=== PATIENT | female | born 1985 | race Two or more races ===

== ENCOUNTER 2024-10-22 14:15 | Inpatient (IN) | payer MEDICAID ==
[~2024-10-22] VITALS: Ht 162.6 cm; Wt 101.7 kg
--- NOTE | 2024-10-22 14:22 | DVHHP2 ---
History of Present Illness Reason for Visit: LEFT FOOT ULCER History of Present Illness Tuyet Hooks is a 39-year-old female with past medical history of hypertension, hyperlipidemia, diabetes type 2, right knee surgery, right foot surgery, left foot partial amputation, and who presents to the hospital with left foot ulcer with podiatry. Per podiatry she will have surgery this Friday. Patient also reports that she had pneumonia since June and was not taking medications for it. Patient states that she is allergic to Dilaudid gets hives and GI symptoms. She also reports that penicillin she has a high tolerance to which is no longer effective. Patient states that she sees a auto polisher, hop picker, and sales department clerk. She denies any chest pain, shortness of breath, fever, chills, lightheadedness, weakness, dizziness, abdominal pain, nausea, vomiting, or diarrhea. Cardiovascular: HTN, hyperipidemia Endocrine: Diabetes Past Surgical History: , Other (Right knee surgery, right foot surgery, and left foot partial amputation) Family History: Cancer, DM, Other (Mom with colon cancer dad with diabetes) Smoke: No ALCOHOL: none Drugs: None Lives: with Family Domestic Violence: Neg Review of Systems Skin: Other (Left foot ulcer) Exam General Appearance: Alert, Oriented X3, Cooperative, No acute distress Respiratory: Normal air movement Cardiovascular: Normal S1, Normal S2 Extremities: Other Neuro: Normal gait, Normal speech, Sensation intact Psych/Mental Status: Mental status NL, Mood NL Assessment/Plan Assessment/Plan Assessment Ulcer of left foot rule out cellulitis Rule out pneumonia Callus of foot History of hypertension History of hyperlipidemia History of diabetes type 2 History of right knee surgery History of right foot surgery History of left partial foot amputation History of C-sections Plan Admit to med surge Antiemetics Pain management IV antibiotics-clindamycin CBC BNP ESR CRP Lactic Blood cultures Chest x-ray ordered Wound culture Diet Hemoglobin A1c ISS and Accu-Cheks Home medications reconciled DVT prophylaxis-SCDs PUD prophylaxis-not indicated history of GERD or GI bleed Podiatry following Plan for surgery on Friday Plan discussed with: Patient My Orders Orders - DESHAWN POOLE ORDER SCHEDULE CLERK Procedure Category Date Status Time Admit ADMIT 10/22/24 Verified 14:21 Allergies JASKARAN 10/22/24 Verified 14:21 Code Status CODE 10/22/24 Verified 14:21 Hydrocodone-Acet PHA 10/22/24 Verified 5/325mg Tab ([place] 14:30 Ondansetron Hcl PHA 10/22/24 Verified (Zofran) 14:30 Complete Blood Count LAB 10/23/24 Verified 04:00 Comprehensive LAB 10/23/24 Verified Metabolic Panel 04:00 Cardiac DIET 10/22/24 Verified Diet-2gna,Lofat,Lochol Dinner Condition: Stable JASKARAN 10/22/24 Verified 14:21 Acetaminophen Tablet PHA 10/22/24 Verified (Tylenol Tablet) 14:30 Morphine Sulfate PHA 10/22/24 Verified Injection 14:30 Sequential JASKARAN 10/22/24 Verified Compression Device Date of Service: October 22, 2024 Billing Provider: DESHAWN POOLE Common Visit Codes: [id number] INP/OBS CARE (HIGH) DESHAWN POOLE October 22, 2024 14:22
[2024-10-22] MEDS ORDERED: DEXTROSE (50%) 50ML SYRG IV PRN (14:30)
[2024-10-22] MEDS ORDERED: ACETAMINOPHEN 325 MG TAB PO PRN (14:30)
[2024-10-22 15:12] LABS: Basophils # (auto) 0 10 ^3/uL (0-0.2); Basophils % (auto) 0.3 % (0.0-2.0); Eosinophils # (auto) 0.2 10 ^3/uL (0-0.8); Eosinophils % (auto) 5.5 % (0.0-7.0); Hematocrit 24.6 % (36.0-46.0); Hemoglobin 8.2 g/dL (12.2-16.2); Lymphocytes # (auto) 1.8 10 ^3/uL (0.4-5.4); Lymphocytes % (auto) 41.9 % (10.0-50.0); Mean Corpuscular Hemoglobin 27.1 pg (28.0-32.0); Mean Corpuscular Hgb Conc. 33.2 g/dL (32.0-36.0); Mean Corpuscular Volume 81.8 fL (80.0-100.0); Monocytes # (auto) 0.4 10 ^3/uL (0-1.3); Monocytes % (auto) 8.5 % (0.0-12.0); Neutrophils # (auto) 1.9 10 ^3/uL (1.6-8.6); Neutrophils % (auto) 43.8 % (37.0-80.0); Nucleated Red Blood Cells % 0.1 %; Platelet Count (auto) 392 10^3/uL (140-450); Red Blood Cells 3.01 10^6/uL (4.0-5.20); Red Cell Distribution Width 14.3 % (11.8-14.3); White Blood Cell 4.3 10^3/uL (4.4-10.8)
[2024-10-22 15:24] LABS: Anion Gap 8 (5-15); Carbon Dioxide 21 mmol/L (20-31); Potassium 4.5 mmol/L (3.5-5.1); Sodium 142 mmol/L (136-145)
[2024-10-22 15:28] LABS: Calcium 8.4 mg/dL (8.7-10.4); Chloride 113 mmol/L (98-107)
[2024-10-22 15:30] LABS: BUN/Creatinine Ratio 8.5 (10.0-20.0); Blood Urea Nitrogen 21 mg/dL (9-23); Glucose 170 mg/dL (74-106)
--- NOTE | 2024-10-22 15:31 | DVH ---
CHEST RADIOGRAPH Indication: r/o pna Technique: Single frontal view of the chest was obtained COMPARISON: None FINDINGS: Lines and Tubes: None Lungs: Mild increased interstitial prominence Pleura: No effusion. No pneumothorax. Cardiomediastinal contours: Unremarkable Bones: Unremarkable IMPRESSION: Possible mild pulmonary vascular congestion or viral pneumonia. No focal airspace consolidation.
[2024-10-22 15:41] LABS: CRP High Sensitivity 2.06 mg/dL (<1.0)
[2024-10-22 15:45] LABS: Erythrocyte Sedimentation Rate 124 mm/hr (0-20)
[2024-10-22] MEDS: ACCU-CHEK COMFORT CURVE STRIP VI SCH (17:00)
[2024-10-22] MEDS: InsuLIN REG 1unit/0.01ml Soln (100units/ml) SC SCH (17:00)
[2024-10-22 17:12] VITALS: BP 137/74; PULSE 75; RESP 18; TEMP 97.4; O2SAT 100
[2024-10-22] MEDS: CLINDAMYCIN 300MG IV 50 ML IV SCH (18:37)
[2024-10-22] MEDS: FUROSEMIDE 20 MG TAB PO SCH (18:46)
[2024-10-22 21:00] VITALS: BP 148/76; PULSE 83; RESP 19; TEMP 97; O2SAT 100
[2024-10-22] MEDS: ATORVASTATIN 20 MG TAB PO SCH (21:11)
[2024-10-22] MEDS: MORPHINE SULFATE INJ 2 MG/ml SYRG IV PRN (21:12)
[2024-10-23] VITALS (7 sets, daily range): BP systolic 118–145; BP diastolic 67–84; PULSE 70–81; RESP 16–19; TEMP 97.1–98.6; O2SAT 98–100
[2024-10-23 07:35] LABS: Anion Gap 10 (5-15); BUN/Creatinine Ratio 8.9 (10.0-20.0); Blood Urea Nitrogen 22 mg/dL (9-23); Calcium 8.8 mg/dL (8.7-10.4); Carbon Dioxide 21 mmol/L (20-31); Potassium 4.3 mmol/L (3.5-5.1); Sodium 143 mmol/L (136-145); Total Protein 6.6 g/dL (5.7-8.2)
[2024-10-23 07:44] LABS: Alanine Aminotransferase < 9 U/L (7-40); Albumin 3.2 g/dL (3.2-4.8); Alkaline Phosphatase 148 U/L (46-116); Aspartate Aminotransferase 10 U/L (13-40); Bilirubin, Total < 0.2 mg/dL (0.2-1.0); Chloride 112 mmol/L (98-107); Glucose 175 mg/dL (74-106)
[2024-10-23 08:11] LABS: Basophils # (auto) 0 10 ^3/uL (0-0.2); Basophils % (auto) 0.2 % (0.0-2.0); Eosinophils # (auto) 0.3 10 ^3/uL (0-0.8); Eosinophils % (auto) 6.3 % (0.0-7.0); Hematocrit 25.3 % (36.0-46.0); Hemoglobin 8.7 g/dL (12.2-16.2); Lymphocytes # (auto) 2.5 10 ^3/uL (0.4-5.4); Lymphocytes % (auto) 46.4 % (10.0-50.0); Mean Corpuscular Hemoglobin 28.1 pg (28.0-32.0); Mean Corpuscular Hgb Conc. 34.4 g/dL (32.0-36.0); Mean Corpuscular Volume 81.7 fL (80.0-100.0); Monocytes # (auto) 0.5 10 ^3/uL (0-1.3); Monocytes % (auto) 10.1 % (0.0-12.0); Nucleated Red Blood Cells % 0.2 %; Platelet Count (auto) 378 10^3/uL (140-450); White Blood Cell 5.3 10^3/uL (4.4-10.8)
[2024-10-23 08:37] LABS: Opiate Scree,Urine Neg (NEGATIVE)
[2024-10-23 08:48] LABS: Amphetamine Screen, Urine Neg (NEGATIVE); Barbiturate Scree,Urine Neg (NEGATIVE); Benzodiazephine Screen, Urine Neg (NEGATIVE); Phencyclidine Screen, Urine Neg (NEGATIVE)
[2024-10-23 08:49] LABS: Cannabinoid Screen, Urine Neg (NEGATIVE); Cocaine Screen, Urine Neg (NEGATIVE)
[2024-10-23] MEDS: amLODIPine BESYLATE 5 MG TAB PO SCH (09:42)
[2024-10-23] MEDS: CHOLECALCIFEROL (VITD3) 1,000UNIT=25mCg TAB PO SCH (09:42)
[2024-10-23] MEDS: LISINOPRIL 20 MG TAB PO SCH (09:43)
--- NOTE | 2024-10-23 10:13 | DVHPN2 ---
Subjective 39-year-old female diabetic with a history of diabetes and hypertension hypercholesterolemia and a wound of her left foot was sent to the hospital by her clinic lead because of nonhealing wound and osteomyelitis that she needs surgery for Changes from previous H/P or p: Changes Skin: Other (Left foot ulcer) Objective Vitals Vital Signs Date Time Temp Pulse Resp B/P (MAP) Pulse Ox O2 Delivery O2 Flow Rate FiO2 10/23/24 09:43 129/68 10/23/24 09:00 98.4 73 16 98 98.4 10/23/24 08:08 Room Air* 0 21 Intake/Output Intake and Output 10/23/24 07:00 Intake Total 800 ml Balance 800 ml Intake Oral 800 ml # Voids 2 General Appearance: Alert, Oriented X3, Cooperative Extremities: No edema Medications Current Medications Medications Dose Ordered Sig/Thaddeus Route Start Time Stop Time Status Last Admin Dose Admin Acetaminophen/ Hydrocodone Bitart 1 tab Q4HP PRN PO 10/22/24 14:30 Ondansetron HCl 4 mg Q4HP PRN IV 10/22/24 14:30 Acetaminophen 650 mg Q6HP PRN PO 10/22/24 14:30 Morphine Sulfate 2 mg Q4HPRN PRN IV 10/22/24 14:30 10/23/24 06:19 2 MG Clindamycin Phosphate 50 ml @ 50 mls/hr Q8HR IV 10/22/24 14:45 10/23/24 05:12 50 MLS/HR Diagnostic Test (Pha) 1 strip ACHS 10/22/24 17:00 10/23/24 06:28 1 STRIP Insulin Human Regular ACHS SC 10/22/24 17:00 10/23/24 06:23 3 UNITS Dextrose 50 ml UD PRN IV 10/22/24 14:30 Furosemide 20 mg BIDD PO 10/22/24 18:00 10/23/24 05:11 20 MG Lisinopril 20 mg DAILY PO 10/23/24 10:00 10/23/24 09:43 20 MG Amlodipine Besylate 10 mg DAILY PO 10/23/24 10:00 10/23/24 09:42 10 MG Atorvastatin Calcium 40 mg HS PO 10/22/24 22:00 10/22/24 21:11 40 MG Hydralazine HCl 50 mg TID PRN PO 10/22/24 14:30 Cholecalciferol 5,000 unit DAILY PO 10/23/24 10:00 10/23/24 09:42 5,000 UNIT Laboratory Results Laboratory Tests 10/23/24 05:23 Chemistry Test 10/22/24 14:45 10/23/24 05:23 Calcium Level 8.4 mg/dL (8.7-10.4) L 8.8 mg/dL (8.7-10.4) Albumin 3.2 g/dL (3.2-4.8) Total Protein 6.6 g/dL (5.7-8.2) LFT Test 10/23/24 05:23 Alanine Aminotransferase (ALT) < 9 U/L (7-40) Alkaline Phosphatase 148 U/L (46-116) H Aspartate Amino Transferase (AST) 10 U/L (13-40) L Total Bilirubin < 0.2 mg/dL (0.2-1.0) L HgA1c, TSH Test 10/22/24 14:57 Hemoglobin A1c 8.1 % A1C (<5.7) H Urinalysis Test 10/23/24 06:30 Urine Color Pending Urine Clarity Pending Urine pH Pending Urine Specific [place] Pending Urine Protein Pending Urine Ketones Pending Urine Blood Pending Urine Nitrite Pending Urine Bilirubin Pending Urine Urobilinogen Pending Urine Leukocyte Esterase Pending Urine RBC Pending Urine Microscopic WBC Pending Urine Squamous Epithelial Cells Pending Urine Bacteria Pending Urine Glucose Pending Assessment/Plan Assessment/Plan Left foot cellulitis and nonhealing wound Hypertension Type 2 diabetes Mixed hyperlipidemia Chronic kidney disease Chronic anemia Plan IV antibiotics with clindamycin Podiatry consult Monitor the blood glucose with a sliding scale regular insulin Resume home medications Monitor closely Full code Wound culture Advance directives discussed for 16 minutes Plan discussed with: Patient, Spouse Date of Service: October 23, 2024 Billing Provider: PATSY DAVIDSON MD Common Visit Codes: [id number] INP/OBS CARE(HIGH) Secondary Visit Codes: [id number] CARE PLAN 30 MINUTES PATSY DAVIDSON MD October 23, 2024 10:13
[2024-10-23 10:14] LABS: Urine Bacteria FEW /hpf (None Seen); Urine Blood 3+ /uL (Negative); Urine Budding Yeast OCCASIONAL /hpf (None Seen); Urine Clarity Turbid (Clear); Urine Color Light-Yellow (Yellow); Urine Hyaline Cast FEW /lpf (0 - 2); Urine Protein, UAD 3+ (Negative); Urine Specific Gravity 1.014 (1.001-1.035); Urine Squamous Epithelial Cell FEW /hpf (<5); Urine Urobilinogen Normal (Negative); Urine WBC 7 /HPF (0-5)
--- NOTE | 2024-10-23 14:16 | MEDREC ---
[facility] Intervention Section I [facility] Intervention: Dose optimization(PK/PD) (PLEASE CONSIDER INCREASING DOSE OF CLINDAMYCIN TO 600 MG IV Q8H FOR CELLULITIS) JOSE E MARTINEZ October 23, 2024 14:16
[2024-10-24] VITALS (7 sets, daily range): BP systolic 135–150; BP diastolic 70–84; PULSE 70–85; RESP 16–18; TEMP 97.4–98.6; O2SAT 95–100
--- NOTE | 2024-10-24 11:16 | DVHPN2 ---
Subjective No new complaints UA shows blood but the patient is on her menstrual period Changes from previous H/P or p: Changes Skin: Other (Left foot ulcer) Objective Vitals Vital Signs Date Time Temp Pulse Resp B/P (MAP) Pulse Ox O2 Delivery O2 Flow Rate FiO2 10/24/24 09:40 148/84 10/24/24 08:00 79 16 100 Room Air* 0 21 10/24/24 05:00 97.6 97.6 Intake/Output Intake and Output 10/24/24 07:00 Intake Total 1085 ml Balance 1085 ml Intake Oral 1085 ml # Voids 2 # Bowel Movements 2 General Appearance: Alert, Oriented X3, Cooperative Extremities: No edema Medications Current Medications Medications Dose Ordered Sig/Thaddeus Route Start Time Stop Time Status Last Admin Dose Admin Acetaminophen/ Hydrocodone Bitart 1 tab Q4HP PRN PO 10/22/24 14:30 Ondansetron HCl 4 mg Q4HP PRN IV 10/22/24 14:30 Acetaminophen 650 mg Q6HP PRN PO 10/22/24 14:30 Morphine Sulfate 2 mg Q4HPRN PRN IV 10/22/24 14:30 10/23/24 20:46 2 MG Diagnostic Test (Pha) 1 strip ACHS 10/22/24 17:00 10/24/24 06:29 1 STRIP Insulin Human Regular ACHS SC 10/22/24 17:00 10/24/24 06:28 2 UNITS Dextrose 50 ml UD PRN IV 10/22/24 14:30 Furosemide 20 mg BIDD PO 10/22/24 18:00 10/24/24 06:18 20 MG Lisinopril 20 mg DAILY PO 10/23/24 10:00 10/24/24 09:39 20 MG Amlodipine Besylate 10 mg DAILY PO 10/23/24 10:00 10/24/24 09:40 10 MG Atorvastatin Calcium 40 mg HS PO 10/22/24 22:00 10/23/24 20:54 40 MG Hydralazine HCl 50 mg TID PRN PO 10/22/24 14:30 Cholecalciferol 5,000 unit DAILY PO 10/23/24 10:00 10/24/24 09:41 5,000 UNIT Clindamycin Phosphate 50 ml @ 50 mls/hr Q8HR IV 10/24/24 14:00 Laboratory Results Laboratory Tests 10/23/24 05:23 Urinalysis Test 10/23/24 06:30 Urine Color Light-yellow (Yellow) Urine Clarity Turbid (Clear) H Urine pH 6.0 (5.0-9.0) Urine Specific [place] 1.014 (1.001-1.035) Urine Protein 3+ (Negative) H Urine Ketones Negative (Negative) Urine Blood 3+ /uL (Negative) H Urine Nitrite Negative (Negative) Urine Bilirubin Negative (Negative) Urine Urobilinogen Normal mg/dL (Negative) Urine Leukocyte Esterase Negative /uL (Negative) Urine RBC 1 /hpf (0 - 4) Urine Microscopic WBC 7 /HPF (0-5) H Urine Squamous Epithelial Cells Few /hpf (<5) Urine Bacteria Few /hpf (None Seen) H Urine Hyaline Casts Few /lpf (0 - 2) Urine Yeast (Budding) Occasional /hpf (None Urine Glucose 4+ mg/dL (Normal) H Microbiology Microbiology Date/Time Source Procedure Growth Status 10/22/24 14:51 Blood Blood Culture - Preliminary NO GROWTH AFTER 24 HOURS OF INCUBATION. Resulted Assessment/Plan Assessment/Plan Left foot cellulitis and nonhealing wound Hypertension Type 2 diabetes Mixed hyperlipidemia Chronic kidney disease Chronic anemia Plan IV antibiotics with clindamycin Podiatry consult Monitor the blood glucose with a sliding scale regular insulin Resume home medications Monitor closely Full code Wound culture Advance directives discussed for 16 minutes 10/24/2024: NPO after midnight for surgery tomorrow Podiatry consult is on Continue IV clindamycin Monitor the patient closely Discussed with the patient and at the bedside Plan discussed with: Patient, Spouse My Orders Orders - PATSY DAVISDON MD Procedure Category Date Status Time Clindamycin 600mg Iv PHA 10/24/24 In Process (Cleocin Iv) 14:00 Date of Service: October 24, 2024 Billing Provider: PATSY DAVIDSON MD Common Visit Codes: [id number] INP/OBS CARE(MOD) PATSY DAVIDSON MD October 24, 2024 11:16
[2024-10-24] MEDS: CLINDAMYCIN 600MG IV 50 ML IV SCH (13:54)
[2024-10-24] MEDS: ONDANSETRON HCL 4 MG/2 ML VIAL IV PRN (23:51)
[2024-10-25] VITALS (9 sets, daily range): BP systolic 120–148; BP diastolic 60–88; PULSE 67–88; RESP 14–18; TEMP 97.7–98.1; O2SAT 93–100
[2024-10-25 00:34] LABS: INR 0.95 (0.9-1.15); Partial Thromboplastin Time 24.4 SEC (24.5-34.5); Prothrombin Time 10.1 sec (9.3-11.8)
[2024-10-25 06:18] LABS: INR 0.95 (0.9-1.15); Partial Thromboplastin Time < 20.0 SEC (24.5-34.5); Prothrombin Time 10.1 sec (9.3-11.8)
--- NOTE | 2024-10-25 10:27 | DVHPN2 ---
Subjective No new complaints Surgery today Changes from previous H/P or p: Changes Skin: Other (Left foot ulcer) Objective Vitals Vital Signs Date Time Temp Pulse Resp B/P (MAP) Pulse Ox O2 Delivery O2 Flow Rate FiO2 10/25/24 09:38 123/69 10/25/24 09:00 97.8 77 17 98 97.8 10/24/24 20:00 Room Air* 0 21 Intake/Output Intake and Output 10/25/24 07:00 Intake Total 1083 ml Balance 1083 ml Intake Oral 983 ml IV Total 100 ml # Voids 6 # Bowel Movements 1 General Appearance: Alert, Oriented X3, Cooperative Extremities: No edema Medications Current Medications Medications Dose Ordered Sig/Thaddeus Route Start Time Stop Time Status Last Admin Dose Admin Acetaminophen/ Hydrocodone Bitart 1 tab Q4HP PRN PO 10/22/24 14:30 Ondansetron HCl 4 mg Q4HP PRN IV 10/22/24 14:30 10/25/24 06:18 4 MG Acetaminophen 650 mg Q6HP PRN PO 10/22/24 14:30 Morphine Sulfate 2 mg Q4HPRN PRN IV 10/22/24 14:30 10/24/24 22:42 2 MG Diagnostic Test (Pha) 1 strip ACHS 10/22/24 17:00 10/25/24 06:12 1 STRIP Insulin Human Regular ACHS SC 10/22/24 17:00 10/24/24 22:52 4 UNITS Dextrose 50 ml UD PRN IV 10/22/24 14:30 Furosemide 20 mg BIDD PO 10/22/24 18:00 10/24/24 17:42 20 MG Lisinopril 20 mg DAILY PO 10/23/24 10:00 10/25/24 09:38 20 MG Amlodipine Besylate 10 mg DAILY PO 10/23/24 10:00 10/25/24 09:38 10 MG Atorvastatin Calcium 40 mg HS PO 10/22/24 22:00 10/24/24 22:22 40 MG Hydralazine HCl 50 mg TID PRN PO 10/22/24 14:30 Cholecalciferol 5,000 unit DAILY PO 10/23/24 10:00 10/25/24 09:38 5,000 UNIT Clindamycin Phosphate 50 ml @ 50 mls/hr Q8HR IV 10/24/24 14:00 10/25/24 06:13 50 MLS/HR Laboratory Results Laboratory Tests 10/23/24 05:23 Coagulation Test 10/24/24 23:53 10/25/24 05:30 Prothrombin Time 10.1 sec (9.3-11.8) 10.1 sec (9.3-11.8) Prothrombin Time INR 0.95 (0.9-1.15) 0.95 (0.9-1.15) Activated Partial Thromboplast Time 24.4 SEC (24.5-34.5) L < 20.0 SEC (24.5-34.5) L Urinalysis Test 10/23/24 06:30 Urine Color Light-yellow (Yellow) Urine Clarity Turbid (Clear) H Urine pH 6.0 (5.0-9.0) Urine Specific [place] 1.014 (1.001-1.035) Urine Protein 3+ (Negative) H Urine Ketones Negative (Negative) Urine Blood 3+ /uL (Negative) H Urine Nitrite Negative (Negative) Urine Bilirubin Negative (Negative) Urine Urobilinogen Normal mg/dL (Negative) Urine Leukocyte Esterase Negative /uL (Negative) Urine RBC 1 /hpf (0 - 4) Urine Microscopic WBC 7 /HPF (0-5) H Urine Squamous Epithelial Cells Few /hpf (<5) Urine Bacteria Few /hpf (None Seen) H Urine Hyaline Casts Few /lpf (0 - 2) Urine Yeast (Budding) Occasional /hpf (None Urine Glucose 4+ mg/dL (Normal) H Microbiology Microbiology Date/Time Source Procedure Growth Status 10/23/24 09:25 Foot Left Gram Stain - Final Resulted 10/23/24 09:25 Foot Left Wound Culture - Preliminary Resulted 10/22/24 14:51 Blood Blood Culture - Preliminary NO GROWTH AFTER 48 HOURS OF INCUBATION. Resulted Assessment/Plan Assessment/Plan Left foot cellulitis and nonhealing wound Hypertension Type 2 diabetes Mixed hyperlipidemia Chronic kidney disease Chronic anemia Plan IV antibiotics with clindamycin Podiatry consult Monitor the blood glucose with a sliding scale regular insulin Resume home medications Monitor closely Full code Wound culture Advance directives discussed for 16 minutes 10/24/2024: NPO after midnight for surgery tomorrow Podiatry consult is on Continue IV clindamycin Monitor the patient closely Discussed with the patient and at the bedside 10/25/2024: Surgery is for today Monitor the patient closely Continue IV clindamycin The rest of the management will depend on the hospital course Plan discussed with: Patient, Spouse My Orders Orders - PATSY DAVIDSON MD Procedure Category Date Status Time Npo (Nothing By DIET 10/25/24 Transmitted Mouth) Diet Breakfast Date of Service: October 25, 2024 Billing Provider: PATSY DAVIDSON MD Common Visit Codes: [id number] INP/OBS CARE(HIGH) PATSY DAVIDSON MD October 25, 2024 10:27
--- NOTE | 2024-10-25 12:39 | DVHINCON2 ---
Date Seen: October 25, 2024 Reason for Consultation Left foot wound History of Present Illness Tuyet Hooks is a 39-year-old female with past medical history of hypertension, hyperlipidemia, diabetes type 2, right knee surgery, right foot surgery, left foot partial amputation, and who presents to the [facility] with left foot ulcer with podiatry. Per podiatry she will have surgery this Friday. Patient also reports that she had pneumonia since June and was not taking medications for it. Patient states that she is allergic to Dilaudid gets hives and GI symptoms. She also reports that penicillin she has a high tolerance to which is no longer effective. Patient states that she sees a pharmacy student, on air director, and space sciences director. She denies any chest pain, shortness of breath, fever, chills, lightheadedness, weakness, dizziness, abdominal pain, nausea, vomiting, or diarrhea. Past Medical History See H&P Past Surgical History See H&P Family History: Patient reports no known family medical history. Allergies: Coded Allergies: Hydromorphone (Verified Allergy, Intermediate, 10/22/24) Penicillins (Verified Allergy, Unknown, 10/22/24) Current Medications Current Medications Medications (Trade) Dose Ordered Sig/Thaddeus Route PRN Reason Start Time Stop Time Status Last Admin Clindamycin Phosphate 50 ml @ 50 mls/hr Q8HR IV 10/24/24 14:00 10/25/24 06:13 Vital Signs Vital Signs Date Time Temp Pulse Resp B/P (MAP) Pulse Ox O2 Delivery O2 Flow Rate FiO2 10/25/24 09:38 123/69 10/25/24 09:00 97.8 77 17 98 97.8 10/25/24 08:00 Room Air* 0 21 Physical Exam Dermatological: Skin is dry with mild erythema and some maceration around the wound site No gross deformities noted Mild non-pitting edema present bilaterally Wound: Location: Left mid foot TMA site Measures: 3 cm in length, 3 cm in width, and on cm in depth. Depth: Full thickness Base: Slough necrosis Drainage: Yes Odor: None Periwound: Yes Vascular: Dorsalis pedis and posterior tibial pulses are 1+ bilaterally Capillary refill is under 2 seconds Skin temperature is warm bilaterally Neurologic: Protective sensation is absent on the plantar forefoot bilaterally Monofilament testing reveals decreased sensation in multiple plantar sites Musculoskeletal: Range of motion at the ankle and MTP joints is within normal limits. Strength is 5/5 in all tested muscle groups. Gait is antalgic due to offloading of the affected limb. Labs/Diagnostic Data Labs Test 10/25/24 11:48 10/25/24 05:30 10/24/24 23:53 10/23/24 06:30 Range/Units POC Glucose 145 H 70-106 mg/dl Prothrombin Time 10.1 9.3-11.8 sec Prothrombin Time INR 0.95 0.9-1.15 Activated Partial Thromboplast Time < 20.0 L 24.5-34.5 SEC Beta HCG, Quantitative 0.9 L 1.5-4.2 mIU/mL Urine Color Light-yellow Yellow Urine Clarity Turbid H Clear Urine pH 6.0 5.0-9.0 Urine Specific [place] 1.014 1.001-1.035 Urine Protein 3+ H Negative Urine Ketones Negative Negative Urine Blood 3+ H Negative /uL Urine Nitrite Negative Negative Urine Bilirubin Negative Negative Urine Urobilinogen Normal Negative mg/dL Urine Leukocyte Esterase Negative Negative /uL Urine RBC 1 0 - 4 /hpf Urine Microscopic WBC 7 H 0-5 /HPF Urine Squamous Epithelial Cells Few <5 /hpf Urine Bacteria Few H None Seen /hpf Urine Hyaline Casts Few 0 - 2 /lpf Urine Yeast (Budding) Occasional None Seen /hpf Urine Glucose 4+ H Normal mg/dL Urine Opiates Screen Neg NEGATIVE Urine Fentanyl Screen Neg NEGATIVE Urine Barbiturates Screen Neg NEGATIVE Urine Phencyclidine Screen Neg NEGATIVE Urine Amphetamines Screen Neg NEGATIVE Urine Benzodiazepines Screen Neg NEGATIVE Urine Cocaine Screen Neg NEGATIVE Urine Cannabinoids Screen Neg NEGATIVE Test 10/23/24 05:23 10/22/24 14:57 10/22/24 14:45 Range/Units White Blood Count 5.3 4.4-10.8 10^3/uL Red Blood Count 3.10 L 4.0-5.20 10^6/uL Hemoglobin 8.7 L 12.2-16.2 g/dL Hematocrit 25.3 L 36.0-46.0 % Mean Corpuscular Volume 81.7 80.0-100.0 fL Mean Corpuscular Hemoglobin 28.1 28.0-32.0 pg Mean Corpuscular Hemoglobin Concent 34.4 32.0-36.0 g/dL Red Cell Distribution Width 14.0 11.8-14.3 % Platelet Count 378 140-450 10^3/uL Mean Platelet Volume 7.4 6.9-10.8 fL Neutrophils (%) (Auto) 37.0 37.0-80.0 % Lymphocytes (%) (Auto) 46.4 10.0-50.0 % Monocytes (%) (Auto) 10.1 0.0-12.0 % Eosinophils (%) (Auto) 6.3 0.0-7.0 % Basophils (%) (Auto) 0.2 0.0-2.0 % Neutrophils # (Auto) 2.0 1.6-8.6 10 ^3/uL Lymphocytes # (Auto) 2.5 0.4-5.4 10 ^3/uL Monocytes # (Auto) 0.5 0-1.3 10 ^3/uL Eosinophils # (Auto) 0.3 0-0.8 10 ^3/uL Basophils # (Auto) 0 0-0.2 10 ^3/uL Nucleated Red Blood Cells 0.2 % Sodium Level 143 136-145 mmol/L Potassium Level 4.3 3.5-5.1 mmol/L Chloride Level 112 H 98-107 mmol/L Carbon Dioxide Level 21 20-31 mmol/L Anion Gap 10 5-15 Blood Urea Nitrogen 22 9-23 mg/dL Creatinine 2.48 H 0.550-1.02 mg/dL Glomerular Filtration Rate Calc 25 >90 mL/min BUN/Creatinine Ratio 8.9 L 10.0-20.0 Serum Glucose 175 H 74-106 mg/dL Calcium Level 8.8 8.7-10.4 mg/dL Total Bilirubin < 0.2 L 0.2-1.0 mg/dL Aspartate Amino Transferase (AST) 10 L 13-40 U/L Alanine Aminotransferase (ALT) < 9 7-40 U/L Alkaline Phosphatase 148 H 46-116 U/L Total Protein 6.6 5.7-8.2 g/dL Albumin 3.2 3.2-4.8 g/dL Hemoglobin A1c 8.1 H <5.7 % A1C Erythrocyte Sedimentation Rate 124 H 0-20 mm/hr Lactic Acid Level 0.4 0.4-2.0 mmol/L C-Reactive Protein High Sensitivity 2.06 H <1.0 mg/dL Microbiology Date/Time Source Procedure Growth Status 5/10/25 09:25 Foot Left Gram Stain - Final Resulted 10/23/24 09:25 Foot Left Wound Culture - Preliminary Resulted 10/22/24 14:51 Blood Blood Culture - Preliminary NO GROWTH AFTER 48 HOURS OF INCUBATION. Resulted Problems(with codes): (1) Osteomyelitis of foot (2) Abscess of foot (3) Cellulitis of foot (4) Diabetic ulcer of foot associated with type 2 diabetes mellitus, with bone involvement without evidence of necrosis Plan/Recommendation ASSESSMENT: Patient is a 39 year old seen on the floor for a worsening ulcer PLAN: - The patients chart was reviewed, clinical findings were discussed with the patient, the etiologies of the conditions were discussed in detail, and a treatment plan was agreed to at this time, with both oral and written instructi ons provided. - reviewed advanced imaging - discussed plan is to perform an incision and drainage - patient NPO since midnight - take her to the OR today - we will get cultures in the OR - can weightbear as tolerated in postoperative shoe All questions were answered and concerns addressed to the patient's satisfaction. The patient was given the phone number to the clinic and was told how to make contact with the clinic should any concerns or questions arise. Patient understands that if any questions or concerns arise prior to the next appointment, we should be contacted immediately. FOLLOW-UP: Continue to follow while inpatient Plan discussed with: Patient Date of Service: October 25, 2024 Billing Provider: HECTOR WRIGHT DPM Common Visit Codes: CONSULT ONLY Consultation Codes: [id number] CONSULT <80MIN HECTOR WRIGHT DPM October 25, 2024 12:39
[2024-10-25] MEDS ORDERED: fentaNYL CITRATE 100 MCG/2 ML VL ONE (12:50)
[2024-10-25] MEDS ORDERED: PROPOFOL 10 MG/ML 20 ML IV ONE (12:51)
[2024-10-25] MEDS ORDERED: LIDOCAINE 2% (LOCAL ANESTH.) PF 5ml SDV ONE (12:51)
[2024-10-25] MEDS: BUPIVACAINE 0.5% MPF INJ 30ML SDV IJ ONE (13:05)
--- NOTE | 2024-10-25 13:19 | DVHOP2 ---
Operative Report - 2 Report Details Date: 10/25/24 Preop Diagnosis: 1. Left foot osteomyelitis 2. Left foot abscess 3. Left foot cellulitis 4. Left foot chronic ulceration Postop Diagnosis: Same as preop Surgeon: Hector Wright MD Anesthesiologist: See anesthesia Anesthesia: Mac Consent: The patient was informed of the risks and benefits of the procedure. These include but are not limited to complications of anesthesia, postoperative infection, incomplete relief of symptoms, recurrence of symptoms, damage to blood vessels, nerves and tendons, deep venous thrombosis, pulmonary embolism and possible need for repeat surgery in the future. Complications: None Estimated Blood Loss: Minimal Fluids: See anesthesia Findings: Consistent with diagnosis Indications for Surgery: Worsening left foot wound Name of Procedure Performed 1. Left foot I&D to bone (53274) 2. Left foot bone biopsy () Procedure Details Procedure Details: PRE-PROCEDURE INFORMATION: In the pre-op holding area, the extremity to be operated on was clearly marked and the patient verified correct laterality of the marking. The patient was transferred to the OR table and placed in a supine position. A timeout was performed in which identification of the correct patient, procedure, location, and materials was done. The left foot and leg were prepped and draped in normal sterile fashion. DESCRIPTION OF PROCEDURE: Attention was directed to the left where area of fluctuance was noted. An incision was made over this area and was deepened through blunt dissection. The incision was deepened to the level of abscess and bone. Care was taken to the dissection to avoid any neurovascular and tendinous structures. The incision was deepened to the bone, and the abscess appeared to be purulent fluid consistent with pus. The cortices of the bone was then removed with rongeur an all necrotic tissue. After the abscess was drained, the area was irrigated with 3 L normal saline using cysto tubing. Deep cultures were then obtained from the wound. The area was then inspected and any areas of tracking, especially along the tendons were also drained. A bone biopsy was then taken of the left 1st metatarsal which was deepened to the muscle belly and tendons. The bone was then sent to pathology to determine the extent of osteomyelitis. The wound was packed with Betadine-soaked gauze and we will need to be closed at a later date. POSTOPERATIVE INFORMATION: The patient tolerated the above noted procedure and anesthesia well and was transferred to the PACU with vital signs stable, and vascular status intact with capillary refill intact to all digits. Patient will return to the floor continue IV antibiotics. Deep cultures were taken. Bone biopsy was taken. Patient will need 6 weeks of IV antibiotics. Patient will return to the OR on Friday for possible closure. Specimen: 1st metatarsal Condition Good Disposition Still a Patient HECTOR WRIGHT DPM October 25, 2024 13:18
[2024-10-26] VITALS (7 sets, daily range): BP systolic 120–151; BP diastolic 57–94; PULSE 77–94; RESP 16–18; TEMP 97.8–98.4; O2SAT 92–99
[2024-10-26 07:45] LABS: Anion Gap 8 (5-15); BUN/Creatinine Ratio 7.8 (10.0-20.0); Blood Urea Nitrogen 19 mg/dL (9-23); Magnesium 1.6 mg/dL (1.6-2.6); Potassium 4.7 mmol/L (3.5-5.1); Sodium 141 mmol/L (136-145)
[2024-10-26 07:46] LABS: Total Protein 5.8 g/dL (5.7-8.2)
[2024-10-26 07:48] LABS: Alanine Aminotransferase < 9 U/L (7-40); Albumin 2.8 g/dL (3.2-4.8); Alkaline Phosphatase 116 U/L (46-116); Aspartate Aminotransferase < 8 U/L (13-40); Bilirubin, Total 0.2 mg/dL (0.2-1.0); Calcium 8.6 mg/dL (8.7-10.4); Carbon Dioxide 20 mmol/L (20-31); Chloride 113 mmol/L (98-107); Glucose 140 mg/dL (74-106)
[2024-10-26 07:55] LABS: Basophils # (auto) 0 10 ^3/uL (0-0.2); Eosinophils # (auto) 0.2 10 ^3/uL (0-0.8); Hematocrit 22.4 % (36.0-46.0); Hemoglobin 7.7 g/dL (12.2-16.2); Nucleated Red Blood Cells % 0.1 %
[2024-10-26 08:00] LABS: Basophils % (auto) 0.1 % (0.0-2.0); Eosinophils % (auto) 3.4 % (0.0-7.0); Lymphocytes # (auto) 2.4 10 ^3/uL (0.4-5.4); Lymphocytes % (auto) 32.8 % (10.0-50.0); Mean Corpuscular Hemoglobin 28.1 pg (28.0-32.0); Mean Corpuscular Hgb Conc. 34.5 g/dL (32.0-36.0); Mean Corpuscular Volume 81.4 fL (80.0-100.0); Monocytes # (auto) 0.7 10 ^3/uL (0-1.3); Monocytes % (auto) 9.6 % (0.0-12.0); Neutrophils # (auto) 3.9 10 ^3/uL (1.6-8.6); Neutrophils % (auto) 54.1 % (37.0-80.0); Platelet Count (auto) 416 10^3/uL (140-450); Red Blood Cells 2.75 10^6/uL (4.0-5.20); Red Cell Distribution Width 13.7 % (11.8-14.3); White Blood Cell 7.3 10^3/uL (4.4-10.8)
--- NOTE | 2024-10-26 10:23 | DVHPN2 ---
Subjective Status post surgery yesterday for left foot osteomyelitis and abscess drainage Changes from previous H/P or p: Changes Skin: Other (Left foot ulcer) Objective Vitals Vital Signs Date Time Temp Pulse Resp B/P (MAP) Pulse Ox O2 Delivery O2 Flow Rate FiO2 10/26/24 09:56 78 17 120/57 10/26/24 09:00 97.8 94 97.8 10/26/24 08:00 Room Air* 0 21 Intake/Output Intake and Output 10/26/24 07:00 Intake Total 800 ml Balance 800 ml Intake Oral 650 ml IV Total 150 ml # Voids 3 General Appearance: Alert, Oriented X3, Cooperative Extremities: No edema Medications Current Medications Medications Dose Ordered Sig/Thaddeus Route Start Time Stop Time Status Last Admin Dose Admin Acetaminophen/ Hydrocodone Bitart 1 tab Q4HP PRN PO 10/22/24 14:30 Ondansetron HCl 4 mg Q4HP PRN IV 10/22/24 14:30 10/26/24 09:59 4 MG Acetaminophen 650 mg Q6HP PRN PO 10/22/24 14:30 Morphine Sulfate 2 mg Q4HPRN PRN IV 10/22/24 14:30 10/26/24 09:56 2 MG Diagnostic Test (Pha) 1 strip ACHS 10/22/24 17:00 10/26/24 06:18 1 STRIP Insulin Human Regular ACHS SC 10/22/24 17:00 10/25/24 22:32 3 UNITS Dextrose 50 ml UD PRN IV 10/22/24 14:30 Furosemide 20 mg BIDD PO 10/22/24 18:00 10/26/24 06:18 20 MG Lisinopril 20 mg DAILY PO 10/23/24 10:00 10/26/24 08:53 20 MG Amlodipine Besylate 10 mg DAILY PO 10/23/24 10:00 10/26/24 08:54 10 MG Atorvastatin Calcium 40 mg HS PO 10/22/24 22:00 10/25/24 21:15 40 MG Hydralazine HCl 50 mg TID PRN PO 10/22/24 14:30 Cholecalciferol 5,000 unit DAILY PO 10/23/24 10:00 10/26/24 08:54 5,000 UNIT Clindamycin Phosphate 50 ml @ 50 mls/hr Q8HR IV 10/24/24 14:00 10/26/24 06:18 50 MLS/HR Laboratory Results Laboratory Tests 10/26/24 06:44 Chemistry Test 10/26/24 06:44 Albumin 2.8 g/dL (3.2-4.8) L Calcium Level 8.6 mg/dL (8.7-10.4) L Magnesium Level 1.6 mg/dL (1.6-2.6) Total Protein 5.8 g/dL (5.7-8.2) LFT Test 10/26/24 06:44 Alanine Aminotransferase (ALT) < 9 U/L (7-40) Alkaline Phosphatase 116 U/L (46-116) Aspartate Amino Transferase (AST) < 8 U/L (13-40) L Total Bilirubin 0.2 mg/dL (0.2-1.0) Urinalysis Test 10/23/24 06:30 Urine Color Light-yellow (Yellow) Urine Clarity Turbid (Clear) H Urine pH 6.0 (5.0-9.0) Urine Specific [place] 1.014 (1.001-1.035) Urine Protein 3+ (Negative) H Urine Ketones Negative (Negative) Urine Blood 3+ /uL (Negative) H Urine Nitrite Negative (Negative) Urine Bilirubin Negative (Negative) Urine Urobilinogen Normal mg/dL (Negative) Urine Leukocyte Esterase Negative /uL (Negative) Urine RBC 1 /hpf (0 - 4) Urine Microscopic WBC 7 /HPF (0-5) H Urine Squamous Epithelial Cells Few /hpf (<5) Urine Bacteria Few /hpf (None Seen) H Urine Hyaline Casts Few /lpf (0 - 2) Urine Yeast (Budding) Occasional /hpf (None Urine Glucose 4+ mg/dL (Normal) H Microbiology Microbiology Date/Time Source Procedure Growth Status 10/25/24 13:15 Foot Left Gram Stain Pending Resulted 10/25/24 13:15 Foot Left Anaerobic Culture Pending Resulted 10/25/24 13:15 Foot Left Aerobic Culture - Preliminary Resulted 10/22/24 14:51 Blood Blood Culture - Preliminary NO GROWTH AFTER 72 HOURS OF INCUBATION. Resulted Assessment/Plan Assessment/Plan Left foot cellulitis and nonhealing wound Hypertension Type 2 diabetes Mixed hyperlipidemia Chronic kidney disease Chronic anemia Plan IV antibiotics with clindamycin Podiatry consult Monitor the blood glucose with a sliding scale regular insulin Resume home medications Monitor closely Full code Wound culture Advance directives discussed for 16 minutes 10/24/2024: NPO after midnight for surgery tomorrow Podiatry consult is on Continue IV clindamycin Monitor the patient closely Discussed with the patient and at the bedside 10/25/2024: Surgery is for today Monitor the patient closely Continue IV clindamycin The rest of the management will depend on the hospital course 10/26/2024: 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: Continue IV clindamycin Chronic kidney disease: Consult Nephrology Anemia: Get iron studies Order a PICC line We will arrange IV antibiotics for 6 weeks once the culture from the surgical specimen is back Monitor closely and the rest of the management will depend on the hospital course Hypomagnesemia: Replace Plan discussed with: Patient, Spouse Date of Service: October 26, 2024 Billing Provider: PATSY DAVIDSON MD Common Visit Codes: [id number] INP/OBS CARE(HIGH) PATSY DAVIDSON MD October 26, 2024 10:23
[2024-10-26 11:15] LABS: % Iron Saturation 14.6 % (15-50)
[2024-10-26] MEDS: MAGNESIUM OXIDE 400 MG TAB PO ONE (11:42)
--- NOTE | 2024-10-26 13:24 | DVHPN2 ---
Tuyet Crews is a 39-year-old female with past medical history of hypertension, hyperlipidemia, diabetes type 2, right knee surgery, right foot surgery, left foot partial amputation, and who presents to the hospital with left foot ulcer with podiatry. Per podiatry she will have surgery this Friday. Patient also reports that she had pneumonia since June and was not taking medications for it. Patient states that she is allergic to Dilaudid gets hives and GI symptoms. She also reports that penicillin she has a high tolerance to which is no longer effective. Patient states that she sees a laborer salvage, data reduction technician, and direct response consultant. She denies any chest pain, shortness of breath, fever, chills, lightheadedness, weakness, dizziness, abdominal pain, nausea, vomiting, or diarrhea. Changes from previous H/P or p: No Changes Skin: Other (Left foot ulcer) Objective Vitals Vital Signs Date Time Temp Pulse Resp B/P (MAP) Pulse Ox O2 Delivery O2 Flow Rate FiO2 10/26/24 09:56 78 17 120/57 10/26/24 09:00 97.8 94 97.8 10/26/24 08:00 Room Air* 0 21 Intake/Output Intake and Output 10/26/24 07:00 Intake Total 800 ml Balance 800 ml Intake Oral 650 ml IV Total 150 ml # Voids 3 Exam Dermatological: Skin is dry with mild erythema and some maceration around the wound site No gross deformities noted Mild non-pitting edema present bilaterally Wound: Location: Left mid foot TMA site Measures: 3 cm in length, 3 cm in width, and on cm in depth. Depth: Full thickness Base: Slough necrosis Drainage: Yes Odor: None Periwound: Yes Vascular: Dorsalis pedis and posterior tibial pulses are 1+ bilaterally Capillary refill is under 2 seconds Skin temperature is warm bilaterally Neurologic: Protective sensation is absent on the plantar forefoot bilaterally Monofilament testing reveals decreased sensation in multiple plantar sites Musculoskeletal: Range of motion at the ankle and MTP joints is within normal limits. Strength is 5/5 in all tested muscle groups. Gait is antalgic due to offloading of the affected limb. General Appearance: Alert, Oriented X3, Cooperative Extremities: No edema Medications Current Medications Medications Dose Ordered Sig/Thaddeus Route Start Time Stop Time Status Last Admin Dose Admin Acetaminophen/ Hydrocodone Bitart 1 tab Q4HP PRN PO 10/22/24 14:30 Ondansetron HCl 4 mg Q4HP PRN IV 10/22/24 14:30 10/26/24 09:59 4 MG Acetaminophen 650 mg Q6HP PRN PO 10/22/24 14:30 Morphine Sulfate 2 mg Q4HPRN PRN IV 10/22/24 14:30 10/26/24 09:56 2 MG Diagnostic Test (Pha) 1 strip ACHS 10/22/24 17:00 10/26/24 11:35 1 STRIP Insulin Human Regular ACHS SC 10/22/24 17:00 10/26/24 11:42 3 UNITS Dextrose 50 ml UD PRN IV 10/22/24 14:30 Furosemide 20 mg BIDD PO 10/22/24 18:00 10/26/24 06:18 20 MG Lisinopril 20 mg DAILY PO 10/23/24 10:00 10/26/24 08:53 20 MG Amlodipine Besylate 10 mg DAILY PO 10/23/24 10:00 10/26/24 08:54 10 MG Atorvastatin Calcium 40 mg HS PO 10/22/24 22:00 10/25/24 21:15 40 MG Hydralazine HCl 50 mg TID PRN PO 10/22/24 14:30 Cholecalciferol 5,000 unit DAILY PO 10/23/24 10:00 10/26/24 08:54 5,000 UNIT Clindamycin Phosphate 50 ml @ 50 mls/hr Q8HR IV 10/24/24 14:00 10/26/24 06:18 50 MLS/HR Magnesium Oxide 400 mg BID PO 10/26/24 22:00 Laboratory Results Laboratory Tests 10/26/24 06:44 Chemistry Test 10/26/24 06:44 Albumin 2.8 g/dL (3.2-4.8) L Calcium Level 8.6 mg/dL (8.7-10.4) L Magnesium Level 1.6 mg/dL (1.6-2.6) Total Protein 5.8 g/dL (5.7-8.2) LFT Test 10/26/24 06:44 Alanine Aminotransferase (ALT) < 9 U/L (7-40) Alkaline Phosphatase 116 U/L (46-116) Aspartate Amino Transferase (AST) < 8 U/L (13-40) L Total Bilirubin 0.2 mg/dL (0.2-1.0) Urinalysis Test 10/23/24 06:30 Urine Color Light-yellow (Yellow) Urine Clarity Turbid (Clear) H Urine pH 6.0 (5.0-9.0) Urine Specific [place] 1.014 (1.001-1.035) Urine Protein 3+ (Negative) H Urine Ketones Negative (Negative) Urine Blood 3+ /uL (Negative) H Urine Nitrite Negative (Negative) Urine Bilirubin Negative (Negative) Urine Urobilinogen Normal mg/dL (Negative) Urine Leukocyte Esterase Negative /uL (Negative) Urine RBC 1 /hpf (0 - 4) Urine Microscopic WBC 7 /HPF (0-5) H Urine Squamous Epithelial Cells Few /hpf (<5) Urine Bacteria Few /hpf (None Seen) H Urine Hyaline Casts Few /lpf (0 - 2) Urine Yeast (Budding) Occasional /hpf (None Urine Glucose 4+ mg/dL (Normal) H Microbiology Microbiology Date/Time Source Procedure Growth Status 10/25/24 13:15 Foot Left Gram Stain Pending Resulted 10/25/24 13:15 Foot Left Anaerobic Culture - Preliminary Resulted 10/25/24 13:15 Foot Left Aerobic Culture - Preliminary Resulted 10/22/24 14:51 Blood Blood Culture - Preliminary NO GROWTH AFTER 72 HOURS OF INCUBATION. Resulted Assessment/Plan Assessment/Plan ASSESSMENT: Patient is a 39-year-old seen on the floor 1 day s/p from a left foot I&D PLAN: - The patients chart was reviewed, clinical findings were discussed with the patient, the etiologies of the conditions were discussed in detail, and a treatment plan was agreed to at this time, with both oral and written instructions provided. - reviewed advanced imaging - discussed plan is to perform an incision and drainage with delayed closure tomorrow - patient will be NPO at midnight - take him to the OR tomorrow - reviewed other foot and recommend that she is close up care to prevent any worsening ulceration - can weightbear as tolerated in postoperative shoe All questions were answered and concerns addressed to the patient's satisfaction. The patient was given the phone number to the clinic and was told how to make contact with the clinic should any concerns or questions arise. Patient understands that if any questions or concerns arise prior to the next appointment, we should be contacted immediately. FOLLOW-UP: Continue to follow while inpatient Plan discussed with: Patient My Orders Orders - HECTOR WRIGHT DPM Procedure Category Date Status Time Cardiac DIET 10/25/24 Transmitted Diet-2gna,Lofat,Lochol Dinner Npo After Midnight JASKARAN 10/26/24 Transmitted 13:23 Npo (Nothing By DIET 10/27/24 Transmitted Mouth) Diet Breakfast Problem List: (1) Cellulitis of foot (2) Abscess of foot (3) Osteomyelitis of foot (4) Diabetic ulcer of foot associated with type 2 diabetes mellitus, with bone involvement without evidence of necrosis Date of Service: October 26, 2024 Billing Provider: HECTOR WRIGHT DPM Common Visit Codes: [id number] INP/OBS CARE(HIGH) HECTOR WRGIHT DPM October 26, 2024 13:24
[2024-10-26] MEDS: HYDROcodone-ACET 5/325MG TAB PO PRN (13:59)
[2024-10-26] MEDS: MAGNESIUM OXIDE 400 MG TAB PO SCH (21:07)
[2024-10-27] VITALS (8 sets, daily range): BP systolic 126–151; BP diastolic 60–85; PULSE 65–100; RESP 13–18; TEMP 97.8–98.6; O2SAT 94–100
[2024-10-27 01:42] LABS: Urine Bacteria FEW /hpf (None Seen); Urine Blood 1+ /uL (Negative); Urine Clarity Clear (Clear); Urine Color Light-Yellow (Yellow); Urine Protein, UAD 3+ (Negative); Urine Specific Gravity 1.011 (1.001-1.035); Urine Squamous Epithelial Cell FEW /hpf (<5); Urine Urobilinogen Normal (Negative); Urine WBC 2 /HPF (0-5); Urine pH 6.5 (5.0-9.0)
[2024-10-27 07:00] LABS: Alkaline Phosphatase 103 U/L (46-116); Anion Gap 7 (5-15); BUN/Creatinine Ratio 7.8 (10.0-20.0); Blood Urea Nitrogen 19 mg/dL (9-23); Carbon Dioxide 22 mmol/L (20-31); Magnesium 1.8 mg/dL (1.6-2.6); Potassium 4.8 mmol/L (3.5-5.1); Sodium 139 mmol/L (136-145)
[2024-10-27 07:01] LABS: Alanine Aminotransferase < 9 U/L (7-40); Albumin 2.7 g/dL (3.2-4.8); Aspartate Aminotransferase < 8 U/L (13-40); Calcium 7.9 mg/dL (8.7-10.4); Chloride 110 mmol/L (98-107); Glucose 113 mg/dL (74-106); Total Protein 5.6 g/dL (5.7-8.2)
[2024-10-27 07:02] LABS: Bilirubin, Total 0.2 mg/dL (0.2-1.0)
[2024-10-27 07:09] LABS: Basophils # (auto) 0 10 ^3/uL (0-0.2); Eosinophils # (auto) 0.2 10 ^3/uL (0-0.8); Hematocrit 21.3 % (36.0-46.0); Lymphocytes # (auto) 2.1 10 ^3/uL (0.4-5.4); Monocytes # (auto) 0.8 10 ^3/uL (0-1.3); Neutrophils # (auto) 2.7 10 ^3/uL (1.6-8.6); White Blood Cell 5.8 10^3/uL (4.4-10.8)
--- NOTE | 2024-10-27 07:10 | DVH ---
EXAM: XR Chest, 1 View CLINICAL INDICATION: preop TECHNIQUE: Frontal view of the chest. COMPARISON: None FINDINGS: LUNGS AND PLEURAL SPACES: Unremarkable. No consolidation. No pneumothorax. HEART: Unremarkable. No cardiomegaly. MEDIASTINUM: Unremarkable. Normal mediastinal contour. BONES/JOINTS: Unremarkable. No acute fracture. OTHER FINDINGS: . IMPRESSION: No acute cardiopulmonary process.
[2024-10-27 07:11] LABS: Basophils % (auto) 0.6 % (0.0-2.0); Eosinophils % (auto) 3.1 % (0.0-7.0); Hemoglobin 7.1 g/dL (12.2-16.2); Lymphocytes % (auto) 35.7 % (10.0-50.0); Mean Corpuscular Hemoglobin 27.4 pg (28.0-32.0); Mean Corpuscular Hgb Conc. 33.3 g/dL (32.0-36.0); Mean Corpuscular Volume 82.3 fL (80.0-100.0); Monocytes % (auto) 14.1 % (0.0-12.0); Neutrophils % (auto) 46.5 % (37.0-80.0); Nucleated Red Blood Cells % 0.3 %; Platelet Count (auto) 377 10^3/uL (140-450); Red Blood Cells 2.59 10^6/uL (4.0-5.20)
[2024-10-27] MEDS: FUROSEMIDE 20 MG TAB PO SCH (10:00)
[2024-10-27 10:41] LABS: Creatinine, Urine 58.35 mg/dL (30.0-125.0)
[2024-10-27 10:43] LABS: Urine Protein/Creatinine Ratio 8.99
[2024-10-27 10:51] LABS: Protein, Urine 524.3 mg/dL (1-14)
[2024-10-27] MEDS: BUPIVACAINE 0.5% MPF INJ 30ML SDV IJ ONE (11:37)
[2024-10-27] MEDS ORDERED: fentaNYL CITRATE 100 MCG/2 ML VL ONE (12:37)
[2024-10-27] MEDS ORDERED: MIDAZOLAM HCL 2MG/2ML 2ml VIAL (1mg/ml) ONE (12:37)
[2024-10-27] MEDS: VANCOMYCIN HCL 1000 MG VL ONE (12:46)
[2024-10-27] MEDS ORDERED: DexAMETHasone SOD PHOS 10MG/1ML VIAL INJ ONE (12:49)
[2024-10-27] MEDS ORDERED: PROPOFOL 10 MG/ML 20 ML IV ONE (12:50)
--- NOTE | 2024-10-27 13:09 | DVHPN2 ---
Tuyet Crews is a 39-year-old female with past medical history of hypertension, hyperlipidemia, diabetes type 2, right knee surgery, right foot surgery, left foot partial amputation, and who presents to the hospital with left foot ulcer with podiatry. Per podiatry she will have surgery this Friday. Patient also reports that she had pneumonia since June and was not taking medications for it. Patient states that she is allergic to Dilaudid gets hives and GI symptoms. She also reports that penicillin she has a high tolerance to which is no longer effective. Patient states that she sees a graphics production specialist, impregnating helper, and safety inspector. She denies any chest pain, shortness of breath, fever, chills, lightheadedness, weakness, dizziness, abdominal pain, nausea, vomiting, or diarrhea. Changes from previous H/P or p: No Changes Skin: Other (Left foot ulcer) Objective Vitals Vital Signs Date Time Temp Pulse Resp B/P (MAP) Pulse Ox O2 Delivery O2 Flow Rate FiO2 10/27/24 09:00 98.1 66 14 139/78 (98) 96 98.1 10/27/24 08:00 Room Air* 0 21 Intake/Output Intake and Output 10/27/24 07:00 Intake Total 1793 ml Balance 1793 ml Intake Oral 1190 ml IV Total 603 ml # Voids 4 Exam Dermatological: Skin is dry with mild erythema and some maceration around the wound site No gross deformities noted Mild non-pitting edema present bilaterally Wound: Location: Left mid foot TMA site Measures: 3 cm in length, 3 cm in width, and on cm in depth. Depth: Full thickness Base: Slough necrosis Drainage: Yes Odor: None Periwound: Yes Vascular: Dorsalis pedis and posterior tibial pulses are 1+ bilaterally Capillary refill is under 2 seconds Skin temperature is warm bilaterally Neurologic: Protective sensation is absent on the plantar forefoot bilaterally Monofilament testing reveals decreased sensation in multiple plantar sites Musculoskeletal: Range of motion at the ankle and MTP joints is within normal limits. Strength is 5/5 in all tested muscle groups. Gait is antalgic due to offloading of the affected limb. General Appearance: Alert, Oriented X3, Cooperative Extremities: No edema Medications Current Medications Medications Dose Ordered Sig/Thaddeus Route Start Time Stop Time Status Last Admin Dose Admin Acetaminophen/ Hydrocodone Bitart 1 tab Q4HP PRN PO 10/22/24 14:30 10/26/24 13:59 1 TAB Ondansetron HCl 4 mg Q4HP PRN IV 10/22/24 14:30 10/27/24 00:35 4 MG Acetaminophen 650 mg Q6HP PRN PO 10/22/24 14:30 Morphine Sulfate 2 mg Q4HPRN PRN IV 10/22/24 14:30 10/26/24 21:15 2 MG Diagnostic Test (Pha) 1 strip ACHS 10/22/24 17:00 10/27/24 11:30 1 STRIP Insulin Human Regular ACHS SC 10/22/24 17:00 10/26/24 21:11 3 UNITS Dextrose 50 ml UD PRN IV 10/22/24 14:30 Lisinopril 20 mg DAILY PO 10/23/24 10:00 10/26/24 08:53 20 MG Amlodipine Besylate 10 mg DAILY PO 10/23/24 10:00 10/26/24 08:54 10 MG Atorvastatin Calcium 40 mg HS PO 10/22/24 22:00 10/26/24 21:07 40 MG Hydralazine HCl 50 mg TID PRN PO 10/22/24 14:30 Cholecalciferol 5,000 unit DAILY PO 10/23/24 10:00 10/26/24 08:54 5,000 UNIT Magnesium Oxide 400 mg BID PO 10/26/24 22:00 10/26/24 21:07 400 MG Furosemide 20 mg DAILY PO 10/27/24 10:00 Ertapenem 1 gm/ Sodium Chloride 50 ml @ 50 mls/hr DAILY IV 10/27/24 10:00 Laboratory Results Laboratory Tests 10/27/24 05:27 Chemistry Test 10/27/24 05:27 Albumin 2.7 g/dL (3.2-4.8) L Calcium Level 7.9 mg/dL (8.7-10.4) L Magnesium Level 1.8 mg/dL (1.6-2.6) Total Protein 5.6 g/dL (5.7-8.2) L LFT Test 10/27/24 05:27 Alanine Aminotransferase (ALT) < 9 U/L (7-40) Alkaline Phosphatase 103 U/L (46-116) Aspartate Amino Transferase (AST) < 8 U/L (13-40) L Total Bilirubin 0.2 mg/dL (0.2-1.0) Urinalysis Test 10/23/24 06:30 10/27/24 00:10 Urine Hyaline Casts Few /lpf (0 - 2) Urine Yeast (Budding) Occasional /hpf (None Urine Color Light-yellow (Yellow) Urine Clarity Clear (Clear) Urine pH 6.5 (5.0-9.0) Urine Specific [place] 1.011 (1.001-1.035) Urine Protein 3+ (Negative) H Urine Ketones Negative (Negative) Urine Blood 1+ /uL (Negative) H Urine Nitrite Negative (Negative) Urine Bilirubin Negative (Negative) Urine Urobilinogen Normal mg/dL (Negative) Urine Leukocyte Esterase Negative /uL (Negative) Urine RBC 1 /hpf (0 - 4) Urine Microscopic WBC 2 /HPF (0-5) Urine Squamous Epithelial Cells Few /hpf (<5) Urine Bacteria Few /hpf (None Seen) H Urine Creatinine 58.35 mg/dL (30.0-125.0) Urine Protein/Creatinine Ratio 8.99 Urine Glucose 4+ mg/dL (Normal) H Urine Total Protein 524.3 mg/dL (1-14) H Urine Test Negative (Negative) Microbiology Microbiology Date/Time Source Procedure Growth Status 10/25/24 13:15 Foot Left Gram Stain - Final Resulted 10/25/24 13:15 Foot Left Anaerobic Culture - Preliminary Resulted 10/25/24 13:15 Foot Left Aerobic Culture - Preliminary Resulted 10/22/24 14:51 Blood Blood Culture - Preliminary NO GROWTH AFTER 72 HOURS OF INCUBATION. Resulted Assessment/Plan Assessment/Plan ASSESSMENT: Patient is a 39-year-old seen on the floor 2 day s/p from a left foot I&D PLAN: - The patients chart was reviewed, clinical findings were discussed with the patient, the etiologies of the conditions were discussed in detail, and a treatment plan was agreed to at this time, with both oral and written instructions provided. - reviewed advanced imaging - discussed plan is to perform an incision and drainage with delayed closure tomorrow - patient will be NPO at midnight - take him to the OR today - reviewed other foot and recommend that she is close up care to prevent any worsening ulceration - can weightbear as tolerated in postoperative shoe All questions were answered and concerns addressed to the patient's satisfaction. The patient was given the phone number to the clinic and was told how to make contact with the clinic should any concerns or questions arise. Patient understands that if any questions or concerns arise prior to the next appointment, we should be contacted immediately. FOLLOW-UP: Continue to follow while inpatient Plan discussed with: Patient My Orders Orders - HECTOR WRIGHT DPM Procedure Category Date Status Time Npo (Nothing By DIET 10/27/24 Transmitted Mouth) Diet Breakfast Obtain Consent For: ORDERS 10/26/24 Transmitted 13:23 Chest Portable XY 10/27/24 Resulted 04:00 Problem List: (1) Cellulitis of foot (2) Abscess of foot (3) Osteomyelitis of foot (4) Diabetic ulcer of foot associated with type 2 diabetes mellitus, with bone involvement without evidence of necrosis Date of Service: October 27, 2024 Billing Provider: HECTOR WRIGHT DPM Common Visit Codes: [id number] INP/OBS CARE(HIGH) HECTOR WRIGHT DPM October 27, 2024 13:09
--- NOTE | 2024-10-27 13:14 | DVHOP2 ---
Operative Report - 2 Report Details Date: 10/27/24 Preop Diagnosis: 1. Left foot osteomyelitis 2. Left foot abscess 3. Left foot cellulitis 4. Left foot chronic ulceration Postop Diagnosis: Same as preop Surgeon: Hector Wrihgt MD Anesthesiologist: See anesthesia Anesthesia: Mac Consent: The patient was informed of the risks and benefits of the procedure. These include but are not limited to complications of anesthesia, postoperative infection, incomplete relief of symptoms, recurrence of symptoms, damage to blood vessels, nerves and tendons, deep venous thrombosis, pulmonary embolism and possible need for repeat surgery in the future. Complications: None Estimated Blood Loss: Minimal Fluids: See anesthesia Findings: Consistent with diagnosis Indications for Surgery: Worsened the left foot wound Name of Procedure Performed 1. Left foot I&D to bone (67589) 2. Left foot delayed closure (59166) 3. Left foot tendon achilles lengthening (56730) Procedure Details Procedure Details: PRE-PROCEDURE INFORMATION: In the pre-op holding area, the extremity to be operated on was clearly marked and the patient verified correct laterality of the marking. The patient was transferred to the OR table and placed in a supine position. A timeout was performed in which identification of the correct patient, procedure, location, and materials was done. The left foot and leg were prepped and draped in normal sterile fashion. DESCRIPTION OF PROCEDURE: Attention was directed to the left where area of fluctuance was noted. An incision was made over this area and was deepened through blunt dissection. The incision was deepened to the level of abscess and bone. Care was taken to the dissection to avoid any neurovascular and tendinous structures. The incision was deepened to the bone, and the abscess appeared to be purulent fluid consistent with pus. The cortices of the bone was then removed with rongeur an all necrotic tissue. After the abscess was drained, the area was irrigated with 3 L normal saline using cysto tubing. Deep cultures were then obtained from the wound. The area was then inspected and any areas of tracking, especially along the tendons were also drained. A bone biopsy was then taken of the left 1st metatarsal which was deepened to the muscle belly and tendons. The bone was then sent to pathology to determine the extent of osteomyelitis. The wound was packed with Betadine-soaked gauze and we will need to be closed at a later date. POSTOPERATIVE INFORMATION: The patient tolerated the above noted procedure and anesthesia well and was transferred to the PACU with vital signs stable, and vascular status intact with capillary refill intact to all digits. Patient will return to the floor continue IV antibiotics. Deep cultures were taken. Bone biopsy was taken. Patient will need 6 weeks of IV antibiotics. Patient will return to the OR on Friday for possible closure. Specimen: 1st metatarsal Condition Good Disposition Still a Patient HECTOR WRIGHT DPM October 27, 2024 13:14
[2024-10-27] MEDS: ERTAPENEM SOD INJ 1 GM in SODIUM CHL 0.9% 50 ML IV SCH (14:22)
--- NOTE | 2024-10-27 16:18 | DVHPN2 ---
Subjective No new complaint Scheduled for surgery today Changes from previous H/P or p: Changes Skin: Other (Left foot ulcer) Objective Vitals Vital Signs Date Time Temp Pulse Resp B/P (MAP) Pulse Ox O2 Delivery O2 Flow Rate FiO2 10/27/24 14:28 72 14 126/74 10/27/24 14:10 94 10/27/24 13:25 Room Air 0 95 10/27/24 13:10 97.4 97.4 Intake/Output Intake and Output 10/27/24 07:00 Intake Total 1793 ml Balance 1793 ml Intake Oral 1190 ml IV Total 603 ml # Voids 4 General Appearance: Alert, Oriented X3, Cooperative Extremities: No edema Medications Current Medications Medications Dose Ordered Sig/Thaddeus Route Start Time Stop Time Status Last Admin Dose Admin Acetaminophen/ Hydrocodone Bitart 1 tab Q4HP PRN PO 10/22/24 14:30 10/26/24 13:59 1 TAB Ondansetron HCl 4 mg Q4HP PRN IV 10/22/24 14:30 10/27/24 00:35 4 MG Acetaminophen 650 mg Q6HP PRN PO 10/22/24 14:30 Morphine Sulfate 2 mg Q4HPRN PRN IV 10/22/24 14:30 10/27/24 13:58 2 MG Diagnostic Test (Pha) 1 strip ACHS 10/22/24 17:00 10/27/24 11:30 1 STRIP Insulin Human Regular ACHS SC 10/22/24 17:00 10/26/24 21:11 3 UNITS Dextrose 50 ml UD PRN IV 10/22/24 14:30 Lisinopril 20 mg DAILY PO 10/23/24 10:00 10/26/24 08:53 20 MG Amlodipine Besylate 10 mg DAILY PO 10/23/24 10:00 10/26/24 08:54 10 MG Atorvastatin Calcium 40 mg HS PO 10/22/24 22:00 10/26/24 21:07 40 MG Hydralazine HCl 50 mg TID PRN PO 10/22/24 14:30 Cholecalciferol 5,000 unit DAILY PO 10/23/24 10:00 10/26/24 08:54 5,000 UNIT Magnesium Oxide 400 mg BID PO 10/26/24 22:00 10/26/24 21:07 400 MG Furosemide 20 mg DAILY PO 10/27/24 10:00 Ertapenem 1 gm/ Sodium Chloride 50 ml @ 50 mls/hr DAILY IV 10/27/24 10:00 10/27/24 14:22 50 MLS/HR Laboratory Results Laboratory Tests 10/27/24 05:27 Chemistry Test 10/27/24 05:27 Albumin 2.7 g/dL (3.2-4.8) L Calcium Level 7.9 mg/dL (8.7-10.4) L Magnesium Level 1.8 mg/dL (1.6-2.6) Total Protein 5.6 g/dL (5.7-8.2) L LFT Test 10/27/24 05:27 Alanine Aminotransferase (ALT) < 9 U/L (7-40) Alkaline Phosphatase 103 U/L (46-116) Aspartate Amino Transferase (AST) < 8 U/L (13-40) L Total Bilirubin 0.2 mg/dL (0.2-1.0) Urinalysis Test 10/23/24 06:30 10/27/24 00:10 Urine Hyaline Casts Few /lpf (0 - 2) Urine Yeast (Budding) Occasional /hpf (None Urine Color Light-yellow (Yellow) Urine Clarity Clear (Clear) Urine pH 6.5 (5.0-9.0) Urine Specific [place] 1.011 (1.001-1.035) Urine Protein 3+ (Negative) H Urine Ketones Negative (Negative) Urine Blood 1+ /uL (Negative) H Urine Nitrite Negative (Negative) Urine Bilirubin Negative (Negative) Urine Urobilinogen Normal mg/dL (Negative) Urine Leukocyte Esterase Negative /uL (Negative) Urine RBC 1 /hpf (0 - 4) Urine Microscopic WBC 2 /HPF (0-5) Urine Squamous Epithelial Cells Few /hpf (<5) Urine Bacteria Few /hpf (None Seen) H Urine Creatinine 58.35 mg/dL (30.0-125.0) Urine Protein/Creatinine Ratio 8.99 Urine Glucose 4+ mg/dL (Normal) H Urine Total Protein 524.3 mg/dL (1-14) H Urine Test Negative (Negative) Microbiology Microbiology Date/Time Source Procedure Growth Status 10/25/24 13:15 Foot Left Gram Stain - Final Resulted 10/25/24 13:15 Foot Left Anaerobic Culture - Preliminary Resulted 10/25/24 13:15 Foot Left Aerobic Culture - Preliminary Resulted 10/22/24 14:51 Blood Blood Culture - Final NO GROWTH AFTER 5 DAYS OF INCUBATION. Complete Assessment/Plan Assessment/Plan Left foot cellulitis and nonhealing wound Hypertension Type 2 diabetes Mixed hyperlipidemia Chronic kidney disease Chronic anemia Plan IV antibiotics with clindamycin Podiatry consult Monitor the blood glucose with a sliding scale regular insulin Resume home medications Monitor closely Full code Wound culture Advance directives discussed for 16 minutes 10/24/2024: NPO after midnight for surgery tomorrow Podiatry consult is on Continue IV clindamycin Monitor the patient closely Discussed with the patient and at the bedside 10/25/2024: Surgery is for today Monitor the patient closely Continue IV clindamycin The rest of the management will depend on the hospital course 10/26/2024: 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: Continue IV clindamycin Chronic kidney disease: Consult Nephrology Anemia: Get iron studies Order a PICC line We will arrange IV antibiotics for 6 weeks once the culture from the surgical specimen is back Monitor closely and the rest of the management will depend on the hospital course Hypomagnesemia: Replace 10/27/2024: Second surgery to be done today G stain from the 1st surgery showed Gram-positive cocci in pairs Chronic anemia of chronic kidney disease Switch the antibiotics to ertapenem IV PICC line for home IV antibiotics Monitor closely Plan discussed with: Patient, Spouse My Orders Orders - PATSY DAVIDSON MD Procedure Category Date Status Time Ertapenem Sod Inj PHA 10/27/24 In Process (Invanz) 10:00 Date of Service: October 27, 2024 Billing Provider: PATSY DAVIDSON MD Common Visit Codes: [id number] INP/OBS CARE(HIGH) PATSY DAVIDSON MD October 27, 2024 16:18
--- NOTE | 2024-10-27 21:03 | DVHINCON2 ---
DATE OF CONSULTATION: 10/27/2024 CONSULTING PHYSICIAN: Dr. Rivers. REASON FOR CONSULTATION: Renal failure. HISTORY OF PRESENT ILLNESS: The patient is a 39-year-old female who is one of our chronic kidney disease patients' in the office. She was admitted to the hospital with a left foot open wound for which she has been seeing the circulating process inspector. He decided to admit her to the hospital to do a wound debridement. Upon arrival, her creatinine was elevated, currently at 2.4, so I am being consulted to evaluate and treat the kidney failure. She states that a few days prior to her hospitalization, she was not feeling well and she had some nausea, vomiting, and may not have been drinking enough fluid. REVIEW OF SYSTEMS: Otherwise unremarkable. PAST MEDICAL HISTORY: Significant for diabetes for over 20 years. She has a history of diabetic nephropathy with chronic kidney disease. We do not know what her baseline creatinine is. She has a history of anemia, hypertension, nonhealing wound ulcers, hyperlipidemia, obesity. FAMILY HISTORY: She has a strong family history of diabetes and chronic kidney disease including dialysis. SOCIAL HISTORY: She denies smoking cigarettes or drinking alcohol. MEDICATIONS: IN HOSPITAL: Medications in the hospital include clindamycin, vitamin D, amlodipine, lisinopril, atorvastatin, furosemide, insulin, hydralazine, acetaminophen, and Zofran. PHYSICAL EXAMINATION: VITAL SIGNS: Blood pressure is ____, heart rate 81, respirations 17, temperature 98.2. GENERAL: This patient is a young female who appears to be chronically ill, pale, in no acute distress. Alert and oriented x3. HEENT: Unremarkable. Oral mucosa is pale and dry. NECK: There is no jugular venous distention. LUNGS: Clear to auscultation bilaterally. CARDIOVASCULAR: Shows regular rate. There is 1/6 systolic murmur. ABDOMEN: Soft, nontender. No organomegaly. No ascites. Bowel sounds are normal in intensity and frequency. EXTREMITIES: Show no clubbing or cyanosis. There is no edema. The distal aspect of the left foot is covered in dressings. LABORATORY FINDINGS: Sodium 139, potassium 4.8, bicarbonate 22, creatinine is 2.4, GFR 25 mL per minute, glucose 115. Hemoglobin is 7.1. Urinalysis showed few red blood cells, 7 white blood cells per high-power field, few bacteria, 3+ proteinuria. ASSESSMENT AND PLAN: * Acute kidney injury superimposed on chronic kidney disease. She probably does have chronic kidney disease at least a stage 3B. * Uncontrolled diabetes. * Severe anemia, out of proportion for her kidney disease, suspect iron-deficiency on top of anemia of chronic kidney disease. * History of hypertension. * Severe proteinuria. Need to check urine protein-creatinine ratio. The plan is to get a renal ultrasound, check a urine protein-creatinine ratio, avoid the use of nephrotoxic medications. She can continue lisinopril for now. As an outpatient, we should start Farxiga or Jardiance. She should continue with outpatient followup every 3 months for management of her chronic kidney disease. Thank you for the consultation. Rei Emery MD EVT/HEM/GOD TID: [id number] RECEIPT: [id number]
[2024-10-28] VITALS (8 sets, daily range): BP systolic 135–160; BP diastolic 68–82; PULSE 72–86; RESP 16–18; TEMP 97.5–98.2; O2SAT 95–99
[2024-10-28 07:15] LABS: Anion Gap 7 (5-15); BUN/Creatinine Ratio 8.9 (10.0-20.0); Blood Urea Nitrogen 22 mg/dL (9-23); Carbon Dioxide 21 mmol/L (20-31); Magnesium 1.9 mg/dL (1.6-2.6); Total Protein 5.9 g/dL (5.7-8.2)
[2024-10-28 07:16] LABS: Alkaline Phosphatase 132 U/L (46-116); Aspartate Aminotransferase < 8 U/L (13-40); Chloride 107 mmol/L (98-107); Glucose 280 mg/dL (74-106); Potassium 5.4 mmol/L (3.5-5.1); Sodium 135 mmol/L (136-145)
[2024-10-28 07:17] LABS: Alanine Aminotransferase < 9 U/L (7-40); Albumin 2.8 g/dL (3.2-4.8); Bilirubin, Total 0.2 mg/dL (0.2-1.0)
[2024-10-28 07:34] LABS: Basophils # (auto) 0 10 ^3/uL (0-0.2); Eosinophils # (auto) 0 10 ^3/uL (0-0.8); Lymphocytes # (auto) 1.2 10 ^3/uL (0.4-5.4); Monocytes # (auto) 0.4 10 ^3/uL (0-1.3); Neutrophils # (auto) 2.6 10 ^3/uL (1.6-8.6); White Blood Cell 4.3 10^3/uL (4.4-10.8)
[2024-10-28 07:37] LABS: Basophils % (auto) 0.3 % (0.0-2.0); Hematocrit 22.2 % (36.0-46.0); Hemoglobin 7.5 g/dL (12.2-16.2); Lymphocytes % (auto) 27.7 % (10.0-50.0); Mean Corpuscular Hemoglobin 27.1 pg (28.0-32.0); Mean Corpuscular Hgb Conc. 33.8 g/dL (32.0-36.0); Mean Corpuscular Volume 80.1 fL (80.0-100.0); Monocytes % (auto) 10.3 % (0.0-12.0); Neutrophils % (auto) 61.7 % (37.0-80.0); Platelet Count (auto) 427 10^3/uL (140-450); Red Blood Cells 2.78 10^6/uL (4.0-5.20); Red Cell Distribution Width 13.7 % (11.8-14.3)
[2024-10-28] MEDS ORDERED: DAPTOmycin 300 MG in SODIUM CHL 0.9% 50 ML IV SCH (11:00)
[2024-10-28] MEDS: DOCUSATE SOD 100 MG CAP PO ONE (12:23)
[2024-10-28] MEDS: POLYETHYLENE GLYCOL 17 GM PWDR PO ONE (12:24)
--- NOTE | 2024-10-28 13:07 | DVHINCON2 ---
Date of service: October 28, [address] Huff Reason for Consultation Left foot necrotizing infection History of Present Illness Patient is a 39-year-old female presents to the hospital with left foot ulcer for which she has been seeing the profile mill operator tape control. He decided to admit her to the hospital to do a wound debridement. S/P surgery on 10/25 for left foot osteomyelitis and abscess drainage. since then she had debridement twice. OR notes says she was debrided till bone hence concerning for osteomyelitis She states that a few days prior to her hospitalization, she was not feeling well and she had some nausea, vomiting, and may not have been drinking enough fl uid. Upon arrival, her creatinine was elevated, currently at 2.47. Patient states that she is allergic to Dilaudid gets hives and GI symptoms. She also reports that penicillin UA showed blood but the patient was on her menstrual period. Wound culture showed MRSA staph aureus that is why ID consulted requesting for IV antibiotics for discharge Past Medical History Patient's Past Medical History is significant for Hypertension, hyperlipidemia and Diabetes mellitus Past Surgical History Past Surgical History: , Other (Right knee surgery, right foot surgery, and left foot partial amputation) Family History: Patient reports no known family medical history. Social History Smoke: No ALCOHOL: none Drugs: None Lives: with Family Domestic Violence: Neg Allergies: Coded Allergies: Hydromorphone (Verified Allergy, Intermediate, 10/22/24) Penicillins (Verified Allergy, Unknown, 10/22/24) Current Medications Current Medications Medications (Trade) Dose Ordered Sig/Thaddeus Route PRN Reason Start Time Stop Time Status Last Admin Docusate Sodium (Colace Capsule) 100 mg BID PO 10/28/24 22:00 Polyethylene Glycol (Miralax 17GM Powder) 17 gm DAILY PO 10/29/24 10:00 Daptomycin 300 mg/ Sodium Chloride 50 ml @ 100 mls/hr DAILY IV 10/28/24 11:00 10/28/24 12:24 DC Daptomycin / Sodium Chloride 50 ml @ 100 mls/hr Q48H IV 10/28/24 12:30 UNV Review of Systems General: No Fever, chills, night sweats or weight loss HEENT: No Sinus pain, headache, vision changes or sore throat Respiratory: No Cough, dyspnea, sputum production Cardiovascular: No Chest pain, palpitations or leg edema Gastrointestinal: No Nausea, vomiting, diarrhea, abdominal pain Genitourinary: No Dysuria, urinary frequency, hematuria, pelvic pain Skin: Positive for left foot ulcer Musculoskeletal: No Joint pain, muscle pain or swelling Neurologic: No Altered mental status, headaches or focal neurological deficits Psychiatric: No Anxiety, depression or confusion Vital Signs Vital Signs Date Time Temp Pulse Resp B/P (MAP) Pulse Ox O2 Delivery O2 Flow Rate FiO2 10/28/24 08:52 97.8 86 16 160/68 (98) 98 97.8 10/28/24 08:00 Room Air* 0 21 Physical Exam General Appearance: Alert, Oriented X3, Cooperative, No acute distress Respiratory: Normal air movement Cardiovascular: Normal S1, Normal S2 abdomen: soft and non tender. normal bowel sounds Extremities:left foot ulcer : dressing Neuro: Normal gait, Normal speech, Sensation intact Psych/Mental Status: Mental status NL, Mood NL Labs/Diagnostic Data Labs Test 10/28/24 11:10 10/28/24 05:33 10/27/24 00:10 10/26/24 06:44 Range/Units POC Glucose 162 H 70-106 mg/dl White Blood Count 4.3 #L 4.4-10.8 10^3/uL Red Blood Count 2.78 L 4.0-5.20 10^6/uL Hemoglobin 7.5 L 12.2-16.2 g/dL Hematocrit 22.2 L 36.0-46.0 % Mean Corpuscular Volume 80.1 80.0-100.0 fL Mean Corpuscular Hemoglobin 27.1 L 28.0-32.0 pg Mean Corpuscular Hemoglobin Concent 33.8 32.0-36.0 g/dL Red Cell Distribution Width 13.7 11.8-14.3 % Platelet Count 427 140-450 10^3/uL Mean Platelet Volume 7.2 6.9-10.8 fL Neutrophils (%) (Auto) 61.7 37.0-80.0 % Lymphocytes (%) (Auto) 27.7 10.0-50.0 % Monocytes (%) (Auto) 10.3 0.0-12.0 % Eosinophils (%) (Auto) 0.0 0.0-7.0 % Basophils (%) (Auto) 0.3 0.0-2.0 % Neutrophils # (Auto) 2.6 1.6-8.6 10 ^3/uL Lymphocytes # (Auto) 1.2 0.4-5.4 10 ^3/uL Monocytes # (Auto) 0.4 0-1.3 10 ^3/uL Eosinophils # (Auto) 0 0-0.8 10 ^3/uL Basophils # (Auto) 0 0-0.2 10 ^3/uL Nucleated Red Blood Cells 0.0 % Sodium Level 135 L 136-145 mmol/L Potassium Level 5.4 H 3.5-5.1 mmol/L Chloride Level 107 98-107 mmol/L Carbon Dioxide Level 21 20-31 mmol/L Anion Gap 7 5-15 Blood Urea Nitrogen 22 9-23 mg/dL Creatinine 2.47 H 0.550-1.02 mg/dL Glomerular Filtration Rate Calc 25 >90 mL/min BUN/Creatinine Ratio 8.9 L 10.0-20.0 Serum Glucose 280 H 74-106 mg/dL Calcium Level 8.0 L 8.7-10.4 mg/dL Magnesium Level 1.9 1.6-2.6 mg/dL Total Bilirubin 0.2 0.2-1.0 mg/dL Aspartate Amino Transferase (AST) < 8 L 13-40 U/L Alanine Aminotransferase (ALT) < 9 7-40 U/L Alkaline Phosphatase 132 H 46-116 U/L Total Protein 5.9 5.7-8.2 g/dL Albumin 2.8 L 3.2-4.8 g/dL Urine Color Light-yellow Yellow Urine Clarity Clear Clear Urine pH 6.5 5.0-9.0 Urine Specific [place] 1.011 1.001-1.035 Urine Protein 3+ H Negative Urine Ketones Negative Negative Urine Blood 1+ H Negative /uL Urine Nitrite Negative Negative Urine Bilirubin Negative Negative Urine Urobilinogen Normal Negative mg/dL Urine Leukocyte Esterase Negative Negative /uL Urine RBC 1 0 - 4 /hpf Urine Microscopic WBC 2 0-5 /HPF Urine Squamous Epithelial Cells Few <5 /hpf Urine Bacteria Few H None Seen /hpf Urine Creatinine 58.35 30.0-125.0 mg/dL Urine Protein/Creatinine Ratio 8.99 Urine Glucose 4+ H Normal mg/dL Urine Total Protein 524.3 H 1-14 mg/dL Urine Test Negative Negative Iron Level 31 L 50-170 ug/dL Total Iron Binding Capacity 212 L 250-425 ug/dL Percent Iron Saturation 14.6 L 15-50 % Test 10/25/24 05:30 10/24/24 23:53 10/23/24 06:30 10/22/24 14:57 Range/Units Prothrombin Time 10.1 9.3-11.8 sec Prothrombin Time INR 0.95 0.9-1.15 Activated Partial Thromboplast Time < 20.0 L 24.5-34.5 SEC Beta HCG, Quantitative 0.9 L 1.5-4.2 mIU/mL Urine Hyaline Casts Few 0 - 2 /lpf Urine Yeast (Budding) Occasional None Seen /hpf Urine Opiates Screen Neg NEGATIVE Urine Fentanyl Screen Neg NEGATIVE Urine Barbiturates Screen Neg NEGATIVE Urine Phencyclidine Screen Neg NEGATIVE Urine Amphetamines Screen Neg NEGATIVE Urine Benzodiazepines Screen Neg NEGATIVE Urine Cocaine Screen Neg NEGATIVE Urine Cannabinoids Screen Neg NEGATIVE Hemoglobin A1c 8.1 H <5.7 % A1C Test 10/22/24 14:45 Range/Units Erythrocyte Sedimentation Rate 124 H 0-20 mm/hr Lactic Acid Level 0.4 0.4-2.0 mmol/L C-Reactive Protein High Sensitivity 2.06 H <1.0 mg/dL Microbiology Date/Time Source Procedure Growth Status 10/25/24 13:15 Foot Left Gram Stain - Final Resulted 10/25/24 13:15 Foot Left Anaerobic Culture - Preliminary Resulted 10/25/24 13:15 Aerobic Culture - Final Methicillin Resistant S.aureus Streptococcus Group B Resulted 10/22/24 14:51 Blood Blood Culture - Final NO GROWTH AFTER 5 DAYS OF INCUBATION. Complete Assessment Patient is a 39-year-old Female presents to the hospital with: Left foot necrotizing infection Left foot osteomyelitis Left foot abscess MRSA infection Group B streptococcus infection NEHA on CKD DM Recommendations On IV Daptomycin reviewed OP notes reviewed labs/ cultures patient already has had two surgeries, s/p I and D and debridement. OR cx grew MRSA/ group B strep due to CKD, Dr Tate prefers if no Picc line if possible to preserve her veins. There is emerging data of Dalbavacin use for MRSA infection. hence will order sw consult for Dalbavancin 750mg first dose followed by 350mg in 1 week. ( It is long acting approx equivalent to 6 weeks IV ) follow up with podiatry as oupt HH continue wound care follow up with PCP in 2 weeks and get CBC/ cmp plan discussed with Dr Huff/ case management prognosis of foot guarded thank you for consult Plan discussed with: MAREK Fisher MD October 28, 2024 13:07
--- NOTE | 2024-10-28 13:11 | DVHPN2 ---
Tuyet Crews is a 39-year-old female with past medical history of hypertension, hyperlipidemia, diabetes type 2, right knee surgery, right foot surgery, left foot partial amputation, and who presents to the hospital with left foot ulcer with podiatry. Per podiatry she will have surgery this Friday. Patient also reports that she had pneumonia since June and was not taking medications for it. Patient states that she is allergic to Dilaudid gets hives and GI symptoms. She also reports that penicillin she has a high tolerance to which is no longer effective. Patient states that she sees a christmas tree contractor, railroad operating engineer, and health safety engineer. She denies any chest pain, shortness of breath, fever, chills, lightheadedness, weakness, dizziness, abdominal pain, nausea, vomiting, or diarrhea. Changes from previous H/P or p: No Changes Skin: Other (Left foot ulcer) Objective Vitals Vital Signs Date Time Temp Pulse Resp B/P (MAP) Pulse Ox O2 Delivery O2 Flow Rate FiO2 10/28/24 08:52 97.8 86 16 160/68 (98) 98 97.8 10/28/24 08:00 Room Air* 0 21 Intake/Output Intake and Output 10/28/24 07:00 Intake Total 1990 ml Balance 1990 ml Intake Oral 1790 ml IV Total 200 ml # Voids 3 Exam Dermatological: Skin is dry with mild erythema and some maceration around the wound site No gross deformities noted Mild non-pitting edema present bilaterally Wound: Location: Left mid foot TMA site Measures: 3 cm in length, 3 cm in width, and on cm in depth. Depth: Full thickness Base: Slough necrosis Drainage: Yes Odor: None Periwound: Yes Vascular: Dorsalis pedis and posterior tibial pulses are 1+ bilaterally Capillary refill is under 2 seconds Skin temperature is warm bilaterally Neurologic: Protective sensation is absent on the plantar forefoot bilaterally Monofilament testing reveals decreased sensation in multiple plantar sites Musculoskeletal: Range of motion at the ankle and MTP joints is within normal limits. Strength is 5/5 in all tested muscle groups. Gait is antalgic due to offloading of the affected limb. General Appearance: Alert, Oriented X3, Cooperative Extremities: No edema Medications Current Medications Medications Dose Ordered Sig/Thaddeus Route Start Time Stop Time Status Last Admin Dose Admin Acetaminophen/ Hydrocodone Bitart 1 tab Q4HP PRN PO 5/9/25 14:30 10/27/24 19:46 1 TAB Ondansetron HCl 4 mg Q4HP PRN IV 10/22/24 14:30 10/28/24 12:24 4 MG Acetaminophen 650 mg Q6HP PRN PO 10/22/24 14:30 Morphine Sulfate 2 mg Q4HPRN PRN IV 10/22/24 14:30 10/28/24 08:04 2 MG Diagnostic Test (Pha) 1 strip ACHS 10/22/24 17:00 10/28/24 11:32 1 STRIP Insulin Human Regular ACHS SC 10/22/24 17:00 10/28/24 12:31 3 UNITS Dextrose 50 ml UD PRN IV 10/22/24 14:30 Lisinopril 20 mg DAILY PO 10/23/24 10:00 10/28/24 08:06 20 MG Amlodipine Besylate 10 mg DAILY PO 10/23/24 10:00 10/28/24 08:08 10 MG Atorvastatin Calcium 40 mg HS PO 10/22/24 22:00 10/27/24 21:58 40 MG Hydralazine HCl 50 mg TID PRN PO 10/22/24 14:30 Cholecalciferol 5,000 unit DAILY PO 10/23/24 10:00 10/28/24 08:07 5,000 UNIT Magnesium Oxide 400 mg BID PO 10/26/24 22:00 10/28/24 08:06 400 MG Furosemide 20 mg DAILY PO 10/27/24 10:00 10/28/24 08:08 20 MG Docusate Sodium 100 mg BID PO 10/28/24 22:00 Polyethylene Glycol 17 gm DAILY PO 10/29/24 10:00 Daptomycin / Sodium Chloride 50 ml @ 100 mls/hr Q48H IV 10/28/24 12:30 UNV Laboratory Results Laboratory Tests 10/28/24 05:33 Chemistry Test 10/28/24 05:33 Albumin 2.8 g/dL (3.2-4.8) L Calcium Level 8.0 mg/dL (8.7-10.4) L Magnesium Level 1.9 mg/dL (1.6-2.6) Total Protein 5.9 g/dL (5.7-8.2) LFT Test 10/28/24 05:33 Alanine Aminotransferase (ALT) < 9 U/L (7-40) Alkaline Phosphatase 132 U/L (46-116) H Aspartate Amino Transferase (AST) < 8 U/L (13-40) L Total Bilirubin 0.2 mg/dL (0.2-1.0) Urinalysis Test 10/23/24 06:30 10/27/24 00:10 Urine Hyaline Casts Few /lpf (0 - 2) Urine Yeast (Budding) Occasional /hpf (None Urine Color Light-yellow (Yellow) Urine Clarity Clear (Clear) Urine pH 6.5 (5.0-9.0) Urine Specific [place] 1.011 (1.001-1.035) Urine Protein 3+ (Negative) H Urine Ketones Negative (Negative) Urine Blood 1+ /uL (Negative) H Urine Nitrite Negative (Negative) Urine Bilirubin Negative (Negative) Urine Urobilinogen Normal mg/dL (Negative) Urine Leukocyte Esterase Negative /uL (Negative) Urine RBC 1 /hpf (0 - 4) Urine Microscopic WBC 2 /HPF (0-5) Urine Squamous Epithelial Cells Few /hpf (<5) Urine Bacteria Few /hpf (None Seen) H Urine Creatinine 58.35 mg/dL (30.0-125.0) Urine Protein/Creatinine Ratio 8.99 Urine Glucose 4+ mg/dL (Normal) H Urine Total Protein 524.3 mg/dL (1-14) H Urine Test Negative (Negative) Microbiology Microbiology Date/Time Source Procedure Growth Status 10/25/24 13:15 Foot Left Gram Stain - Final Resulted 10/25/24 13:15 Foot Left Anaerobic Culture - Preliminary Resulted 10/25/24 13:15 Aerobic Culture - Final Methicillin Resistant S.aureus Streptococcus Group B Resulted 10/22/24 14:51 Blood Blood Culture - Final NO GROWTH AFTER 5 DAYS OF INCUBATION. Complete Assessment/Plan Assessment/Plan ASSESSMENT: Patient is a 39-year-old seen on the floor 1 day s/p from a left foot I&D and delayed closure PLAN: - The patients chart was reviewed, clinical findings were discussed with the patient, the etiologies of the conditions were discussed in detail, and a treatment plan was agreed to at this time, with both oral and written instructions provided. - reviewed advanced imaging - discussed with the patient that surgery went well - patient should be nonweightbearing to left lower extremity - patient will need a PICC line for 6 weeks IV antibiotics - patient will need care to change the dressing every other day when she gets home with Betadine-soaked gauze Kerlix Brody - patient should follow up with me on Friday after discharge All questions were answered and concerns addressed to the patient's satisfaction. The patient was given the phone number to the clinic and was told how to make contact with the clinic should any concerns or questions arise. Patient understands that if any questions or concerns arise prior to the next appointment, we should be contacted immediately. FOLLOW-UP: Continue to follow while inpatient Plan discussed with: Patient My Orders Orders - HECTOR WRIGHT DPM Procedure Category Date Status Time Cardiac DIET 10/27/24 Transmitted Diet-2gna,Lofat,Lochol Dinner Weight-Bearing JASKARAN 10/27/24 In Process Restrictions 14:59 Problem List: (1) Cellulitis of foot (2) Abscess of foot (3) Osteomyelitis of foot (4) Diabetic ulcer of foot associated with type 2 diabetes mellitus, with bone involvement without evidence of necrosis Date of Service: October 28, 2024 Billing Provider: HECTOR WRIGHT DPM Common Visit Codes: [id number] INP/OBS CARE(HIGH) HECTOR WRIGHT DPM October 28, 2024 13:11
--- NOTE | 2024-10-28 13:58 | DVHPN2 ---
Progress Note - Dictate Date Seen: October 28, 2024 Has the PT tested + for MRSA If YES, has PT been informed?: No Medical Necessity Reason Pt with a Central, PICC or Fol: No Subjective No new complaints vital signs Vital Sign Date Time Temp Pulse Resp B/P (MAP) Pulse Ox O2 Delivery O2 Flow Rate FiO2 10/28/24 13:00 97.5 77 16 155/79 (104) 96 97.5 10/28/24 08:00 Room Air* 0 21 Total Intake and Output 10/27/24 10/27/24 10/28/24 15:00 23:00 07:00 Intake Total 150 ml 990 ml 850 ml Balance 150 ml 990 ml 850 ml medications Current Medications Medications Dose Ordered Sig/Thaddeus Route Start Time Stop Time Status Last Admin Dose Admin Acetaminophen/ Hydrocodone Bitart 1 tab Q4HP PRN PO 10/22/24 14:30 10/27/24 19:46 1 TAB Ondansetron HCl 4 mg Q4HP PRN IV 10/22/24 14:30 10/28/24 12:24 4 MG Acetaminophen 650 mg Q6HP PRN PO 10/22/24 14:30 Morphine Sulfate 2 mg Q4HPRN PRN IV 10/22/24 14:30 10/28/24 08:04 2 MG Diagnostic Test (Pha) 1 strip ACHS 10/22/24 17:00 10/28/24 11:32 1 STRIP Insulin Human Regular ACHS SC 10/22/24 17:00 10/28/24 12:31 3 UNITS Dextrose 50 ml UD PRN IV 10/22/24 14:30 Lisinopril 20 mg DAILY PO 10/23/24 10:00 10/28/24 08:06 20 MG Amlodipine Besylate 10 mg DAILY PO 10/23/24 10:00 10/28/24 08:08 10 MG Atorvastatin Calcium 40 mg HS PO 10/22/24 22:00 10/27/24 21:58 40 MG Hydralazine HCl 50 mg TID PRN PO 10/22/24 14:30 Cholecalciferol 5,000 unit DAILY PO 10/23/24 10:00 10/28/24 08:07 5,000 UNIT Magnesium Oxide 400 mg BID PO 10/26/24 22:00 10/28/24 08:06 400 MG Furosemide 20 mg DAILY PO 10/27/24 10:00 10/28/24 08:08 20 MG Docusate Sodium 100 mg BID PO 10/28/24 22:00 Polyethylene Glycol 17 gm DAILY PO 10/29/24 10:00 Daptomycin 450 mg/ Sodium Chloride 50 ml @ 100 mls/hr Q48H IV 10/28/24 14:00 objective Alert and oriented x 3 NAD Lungs CTA CV: RR, no pericardial rub Abdomen: soft, NT Left foot cellulitis laboratory and microbiology Laboratory Tests 10/28/24 05:33 Test 10/28/24 05:33 Range/Units Serum Glucose 280 H 74-106 mg/dL Problem List 1. CKD4 2. NEHA 3. Diabetic nephropathy 4. Proteinuria 5. Diabetic foot infection OK to place PICC line for outpatient antibiotics Will start SGLT2i and follow as outpatient Dietary Evaluation Review Comments: CCHO-45 diet, consider Maged supplementation for wounds if GFR improves Expected Outcomes/Goals: controlled DM and healed wounds. Plan discussed with: Patient POOL TOBAR MD October 28, 2024 13:58
--- NOTE | 2024-10-28 14:15 | DVHPN2 ---
Subjective Wound culture showed MRSA staph aureus Patient will need IV antibiotics Changes from previous H/P or p: Changes Skin: Other (Left foot ulcer) Objective Vitals Vital Signs Date Time Temp Pulse Resp B/P (MAP) Pulse Ox O2 Delivery O2 Flow Rate FiO2 10/28/24 13:00 97.5 77 16 155/79 (104) 96 97.5 10/28/24 08:00 Room Air* 0 21 Intake/Output Intake and Output 10/28/24 07:00 Intake Total 1990 ml Balance 1990 ml Intake Oral 1790 ml IV Total 200 ml # Voids 3 General Appearance: Alert, Oriented X3, Cooperative Extremities: No edema Medications Current Medications Medications Dose Ordered Sig/Thaddeus Route Start Time Stop Time Status Last Admin Dose Admin Acetaminophen/ Hydrocodone Bitart 1 tab Q4HP PRN PO 10/22/24 14:30 10/27/24 19:46 1 TAB Ondansetron HCl 4 mg Q4HP PRN IV 10/22/24 14:30 10/28/24 12:24 4 MG Acetaminophen 650 mg Q6HP PRN PO 10/22/24 14:30 Morphine Sulfate 2 mg Q4HPRN PRN IV 10/22/24 14:30 10/28/24 08:04 2 MG Diagnostic Test (Pha) 1 strip ACHS 10/22/24 17:00 10/28/24 11:32 1 STRIP Insulin Human Regular ACHS SC 10/22/24 17:00 10/28/24 12:31 3 UNITS Dextrose 50 ml UD PRN IV 10/22/24 14:30 Lisinopril 20 mg DAILY PO 10/23/24 10:00 10/28/24 08:06 20 MG Amlodipine Besylate 10 mg DAILY PO 10/23/24 10:00 10/28/24 08:08 10 MG Atorvastatin Calcium 40 mg HS PO 10/22/24 22:00 10/27/24 21:58 40 MG Hydralazine HCl 50 mg TID PRN PO 10/22/24 14:30 Cholecalciferol 5,000 unit DAILY PO 10/23/24 10:00 10/28/24 08:07 5,000 UNIT Magnesium Oxide 400 mg BID PO 10/26/24 22:00 10/28/24 08:06 400 MG Furosemide 20 mg DAILY PO 10/27/24 10:00 10/28/24 08:08 20 MG Docusate Sodium 100 mg BID PO 10/28/24 22:00 Polyethylene Glycol 17 gm DAILY PO 10/29/24 10:00 Daptomycin 450 mg/ Sodium Chloride 50 ml @ 100 mls/hr Q48H IV 10/28/24 14:00 Laboratory Results Laboratory Tests 10/28/24 05:33 Chemistry Test 10/28/24 05:33 Albumin 2.8 g/dL (3.2-4.8) L Calcium Level 8.0 mg/dL (8.7-10.4) L Magnesium Level 1.9 mg/dL (1.6-2.6) Total Protein 5.9 g/dL (5.7-8.2) LFT Test 10/28/24 05:33 Alanine Aminotransferase (ALT) < 9 U/L (7-40) Alkaline Phosphatase 132 U/L (46-116) H Aspartate Amino Transferase (AST) < 8 U/L (13-40) L Total Bilirubin 0.2 mg/dL (0.2-1.0) Urinalysis Test 10/23/24 06:30 10/27/24 00:10 Urine Hyaline Casts Few /lpf (0 - 2) Urine Yeast (Budding) Occasional /hpf (None Urine Color Light-yellow (Yellow) Urine Clarity Clear (Clear) Urine pH 6.5 (5.0-9.0) Urine Specific [place] 1.011 (1.001-1.035) Urine Protein 3+ (Negative) H Urine Ketones Negative (Negative) Urine Blood 1+ /uL (Negative) H Urine Nitrite Negative (Negative) Urine Bilirubin Negative (Negative) Urine Urobilinogen Normal mg/dL (Negative) Urine Leukocyte Esterase Negative /uL (Negative) Urine RBC 1 /hpf (0 - 4) Urine Microscopic WBC 2 /HPF (0-5) Urine Squamous Epithelial Cells Few /hpf (<5) Urine Bacteria Few /hpf (None Seen) H Urine Creatinine 58.35 mg/dL (30.0-125.0) Urine Protein/Creatinine Ratio 8.99 Urine Glucose 4+ mg/dL (Normal) H Urine Total Protein 524.3 mg/dL (1-14) H Urine Test Negative (Negative) Microbiology Microbiology Date/Time Source Procedure Growth Status 10/25/24 13:15 Foot Left Gram Stain - Final Resulted 10/25/24 13:15 Foot Left Anaerobic Culture - Preliminary Resulted 10/25/24 13:15 Aerobic Culture - Final Methicillin Resistant S.aureus Streptococcus Group B Resulted 10/22/24 14:51 Blood Blood Culture - Final NO GROWTH AFTER 5 DAYS OF INCUBATION. Complete Assessment/Plan Assessment/Plan Left foot cellulitis and nonhealing wound Hypertension Type 2 diabetes Mixed hyperlipidemia Chronic kidney disease Chronic anemia Plan IV antibiotics with clindamycin Podiatry consult Monitor the blood glucose with a sliding scale regular insulin Resume home medications Monitor closely Full code Wound culture Advance directives discussed for 16 minutes 10/24/2024: NPO after midnight for surgery tomorrow Podiatry consult is on Continue IV clindamycin Monitor the patient closely Discussed with the patient and at the bedside 10/25/2024: Surgery is for today Monitor the patient closely Continue IV clindamycin The rest of the management will depend on the hospital course 10/26/2024: 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: Continue IV clindamycin Chronic kidney disease: Consult Nephrology Anemia: Get iron studies Order a PICC line We will arrange IV antibiotics for 6 weeks once the culture from the surgical specimen is back Monitor closely and the rest of the management will depend on the hospital course Hypomagnesemia: Replace 10/27/2024: Second surgery to be done today G stain from the 1st surgery showed Gram-positive cocci in pairs Chronic anemia of chronic kidney disease Switch the antibiotics to ertapenem IV PICC line for home IV antibiotics Monitor closely 10/28/2024: IV daptomycin while in the hospital Consult infectious disease Dr. Parkinson recommended for the patient to get outpatient dalbavancin which is given in 2 doses IV by home health with out a PICC line Anemia: Hemoglobin stable at 7.5 Chronic kidney disease: Stable with a creatinine of 2.4, potassium 5.4, GFR of 25 Plan discussed with: Patient, Spouse My Orders Orders - PATSY DAVIDSON MD Procedure Category Date Status Time Communication Order ORDERS 10/27/24 Transmitted 17:35 Docusate Sodium PHA 10/28/24 In Process Capsule (Colace 22:00 Polyethylene Glycol PHA 10/29/24 In Process 17g Powder (Miralax 10:00 * Dietary Consult CONS 10/28/24 Transmitted 10:44 * Infectious [place]- CONS 10/28/24 Transmitted Iggy 10:46 Daptomycin (Cubicin) PHA 10/28/24 In Process 14:00 Date of Service: October 28, 2024 Billing Provider: PATSY DAVIDSON MD Common Visit Codes: [id number] INP/OBS CARE(HIGH) PATSY DAVIDSON MD October 28, 2024 14:15
[2024-10-28] MEDS: SODIUM CHL 0.9% IV SCH (14:55)
[2024-10-28] MEDS: DAPTOMYCIN IV SCH (14:55)
[2024-10-28] MEDS: DOCUSATE SOD 100 MG CAP PO SCH (21:23)
[2024-10-29] VITALS (7 sets, daily range): BP systolic 111–160; BP diastolic 56–86; PULSE 73–90; RESP 18; TEMP 97.6–98.1; O2SAT 95–100
[2024-10-29] MEDS: POLYETHYLENE GLYCOL 17 GM PWDR PO SCH (09:02)
--- NOTE | 2024-10-29 10:22 | DVHPN2 ---
Progress Note - Dictate Date Seen: October 29, 2024 Has the PT tested + for MRSA If YES, has PT been informed?: No Medical Necessity Reason Pt with a Central, PICC or Fol: No Subjective No new complaints vital signs Vital Sign Date Time Temp Pulse Resp B/P (MAP) Pulse Ox O2 Delivery O2 Flow Rate FiO2 10/29/24 09:07 82 18 160/78 10/29/24 08:00 97.8 95 97.8 10/28/24 20:00 Room Air* 0 21 Total Intake and Output 10/28/24 10/28/24 10/29/24 15:00 23:00 07:00 Intake Total 50 ml 1050 ml 400 ml Balance 50 ml 1050 ml 400 ml medications Current Medications Medications Dose Ordered Sig/Thaddeus Route Start Time Stop Time Status Last Admin Dose Admin Acetaminophen/ Hydrocodone Bitart 1 tab Q4HP PRN PO 10/22/24 14:30 10/27/24 19:46 1 TAB Ondansetron HCl 4 mg Q4HP PRN IV 10/22/24 14:30 10/28/24 12:24 4 MG Acetaminophen 650 mg Q6HP PRN PO 10/22/24 14:30 Morphine Sulfate 2 mg Q4HPRN PRN IV 10/22/24 14:30 10/29/24 09:07 2 MG Diagnostic Test (Pha) 1 strip ACHS 10/22/24 17:00 10/29/24 06:08 1 STRIP Insulin Human Regular ACHS SC 10/22/24 17:00 10/29/24 06:08 4 UNITS Dextrose 50 ml UD PRN IV 10/22/24 14:30 Lisinopril 20 mg DAILY PO 10/23/24 10:00 10/29/24 09:01 20 MG Amlodipine Besylate 10 mg DAILY PO 10/23/24 10:00 10/29/24 09:01 10 MG Atorvastatin Calcium 40 mg HS PO 10/22/24 22:00 10/28/24 21:23 40 MG Hydralazine HCl 50 mg TID PRN PO 10/22/24 14:30 Cholecalciferol 5,000 unit DAILY PO 10/23/24 10:00 10/29/24 08:52 5,000 UNIT Magnesium Oxide 400 mg BID PO 10/26/24 22:00 10/29/24 08:52 400 MG Furosemide 20 mg DAILY PO 10/27/24 10:00 10/29/24 09:01 20 MG Docusate Sodium 100 mg BID PO 10/28/24 22:00 10/29/24 08:52 100 MG Polyethylene Glycol 17 gm DAILY PO 10/29/24 10:00 10/29/24 09:02 17 GM Daptomycin 450 mg/ Sodium Chloride 50 ml @ 100 mls/hr Q48H IV 10/28/24 14:00 10/28/24 14:55 100 MLS/HR objective Alert and oriented x 3 NAD Lungs CTA CV: RR, no pericardial rub Abdomen: soft, NT Left foot cellulitis laboratory and microbiology Laboratory Tests 10/28/24 05:33 Test 10/28/24 05:33 Range/Units Serum Glucose 280 H 74-106 mg/dL Problem List 1. CKD4, GFR is stable, acceptable urine output 2. NEHA resolved 3. Diabetic nephropathy 4. Proteinuria 5. Diabetic foot infection OK to place PICC line for outpatient antibiotics Will start SGLT2i and follow as outpatient Dietary Evaluation Review Comments: CCHO-45 diet, consider Maged supplementation for wounds if GFR improves Expected Outcomes/Goals: controlled DM and healed wounds. Plan discussed with: Patient POOL TOBAR MD October 29, 2024 10:22
--- NOTE | 2024-10-29 11:52 | DVHPN2 ---
Progress Note - Dictate Date Seen: October 29, 2024 Has the PT tested + for MRSA If YES, has PT been informed?: No Medical Necessity Reason Pt with a Central, PICC or Fol: No Subjective No new acute complaints noted. vital signs Vital Sign Date Time Temp Pulse Resp B/P (MAP) Pulse Ox O2 Delivery O2 Flow Rate FiO2 10/29/24 09:07 82 18 160/78 10/29/24 08:00 97.8 95 97.8 10/28/24 20:00 Room Air* 0 21 Total Intake and Output 10/28/24 10/28/24 10/29/24 15:00 23:00 07:00 Intake Total 50 ml 1050 ml 400 ml Balance 50 ml 1050 ml 400 ml medications Current Medications Medications Dose Ordered Sig/Thaddeus Route Start Time Stop Time Status Last Admin Dose Admin Acetaminophen/ Hydrocodone Bitart 1 tab Q4HP PRN PO 10/22/24 14:30 10/27/24 19:46 1 TAB Ondansetron HCl 4 mg Q4HP PRN IV 10/22/24 14:30 10/28/24 12:24 4 MG Acetaminophen 650 mg Q6HP PRN PO 10/22/24 14:30 Morphine Sulfate 2 mg Q4HPRN PRN IV 10/22/24 14:30 10/29/24 09:07 2 MG Diagnostic Test (Pha) 1 strip ACHS 10/22/24 17:00 10/29/24 06:08 1 STRIP Insulin Human Regular ACHS SC 10/22/24 17:00 10/29/24 06:08 4 UNITS Dextrose 50 ml UD PRN IV 10/22/24 14:30 Lisinopril 20 mg DAILY PO 10/23/24 10:00 10/29/24 09:01 20 MG Amlodipine Besylate 10 mg DAILY PO 10/23/24 10:00 10/29/24 09:01 10 MG Atorvastatin Calcium 40 mg HS PO 10/22/24 22:00 10/28/24 21:23 40 MG Hydralazine HCl 50 mg TID PRN PO 10/22/24 14:30 Cholecalciferol 5,000 unit DAILY PO 10/23/24 10:00 10/29/24 08:52 5,000 UNIT Magnesium Oxide 400 mg BID PO 10/26/24 22:00 10/29/24 08:52 400 MG Furosemide 20 mg DAILY PO 10/27/24 10:00 10/29/24 09:01 20 MG Docusate Sodium 100 mg BID PO 10/28/24 22:00 10/29/24 08:52 100 MG Polyethylene Glycol 17 gm DAILY PO 10/29/24 10:00 10/29/24 09:02 17 GM Daptomycin 450 mg/ Sodium Chloride 50 ml @ 100 mls/hr Q48H IV 10/28/24 14:00 10/28/24 14:55 100 MLS/HR objective Wound on left mid foot. Skin is dry with mild erythema and some maceration around the wound site No gross deformities noted Mild non-pitting edema present bilaterally laboratory and microbiology Laboratory Tests 10/28/24 05:33 Test 10/28/24 05:33 Range/Units Serum Glucose 280 H 74-106 mg/dL Assessment/Plan Patient is a 39-year-old Female presents to the hospital with: Left foot necrotizing infection Left foot osteomyelitis Left foot abscess MRSA infection Group B streptococcus infection CKD DM Recommendations On IV Daptomycin patient already has had two surgeries, s/p I and D and debridement. OR cx grew MRSA/ group B strep There is emerging data of Dalbavacin use for MRSA infection. hence will order consult for Dalbavancin 750mg first dose followed by 350mg in 1 week. ( It is long acting approx equivalent to 6 weeks IV ) It is being arranged via [facility]. According to CM notes, patient will be here till Friday and Friday, she will get infusion at infusion center arrange for wound care Antibiotic Status: Daptomycin IV [Started on 10/28 - Ongoing] follow up with podiatry as oupt continue wound care follow up with PCP in 2 weeks and get CBC/ cmp plan discussed with Dr Huff/ case management Prognosis of foot guarded Thank you for consult Dietary Evaluation Review Comments: CCHO-45 diet, consider Maged supplementation for wounds if GFR improves Expected Outcomes/Goals: controlled DM and healed wounds. Plan discussed with: Patient MAREK MCCLELLAN MD October 29, 2024 11:52
--- NOTE | 2024-10-29 16:23 | DVHPN2 ---
Subjective No new complaints Changes from previous H/P or p: Changes Skin: Other (Left foot ulcer) Objective Vitals Vital Signs Date Time Temp Pulse Resp B/P (MAP) Pulse Ox O2 Delivery O2 Flow Rate FiO2 10/29/24 11:34 79 18 152/86 10/29/24 08:00 Room Air* 0 21 10/29/24 08:00 97.8 95 97.8 Intake/Output Intake and Output 10/29/24 07:00 Intake Total 1500 ml Balance 1500 ml Intake Oral 1400 ml IV Total 100 ml # Voids 4 General Appearance: Alert, Oriented X3, Cooperative Extremities: No edema Medications Current Medications Medications Dose Ordered Sig/Thaddeus Route Start Time Stop Time Status Last Admin Dose Admin Acetaminophen/ Hydrocodone Bitart 1 tab Q4HP PRN PO 10/22/24 14:30 10/27/24 19:46 1 TAB Ondansetron HCl 4 mg Q4HP PRN IV 10/22/24 14:30 10/28/24 12:24 4 MG Acetaminophen 650 mg Q6HP PRN PO 10/22/24 14:30 Morphine Sulfate 2 mg Q4HPRN PRN IV 10/22/24 14:30 10/29/24 09:07 2 MG Diagnostic Test (Pha) 1 strip ACHS 10/22/24 17:00 10/29/24 13:41 1 STRIP Insulin Human Regular ACHS SC 10/22/24 17:00 10/29/24 13:42 2 UNITS Dextrose 50 ml UD PRN IV 10/22/24 14:30 Lisinopril 20 mg DAILY PO 10/23/24 10:00 10/29/24 09:01 20 MG Amlodipine Besylate 10 mg DAILY PO 10/23/24 10:00 10/29/24 09:01 10 MG Atorvastatin Calcium 40 mg HS PO 10/22/24 22:00 10/28/24 21:23 40 MG Hydralazine HCl 50 mg TID PRN PO 10/22/24 14:30 Cholecalciferol 5,000 unit DAILY PO 10/23/24 10:00 10/29/24 08:52 5,000 UNIT Magnesium Oxide 400 mg BID PO 10/26/24 22:00 10/29/24 08:52 400 MG Furosemide 20 mg DAILY PO 10/27/24 10:00 10/29/24 09:01 20 MG Docusate Sodium 100 mg BID PO 10/28/24 22:00 10/29/24 08:52 100 MG Polyethylene Glycol 17 gm DAILY PO 10/29/24 10:00 10/29/24 09:02 17 GM Daptomycin 450 mg/ Sodium Chloride 50 ml @ 100 mls/hr Q48H IV 10/28/24 14:00 10/28/24 14:55 100 MLS/HR Laboratory Results Laboratory Tests 10/28/24 05:33 Urinalysis Test 10/23/24 06:30 10/27/24 00:10 Urine Hyaline Casts Few /lpf (0 - 2) Urine Yeast (Budding) Occasional /hpf (None Urine Color Light-yellow (Yellow) Urine Clarity Clear (Clear) Urine pH 6.5 (5.0-9.0) Urine Specific [place] 1.011 (1.001-1.035) Urine Protein 3+ (Negative) H Urine Ketones Negative (Negative) Urine Blood 1+ /uL (Negative) H Urine Nitrite Negative (Negative) Urine Bilirubin Negative (Negative) Urine Urobilinogen Normal mg/dL (Negative) Urine Leukocyte Esterase Negative /uL (Negative) Urine RBC 1 /hpf (0 - 4) Urine Microscopic WBC 2 /HPF (0-5) Urine Squamous Epithelial Cells Few /hpf (<5) Urine Bacteria Few /hpf (None Seen) H Urine Creatinine 58.35 mg/dL (30.0-125.0) Urine Protein/Creatinine Ratio 8.99 Urine Glucose 4+ mg/dL (Normal) H Urine Total Protein 524.3 mg/dL (1-14) H Urine Test Negative (Negative) Microbiology Microbiology Date/Time Source Procedure Growth Status 10/25/24 13:15 Foot Left Gram Stain - Final Resulted 10/25/24 13:15 Foot Left Anaerobic Culture - Preliminary Resulted 10/25/24 13:15 Aerobic Culture - Final Methicillin Resistant S.aureus Streptococcus Group B Resulted 10/22/24 14:51 Blood Blood Culture - Final NO GROWTH AFTER 5 DAYS OF INCUBATION. Complete Assessment/Plan Assessment/Plan Left foot cellulitis and nonhealing wound Hypertension Type 2 diabetes Mixed hyperlipidemia Chronic kidney disease Chronic anemia Plan IV antibiotics with clindamycin Podiatry consult Monitor the blood glucose with a sliding scale regular insulin Resume home medications Monitor closely Full code Wound culture Advance directives discussed for 16 minutes 10/24/2024: NPO after midnight for surgery tomorrow Podiatry consult is on Continue IV clindamycin Monitor the patient closely Discussed with the patient and at the bedside 10/25/2024: Surgery is for today Monitor the patient closely Continue IV clindamycin The rest of the management will depend on the hospital course 10/26/2024: 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: Continue IV clindamycin Chronic kidney disease: Consult Nephrology Anemia: Get iron studies Order a PICC line We will arrange IV antibiotics for 6 weeks once the culture from the surgical specimen is back Monitor closely and the rest of the management will depend on the hospital course Hypomagnesemia: Replace 10/27/2024: Second surgery to be done today G stain from the 1st surgery showed Gram-positive cocci in pairs Chronic anemia of chronic kidney disease Switch the antibiotics to ertapenem IV PICC line for home IV antibiotics Monitor closely 10/28/2024: IV daptomycin while in the hospital Consult infectious disease Dr. Parkinson recommended for the patient to get outpatient dalbavancin which is given in 2 doses IV by home health with out a PICC line Anemia: Hemoglobin stable at 7.5 Chronic kidney disease: Stable with a creatinine of 2.4, potassium 5.4, GFR of 25 10/29/24: Continue daptomycin in the hospital Dalbavancin as outpatient starting Friday Wound care Discharge planning for Friday Plan discussed with: Patient, Spouse Date of Service: October 29, 2024 Billing Provider: PATSY DAVIDSON MD Common Visit Codes: [id number] INP/OBS CARE(MOD) PATSY DAVIDSON MD October 29, 2024 16:23
[2024-10-30] VITALS (7 sets, daily range): BP systolic 124–172; BP diastolic 64–76; PULSE 77–93; RESP 15–20; TEMP 97.9–98.3; O2SAT 94–99
--- NOTE | 2024-10-30 09:27 | DVHPN2 ---
Progress Note - Dictate Date Seen: October 30, 2024 Has the PT tested + for MRSA If YES, has PT been informed?: No Medical Necessity Reason Pt with a Central, PICC or Fol: No Subjective No new complaints vital signs Vital Sign Date Time Temp Pulse Resp B/P (MAP) Pulse Ox O2 Delivery O2 Flow Rate FiO2 10/30/24 08:39 98.3 82 15 146/68 (94) 95 98.3 10/29/24 20:00 Room Air* 0 21 Total Intake and Output 10/29/24 10/29/24 10/30/24 15:00 23:00 07:00 Intake Total 1000 ml 350 ml Balance 1000 ml 350 ml medications Current Medications Medications Dose Ordered Sig/Thaddeus Route Start Time Stop Time Status Last Admin Dose Admin Acetaminophen/ Hydrocodone Bitart 1 tab Q4HP PRN PO 10/22/24 14:30 10/27/24 19:46 1 TAB Ondansetron HCl 4 mg Q4HP PRN IV 10/22/24 14:30 10/28/24 12:24 4 MG Acetaminophen 650 mg Q6HP PRN PO 10/22/24 14:30 Morphine Sulfate 2 mg Q4HPRN PRN IV 10/22/24 14:30 10/29/24 22:45 2 MG Diagnostic Test (Pha) 1 strip ACHS 10/22/24 17:00 10/30/24 06:01 1 STRIP Insulin Human Regular ACHS SC 10/22/24 17:00 10/29/24 22:46 3 UNITS Dextrose 50 ml UD PRN IV 10/22/24 14:30 Lisinopril 20 mg DAILY PO 10/23/24 10:00 10/29/24 09:01 20 MG Amlodipine Besylate 10 mg DAILY PO 10/23/24 10:00 10/29/24 09:01 10 MG Atorvastatin Calcium 40 mg HS PO 10/22/24 22:00 10/29/24 22:40 40 MG Hydralazine HCl 50 mg TID PRN PO 10/22/24 14:30 Cholecalciferol 5,000 unit DAILY PO 10/23/24 10:00 10/29/24 08:52 5,000 UNIT Magnesium Oxide 400 mg BID PO 10/26/24 22:00 10/29/24 22:40 400 MG Furosemide 20 mg DAILY PO 10/27/24 10:00 10/29/24 09:01 20 MG Docusate Sodium 100 mg BID PO 10/28/24 22:00 10/29/24 22:40 100 MG Polyethylene Glycol 17 gm DAILY PO 10/29/24 10:00 10/29/24 09:02 17 GM Daptomycin 450 mg/ Sodium Chloride 50 ml @ 100 mls/hr Q48H IV 10/28/24 14:00 10/28/24 14:55 100 MLS/HR objective Alert and oriented x 3 NAD Lungs CTA CV: RR, no pericardial rub Abdomen: soft, NT Left foot cellulitis laboratory and microbiology Laboratory Tests 10/28/24 05:33 Test 10/28/24 05:33 Range/Units Serum Glucose 280 H 74-106 mg/dL Problem List 1. CKD4, GFR is stable, acceptable urine output 2. NEHA resolved 3. Diabetic nephropathy 4. Proteinuria 5. Diabetic foot infection OK to place PICC line for outpatient antibiotics Will start SGLT2i and follow as outpatient Dietary Evaluation Review Comments: CCHO-45 diet, consider Maged supplementation for wounds if GFR improves Expected Outcomes/Goals: controlled DM and healed wounds. Plan discussed with: Patient POOL TOBAR MD October 30, 2024 09:27
--- NOTE | 2024-10-30 17:26 | DVHPN2 ---
Subjective I had a lengthy discussion with the patient and her at the bedside regarding her IV antibiotics that she will receive as an outpatient They said that they do not have a car and therefore do not have a way to go from home to come to the infusion clinic to get the antibiotics on Friday They are requesting to talk to the social work administrator again because transportation we will need to be arranged through her insurance to come for the infusion Changes from previous H/P or p: Changes Skin: Other (Left foot ulcer) Objective Vitals Vital Signs Date Time Temp Pulse Resp B/P (MAP) Pulse Ox O2 Delivery O2 Flow Rate FiO2 10/30/24 16:19 97.9 93 17 172/76 (108) 98 97.9 10/30/24 08:00 Room Air* 0 21 Intake/Output Intake and Output 10/30/24 06:59 Intake Total 1350 ml Balance 1350 ml Intake Oral 1350 ml # Voids 3 # Bowel Movements 1 General Appearance: Alert, Oriented X3, Cooperative Extremities: No edema Medications Current Medications Medications Dose Ordered Sig/Thaddeus Route Start Time Stop Time Status Last Admin Dose Admin Acetaminophen/ Hydrocodone Bitart 1 tab Q4HP PRN PO 10/22/24 14:30 10/27/24 19:46 1 TAB Ondansetron HCl 4 mg Q4HP PRN IV 10/22/24 14:30 10/28/24 12:24 4 MG Acetaminophen 650 mg Q6HP PRN PO 10/22/24 14:30 Morphine Sulfate 2 mg Q4HPRN PRN IV 10/22/24 14:30 10/30/24 16:06 2 MG Diagnostic Test (Pha) 1 strip ACHS 10/22/24 17:00 10/30/24 11:28 1 STRIP Insulin Human Regular ACHS SC 10/22/24 17:00 10/30/24 11:35 3 UNITS Dextrose 50 ml UD PRN IV 10/22/24 14:30 Lisinopril 20 mg DAILY PO 10/23/24 10:00 10/30/24 09:23 20 MG Amlodipine Besylate 10 mg DAILY PO 10/23/24 10:00 10/30/24 09:22 10 MG Atorvastatin Calcium 40 mg HS PO 10/22/24 22:00 10/29/24 22:40 40 MG Hydralazine HCl 50 mg TID PRN PO 10/22/24 14:30 Cholecalciferol 5,000 unit DAILY PO 10/23/24 10:00 10/30/24 09:23 5,000 UNIT Magnesium Oxide 400 mg BID PO 10/26/24 22:00 10/30/24 09:22 400 MG Furosemide 20 mg DAILY PO 10/27/24 10:00 10/30/24 09:21 20 MG Docusate Sodium 100 mg BID PO 10/28/24 22:00 10/30/24 09:22 100 MG Polyethylene Glycol 17 gm DAILY PO 10/29/24 10:00 10/29/24 09:02 17 GM Daptomycin 450 mg/ Sodium Chloride 50 ml @ 100 mls/hr Q48H IV 10/28/24 14:00 10/30/24 15:22 100 MLS/HR Laboratory Results Laboratory Tests 10/28/24 05:33 Urinalysis Test 10/23/24 06:30 10/27/24 00:10 Urine Hyaline Casts Few /lpf (0 - 2) Urine Yeast (Budding) Occasional /hpf (None Urine Color Light-yellow (Yellow) Urine Clarity Clear (Clear) Urine pH 6.5 (5.0-9.0) Urine Specific [place] 1.011 (1.001-1.035) Urine Protein 3+ (Negative) H Urine Ketones Negative (Negative) Urine Blood 1+ /uL (Negative) H Urine Nitrite Negative (Negative) Urine Bilirubin Negative (Negative) Urine Urobilinogen Normal mg/dL (Negative) Urine Leukocyte Esterase Negative /uL (Negative) Urine RBC 1 /hpf (0 - 4) Urine Microscopic WBC 2 /HPF (0-5) Urine Squamous Epithelial Cells Few /hpf (<5) Urine Bacteria Few /hpf (None Seen) H Urine Creatinine 58.35 mg/dL (30.0-125.0) Urine Protein/Creatinine Ratio 8.99 Urine Glucose 4+ mg/dL (Normal) H Urine Total Protein 524.3 mg/dL (1-14) H Urine Test Negative (Negative) Microbiology Microbiology Date/Time Source Procedure Growth Status 10/25/24 13:15 Foot Left Gram Stain - Final Complete 10/25/24 13:15 Foot Left Anaerobic Culture - Final Complete 10/25/24 13:15 Aerobic Culture - Final Methicillin Resistant S.aureus Streptococcus Group B Complete 10/22/24 14:51 Blood Blood Culture - Final NO GROWTH AFTER 5 DAYS OF INCUBATION. Complete Assessment/Plan Assessment/Plan Left foot cellulitis and nonhealing wound Hypertension Type 2 diabetes Mixed hyperlipidemia Chronic kidney disease Chronic anemia Plan IV antibiotics with clindamycin Podiatry consult Monitor the blood glucose with a sliding scale regular insulin Resume home medications Monitor closely Full code Wound culture Advance directives discussed for 16 minutes 10/24/2024: NPO after midnight for surgery tomorrow Podiatry consult is on Continue IV clindamycin Monitor the patient closely Discussed with the patient and at the bedside 10/25/2024: Surgery is for today Monitor the patient closely Continue IV clindamycin The rest of the management will depend on the hospital course 10/26/2024: 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: Continue IV clindamycin Chronic kidney disease: Consult Nephrology Anemia: Get iron studies Order a PICC line We will arrange IV antibiotics for 6 weeks once the culture from the surgical specimen is back Monitor closely and the rest of the management will depend on the hospital course Hypomagnesemia: Replace 10/27/2024: Second surgery to be done today G stain from the 1st surgery showed Gram-positive cocci in pairs Chronic anemia of chronic kidney disease Switch the antibiotics to ertapenem IV PICC line for home IV antibiotics Monitor closely 10/28/2024: IV daptomycin while in the hospital Consult infectious disease Dr. Parkinson recommended for the patient to get outpatient dalbavancin which is given in 2 doses IV by home health with out a PICC line Anemia: Hemoglobin stable at 7.5 Chronic kidney disease: Stable with a creatinine of 2.4, potassium 5.4, GFR of 25 10/29/24: Continue daptomycin in the hospital Dalbavancin as outpatient starting Friday Wound care Discharge planning for Friday10/30/2024: Consult the social work administrator to arrange transportation from the patient's home to the infusion clinic so she can have her IV antibiotic as an outpatient since the patient does not have transportation and does not have a car to bring her to the clinic Continue daptomycin IV as soon as the patient is here Discharge planning Plan discussed with: Patient My Orders Orders - PATSY DAVIDSON MD Procedure Category Date Status Time Creatinine LAB 10/31/24 Verified 05:00 Date of Service: October 30, 2024 Billing Provider: PATSY DAVIDSON MD Common Visit Codes: [id number] INP/OBS CARE(MOD) PATSY DAVIDSON MD October 30, 2024 17:26
[2024-10-31] VITALS (7 sets, daily range): BP systolic 148–178; BP diastolic 67–91; PULSE 82–95; RESP 18–20; TEMP 97.6–98.6; O2SAT 96–100
[2024-10-31] MEDS: hydrALAZINE HCL 25 MG TAB PO PRN (00:20)
--- NOTE | 2024-10-31 12:49 | DVHPN2 ---
Subjective Awaiting the social work lecturer consult to figure out the antibiotics that she needs Changes from previous H/P or p: No Changes Skin: Other (Left foot ulcer) Objective Vitals Vital Signs Date Time Temp Pulse Resp B/P (MAP) Pulse Ox O2 Delivery O2 Flow Rate FiO2 10/31/24 12:09 173/83 10/31/24 12:09 85 20 10/31/24 08:15 Room Air* 0 21 10/31/24 08:00 98.0 100 98.0 Intake/Output Intake and Output 10/31/24 07:00 Intake Total 1250 ml Output Total 400 ml Balance 850 ml Intake Oral 1200 ml IV Total 50 ml Output Urine Total 400 ml # Voids 2 General Appearance: Alert, Oriented X3, Cooperative Extremities: No edema Medications Current Medications Medications Dose Ordered Sig/Thaddeus Route Start Time Stop Time Status Last Admin Dose Admin Acetaminophen/ Hydrocodone Bitart 1 tab Q4HP PRN PO 10/22/24 14:30 10/27/24 19:46 1 TAB Ondansetron HCl 4 mg Q4HP PRN IV 10/22/24 14:30 10/28/24 12:24 4 MG Acetaminophen 650 mg Q6HP PRN PO 10/22/24 14:30 Morphine Sulfate 2 mg Q4HPRN PRN IV 10/22/24 14:30 10/31/24 12:09 2 MG Diagnostic Test (Pha) 1 strip ACHS 10/22/24 17:00 10/31/24 11:30 1 STRIP Insulin Human Regular ACHS SC 10/22/24 17:00 10/31/24 12:31 3 UNITS Dextrose 50 ml UD PRN IV 10/22/24 14:30 Lisinopril 20 mg DAILY PO 10/23/24 10:00 10/31/24 12:08 20 MG Amlodipine Besylate 10 mg DAILY PO 10/23/24 10:00 10/31/24 12:08 10 MG Atorvastatin Calcium 40 mg HS PO 10/22/24 22:00 10/30/24 22:00 40 MG Hydralazine HCl 50 mg TID PRN PO 10/22/24 14:30 10/31/24 00:20 50 MG Cholecalciferol 5,000 unit DAILY PO 10/23/24 10:00 10/31/24 12:07 5,000 UNIT Magnesium Oxide 400 mg BID PO 10/26/24 22:00 10/31/24 12:08 400 MG Furosemide 20 mg DAILY PO 10/27/24 10:00 10/31/24 12:09 20 MG Docusate Sodium 100 mg BID PO 10/28/24 22:00 10/31/24 12:07 100 MG Polyethylene Glycol 17 gm DAILY PO 10/29/24 10:00 10/31/24 12:09 17 GM Daptomycin 450 mg/ Sodium Chloride 50 ml @ 100 mls/hr Q48H IV 10/28/24 14:00 10/30/24 15:22 100 MLS/HR Laboratory Results Laboratory Tests 10/28/24 05:33 10/31/24 05:33 Urinalysis Test 10/23/24 06:30 10/27/24 00:10 Urine Hyaline Casts Few /lpf (0 - 2) Urine Yeast (Budding) Occasional /hpf (None Urine Color Light-yellow (Yellow) Urine Clarity Clear (Clear) Urine pH 6.5 (5.0-9.0) Urine Specific [place] 1.011 (1.001-1.035) Urine Protein 3+ (Negative) H Urine Ketones Negative (Negative) Urine Blood 1+ /uL (Negative) H Urine Nitrite Negative (Negative) Urine Bilirubin Negative (Negative) Urine Urobilinogen Normal mg/dL (Negative) Urine Leukocyte Esterase Negative /uL (Negative) Urine RBC 1 /hpf (0 - 4) Urine Microscopic WBC 2 /HPF (0-5) Urine Squamous Epithelial Cells Few /hpf (<5) Urine Bacteria Few /hpf (None Seen) H Urine Creatinine 58.35 mg/dL (30.0-125.0) Urine Protein/Creatinine Ratio 8.99 Urine Glucose 4+ mg/dL (Normal) H Urine Total Protein 524.3 mg/dL (1-14) H Urine Test Negative (Negative) Microbiology Microbiology Date/Time Source Procedure Growth Status 10/25/24 13:15 Foot Left Gram Stain - Final Complete 10/25/24 13:15 Foot Left Anaerobic Culture - Final Complete 10/25/24 13:15 Aerobic Culture - Final Methicillin Resistant S.aureus Streptococcus Group B Complete 10/22/24 14:51 Blood Blood Culture - Final NO GROWTH AFTER 5 DAYS OF INCUBATION. Complete Assessment/Plan Assessment/Plan Left foot cellulitis and nonhealing wound Hypertension Type 2 diabetes Mixed hyperlipidemia Chronic kidney disease Chronic anemia Plan IV antibiotics with clindamycin Podiatry consult Monitor the blood glucose with a sliding scale regular insulin Resume home medications Monitor closely Full code Wound culture Advance directives discussed for 16 minutes 10/24/2024: NPO after midnight for surgery tomorrow Podiatry consult is on Continue IV clindamycin Monitor the patient closely Discussed with the patient and at the bedside 10/25/2024: Surgery is for today Monitor the patient closely Continue IV clindamycin The rest of the management will depend on the hospital course 10/26/2024: 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: Continue IV clindamycin Chronic kidney disease: Consult Nephrology Anemia: Get iron studies Order a PICC line We will arrange IV antibiotics for 6 weeks once the culture from the surgical specimen is back Monitor closely and the rest of the management will depend on the hospital course Hypomagnesemia: Replace 10/27/2024: Second surgery to be done today G stain from the 1st surgery showed Gram-positive cocci in pairs Chronic anemia of chronic kidney disease Switch the antibiotics to ertapenem IV PICC line for home IV antibiotics Monitor closely 10/28/2024: IV daptomycin while in the hospital Consult infectious disease Dr. Parkinson recommended for the patient to get outpatient dalbavancin which is given in 2 doses IV by home health with out a PICC line Anemia: Hemoglobin stable at 7.5 Chronic kidney disease: Stable with a creatinine of 2.4, potassium 5.4, GFR of 25 10/29/24: Continue daptomycin in the hospital Dalbavancin as outpatient starting Friday Wound care Discharge planning for Friday10/30/2024: Consult the manager social to arrange transportation from the patient's home to the infusion clinic so she can have her IV antibiotic as an outpatient since the patient does not have transportation and does not have a car to bring her to the clinic Continue daptomycin IV as soon as the patient is here Discharge planning 10/31/2024: Continue current management pending arrangements for the IV antibiotics Plan discussed with: Patient My Orders Orders - PATSY DAVIDSON MD Procedure Category Date Status Time * Vault Attendant CONS 10/30/24 Transmitted Consult Date of Service: October 31, 2024 Billing Provider: PATSY DAVIDSON MD Common Visit Codes: [id number] INP/OBS CARE(MOD) PATSY DAVIDSON MD October 31, 2024 12:49
--- NOTE | 2024-10-31 13:00 | DVHPN2 ---
Progress Note - Dictate Date Seen: October 31, 2024 Has the PT tested + for MRSA If YES, has PT been informed?: No Medical Necessity Reason Pt with a Central, PICC or Fol: No Subjective no new symptoms vital signs Vital Sign Date Time Temp Pulse Resp B/P (MAP) Pulse Ox O2 Delivery O2 Flow Rate FiO2 10/31/24 12:09 173/83 10/31/24 12:09 85 20 10/31/24 08:15 Room Air* 0 21 10/31/24 08:00 98.0 100 98.0 Total Intake and Output 10/30/24 10/30/24 10/31/24 15:00 23:00 07:00 Intake Total 850 ml 400 ml Output Total 400 ml Balance 450 ml 400 ml medications Current Medications Medications Dose Ordered Sig/Thaddeus Route Start Time Stop Time Status Last Admin Dose Admin Acetaminophen/ Hydrocodone Bitart 1 tab Q4HP PRN PO 10/22/24 14:30 10/27/24 19:46 1 TAB Ondansetron HCl 4 mg Q4HP PRN IV 10/22/24 14:30 10/28/24 12:24 4 MG Acetaminophen 650 mg Q6HP PRN PO 10/22/24 14:30 Morphine Sulfate 2 mg Q4HPRN PRN IV 10/22/24 14:30 10/31/24 12:09 2 MG Diagnostic Test (Pha) 1 strip ACHS 10/22/24 17:00 10/31/24 11:30 1 STRIP Insulin Human Regular ACHS SC 10/22/24 17:00 10/31/24 12:31 3 UNITS Dextrose 50 ml UD PRN IV 10/22/24 14:30 Lisinopril 20 mg DAILY PO 10/23/24 10:00 10/31/24 12:08 20 MG Amlodipine Besylate 10 mg DAILY PO 10/23/24 10:00 10/31/24 12:08 10 MG Atorvastatin Calcium 40 mg HS PO 10/22/24 22:00 10/30/24 22:00 40 MG Hydralazine HCl 50 mg TID PRN PO 10/22/24 14:30 10/31/24 00:20 50 MG Cholecalciferol 5,000 unit DAILY PO 10/23/24 10:00 10/31/24 12:07 5,000 UNIT Magnesium Oxide 400 mg BID PO 10/26/24 22:00 10/31/24 12:08 400 MG Furosemide 20 mg DAILY PO 10/27/24 10:00 10/31/24 12:09 20 MG Docusate Sodium 100 mg BID PO 10/28/24 22:00 10/31/24 12:07 100 MG Polyethylene Glycol 17 gm DAILY PO 10/29/24 10:00 10/31/24 12:09 17 GM Daptomycin 450 mg/ Sodium Chloride 50 ml @ 100 mls/hr Q48H IV 10/28/24 14:00 10/30/24 15:22 100 MLS/HR objective Alert and oriented x 3 HEENT: NC,AT NAD Lungs CTA CV: RR, no pericardial rub Abdomen: soft, NT Neuro: AAOx3 laboratory and microbiology Laboratory Tests 10/31/24 05:33 10/28/24 05:33 Test 10/28/24 05:33 Range/Units Serum Glucose 280 H 74-106 mg/dL Assessment/Plan Assessment: 1. CKD4, GFR is stable, acceptable urine output 2. NEHA resolved 3. Diabetic nephropathy 4. Proteinuria 5. Diabetic foot infection Plan: OK to place PICC line for outpatient antibiotics. currently on Daptomycin continue Lasix 20 mg PO daily Will start SGLT2i and follow as outpatient strict I&OS will need close outpatient follow up Dietary Evaluation Review Comments: CCHO-45 diet, consider Maged supplementation for wounds if GFR improves Expected Outcomes/Goals: controlled DM and healed wounds. Plan discussed with: Patient GARY MCKINNON MD October 31, 2024 13:00
[2024-10-31] MEDS: HYDROcodone-ACET 5/325MG TAB PO PRN (23:00)
[2024-11-01] VITALS (7 sets, daily range): BP systolic 118–160; BP diastolic 59–77; PULSE 80–95; RESP 16–19; TEMP 97.4–98.2; O2SAT 94–99
[2024-11-01] MEDS: MORPHINE SULFATE INJ 2 MG/ml SYRG IV ONE (00:06)
[2024-11-01] MEDS: HYDROcodone-ACET 5/325MG TAB PO ONE (05:03)
--- NOTE | 2024-11-01 10:13 | DVHPN2 ---
Subjective No new complaints Changes from previous H/P or p: Changes Skin: Other (Left foot ulcer) Objective Vitals Vital Signs Date Time Temp Pulse Resp B/P (MAP) Pulse Ox O2 Delivery O2 Flow Rate FiO2 11/01/24 08:32 98.1 80 18 141/73 (95) 97 98.1 11/01/24 07:49 Room Air* 0 21 Intake/Output Intake and Output 11/01/24 06:59 Intake Total 1730 ml Balance 1730 ml Intake Oral 1730 ml # Voids 8 # Bowel Movements 2 General Appearance: Alert, Oriented X3, Cooperative Extremities: No edema Medications Current Medications Medications Dose Ordered Sig/Thaddeus Route Start Time Stop Time Status Last Admin Dose Admin Ondansetron HCl 4 mg Q4HP PRN IV 10/22/24 14:30 10/28/24 12:24 4 MG Acetaminophen 650 mg Q6HP PRN PO 10/22/24 14:30 Diagnostic Test (Pha) 1 strip ACHS 10/22/24 17:00 11/01/24 06:26 1 STRIP Insulin Human Regular ACHS SC 10/22/24 17:00 11/01/24 06:32 4 UNITS Dextrose 50 ml UD PRN IV 10/22/24 14:30 Lisinopril 20 mg DAILY PO 10/23/24 10:00 11/01/24 08:20 20 MG Amlodipine Besylate 10 mg DAILY PO 10/23/24 10:00 11/01/24 08:19 10 MG Atorvastatin Calcium 40 mg HS PO 10/22/24 22:00 10/31/24 22:59 40 MG Hydralazine HCl 50 mg TID PRN PO 10/22/24 14:30 10/31/24 00:20 50 MG Cholecalciferol 5,000 unit DAILY PO 10/23/24 10:00 11/01/24 08:19 5,000 UNIT Magnesium Oxide 400 mg BID PO 10/26/24 22:00 11/01/24 08:18 400 MG Furosemide 20 mg DAILY PO 10/27/24 10:00 11/01/24 08:18 20 MG Docusate Sodium 100 mg BID PO 10/28/24 22:00 11/01/24 08:18 100 MG Polyethylene Glycol 17 gm DAILY PO 10/29/24 10:00 11/01/24 08:18 17 GM Daptomycin 450 mg/ Sodium Chloride 50 ml @ 100 mls/hr Q48H IV 10/28/24 14:00 10/30/24 15:22 100 MLS/HR Acetaminophen/ Hydrocodone Bitart 1 tab Q8HPRN PRN PO 10/31/24 22:30 10/31/24 23:00 1 TAB Laboratory Results Laboratory Tests 10/28/24 05:33 10/31/24 05:33 Urinalysis Test 10/23/24 06:30 10/27/24 00:10 Urine Hyaline Casts Few /lpf (0 - 2) Urine Yeast (Budding) Occasional /hpf (None Urine Color Light-yellow (Yellow) Urine Clarity Clear (Clear) Urine pH 6.5 (5.0-9.0) Urine Specific [place] 1.011 (1.001-1.035) Urine Protein 3+ (Negative) H Urine Ketones Negative (Negative) Urine Blood 1+ /uL (Negative) H Urine Nitrite Negative (Negative) Urine Bilirubin Negative (Negative) Urine Urobilinogen Normal mg/dL (Negative) Urine Leukocyte Esterase Negative /uL (Negative) Urine RBC 1 /hpf (0 - 4) Urine Microscopic WBC 2 /HPF (0-5) Urine Squamous Epithelial Cells Few /hpf (<5) Urine Bacteria Few /hpf (None Seen) H Urine Creatinine 58.35 mg/dL (30.0-125.0) Urine Protein/Creatinine Ratio 8.99 Urine Glucose 4+ mg/dL (Normal) H Urine Total Protein 524.3 mg/dL (1-14) H Urine Test Negative (Negative) Microbiology Microbiology Date/Time Source Procedure Growth Status 10/25/24 13:15 Foot Left Gram Stain - Final Complete 10/25/24 13:15 Foot Left Anaerobic Culture - Final Complete 10/25/24 13:15 Aerobic Culture - Final Methicillin Resistant S.aureus Streptococcus Group B Complete 10/22/24 14:51 Blood Blood Culture - Final NO GROWTH AFTER 5 DAYS OF INCUBATION. Complete Assessment/Plan Assessment/Plan Left foot cellulitis and nonhealing wound Hypertension Type 2 diabetes Mixed hyperlipidemia Chronic kidney disease Chronic anemia Plan IV antibiotics with clindamycin Podiatry consult Monitor the blood glucose with a sliding scale regular insulin Resume home medications Monitor closely Full code Wound culture Advance directives discussed for 16 minutes 10/24/2024: NPO after midnight for surgery tomorrow Podiatry consult is on Continue IV clindamycin Monitor the patient closely Discussed with the patient and at the bedside 10/25/2024: Surgery is for today Monitor the patient closely Continue IV clindamycin The rest of the management will depend on the hospital course 10/26/2024: 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: Continue IV clindamycin Chronic kidney disease: Consult Nephrology Anemia: Get iron studies Order a PICC line We will arrange IV antibiotics for 6 weeks once the culture from the surgical specimen is back Monitor closely and the rest of the management will depend on the hospital course Hypomagnesemia: Replace 10/27/2024: Second surgery to be done today G stain from the 1st surgery showed Gram-positive cocci in pairs Chronic anemia of chronic kidney disease Switch the antibiotics to ertapenem IV PICC line for home IV antibiotics Monitor closely 10/28/2024: IV daptomycin while in the hospital Consult infectious disease Dr. Parkinson recommended for the patient to get outpatient dalbavancin which is given in 2 doses IV by home health with out a PICC line Anemia: Hemoglobin stable at 7.5 Chronic kidney disease: Stable with a creatinine of 2.4, potassium 5.4, GFR of 25 10/29/24: Continue daptomycin in the hospital Dalbavancin as outpatient starting Friday Wound care Discharge planning for Friday10/30/2024: Consult the social director to arrange transportation from the patient's home to the infusion clinic so she can have her IV antibiotic as an outpatient since the patient does not have transportation and does not have a car to bring her to the clinic Continue daptomycin IV as soon as the patient is here Discharge planning 10/31/2024: Continue current management pending arrangements for the IV antibiotics 11/01/2024: Continue daptomycin IV for now The patient wants to discuss her options with the social workers regarding her IV antibiotics whether she wants to do IV daptomycin at home with home health for 6 weeks versus dalbavancin x2 doses without a PICC line but with the option she would need transportation arranged to go to the infusion clinic Plan discussed with: Patient, Spouse Date of Service: November 01, 2024 Billing Provider: PATSY DAVIDSON MD Common Visit Codes: [id number] INP/OBS CARE(HIGH) PATSY DAVIDSON MD November 01, 2024 10:13
--- NOTE | 2024-11-01 14:47 | DVHPN2 ---
Progress Note - Dictate Date Seen: November 01, 2024 Has the PT tested + for MRSA If YES, has PT been informed?: No Medical Necessity Reason Pt with a Central, PICC or Fol: No Subjective no new symptoms vital signs Vital Sign Date Time Temp Pulse Resp B/P (MAP) Pulse Ox O2 Delivery O2 Flow Rate FiO2 11/01/24 13:00 97.7 94 17 160/69 (99) 95 97.7 11/01/24 07:49 Room Air* 0 21 Total Intake and Output 10/31/24 10/31/24 11/01/24 15:00 23:00 07:00 Intake Total 1180 ml 550 ml Balance 1180 ml 550 ml medications Current Medications Medications Dose Ordered Sig/Thaddeus Route Start Time Stop Time Status Last Admin Dose Admin Ondansetron HCl 4 mg Q4HP PRN IV 10/22/24 14:30 10/28/24 12:24 4 MG Acetaminophen 650 mg Q6HP PRN PO 10/22/24 14:30 Diagnostic Test (Pha) 1 strip ACHS 10/22/24 17:00 11/01/24 11:30 1 STRIP Insulin Human Regular ACHS SC 10/22/24 17:00 11/01/24 12:16 4 UNITS Dextrose 50 ml UD PRN IV 10/22/24 14:30 Lisinopril 20 mg DAILY PO 10/23/24 10:00 11/01/24 08:20 20 MG Amlodipine Besylate 10 mg DAILY PO 10/23/24 10:00 11/01/24 08:19 10 MG Atorvastatin Calcium 40 mg HS PO 10/22/24 22:00 10/31/24 22:59 40 MG Hydralazine HCl 50 mg TID PRN PO 10/22/24 14:30 11/01/24 12:25 50 MG Cholecalciferol 5,000 unit DAILY PO 10/23/24 10:00 11/01/24 08:19 5,000 UNIT Magnesium Oxide 400 mg BID PO 10/26/24 22:00 11/01/24 08:18 400 MG Furosemide 20 mg DAILY PO 10/27/24 10:00 11/01/24 08:18 20 MG Docusate Sodium 100 mg BID PO 10/28/24 22:00 11/01/24 08:18 100 MG Polyethylene Glycol 17 gm DAILY PO 10/29/24 10:00 11/01/24 08:18 17 GM Daptomycin 450 mg/ Sodium Chloride 50 ml @ 100 mls/hr Q48H IV 10/28/24 14:00 10/30/24 15:22 100 MLS/HR Acetaminophen/ Hydrocodone Bitart 1 tab Q6HPRN PRN PO 11/01/24 14:45 UNV objective Alert and oriented x 3 HEENT: NC,AT NAD Lungs CTA CV: RR, no pericardial rub Abdomen: soft, NT Neuro: AAOx3 laboratory and microbiology Laboratory Tests 10/31/24 05:33 10/28/24 05:33 Test 10/28/24 05:33 Range/Units Serum Glucose 280 H 74-106 mg/dL Assessment/Plan Assessment: 1. CKD4, GFR is stable, acceptable urine output 2. NEHA resolved 3. Diabetic nephropathy 4. Proteinuria 5. Diabetic foot infection Plan: OK to place PICC line for outpatient antibiotics. currently on Daptomycin. but will likely be changed to Dalbavancin (2 doses) to avoid PICC line placement continue Lasix 20 mg PO daily Will start SGLT2i and follow as outpatient strict I&OS will need close outpatient follow up Dietary Evaluation Review Comments[facility], consider Maged supplementation for wounds if GFR improves Expected Outcomes/Goals: controlled DM and healed wounds. Plan discussed with: Patient GARY MCKINNON MD November 01, 2024 14:47
[2024-11-01] MEDS: HYDROcodone-ACET 5/325MG TAB PO PRN (21:33)
[2024-11-02] VITALS (7 sets, daily range): BP systolic 111–166; BP diastolic 54–89; PULSE 88–99; RESP 16–20; TEMP 97.6–98.2; O2SAT 93–97
[2024-11-02 05:34] LABS: Basophils # (auto) 0 10 ^3/uL (0-0.2); Eosinophils # (auto) 0.2 10 ^3/uL (0-0.8); Hemoglobin 7.5 g/dL (12.2-16.2); Lymphocytes # (auto) 3.1 10 ^3/uL (0.4-5.4); Mean Corpuscular Volume 81.8 fL (80.0-100.0); Monocytes # (auto) 0.6 10 ^3/uL (0-1.3); Monocytes % (auto) 8.2 % (0.0-12.0); Nucleated Red Blood Cells % 0.1 %
[2024-11-02 05:39] LABS: Basophils % (auto) 0.5 % (0.0-2.0); Eosinophils % (auto) 3.4 % (0.0-7.0); Lymphocytes % (auto) 42.7 % (10.0-50.0); Mean Corpuscular Hemoglobin 27.9 pg (28.0-32.0); Mean Corpuscular Hgb Conc. 34.2 g/dL (32.0-36.0); Neutrophils # (auto) 3.2 10 ^3/uL (1.6-8.6); Neutrophils % (auto) 45.2 % (37.0-80.0); Platelet Count (auto) 411 10^3/uL (140-450); Red Blood Cells 2.69 10^6/uL (4.0-5.20); Red Cell Distribution Width 14.2 % (11.8-14.3); White Blood Cell 7.2 10^3/uL (4.4-10.8)
[2024-11-02 05:56] LABS: Alkaline Phosphatase 110 U/L (46-116); Anion Gap 7 (5-15); BUN/Creatinine Ratio 13.8 (10.0-20.0); Carbon Dioxide 21 mmol/L (20-31); Magnesium 2.2 mg/dL (1.6-2.6); Sodium 137 mmol/L (136-145); Total Protein 5.7 g/dL (5.7-8.2)
[2024-11-02 06:00] LABS: Alanine Aminotransferase < 9 U/L (7-40); Albumin 2.9 g/dL (3.2-4.8); Aspartate Aminotransferase < 8 U/L (13-40); Bilirubin, Total < 0.2 mg/dL (0.2-1.0); Blood Urea Nitrogen 36 mg/dL (9-23); Calcium 8.1 mg/dL (8.7-10.4); Chloride 109 mmol/L (98-107); Glucose 243 mg/dL (74-106)
[2024-11-02] MEDS: INSULIN LANTUS (GLARGINE) 1 /0.01ml (100units/ml) SC ONE (10:12)
[2024-11-02] MEDS: SODIUM ZIRCONIUM CYCL 10 GM PAK PO ONE (10:21)
--- NOTE | 2024-11-02 11:36 | DVHPN2 ---
Subjective No new complaints Her potassium is 6.0 Social workers are still working on arrangements for her to get IV antibiotics as outpatient Changes from previous H/P or p: Changes Skin: Other (Left foot ulcer) Objective Vitals Vital Signs Date Time Temp Pulse Resp B/P (MAP) Pulse Ox O2 Delivery O2 Flow Rate FiO2 11/02/24 09:13 97.9 88 19 135/69 (91) 93 97.9 11/02/24 08:00 Room Air* 0 21 Intake/Output Intake and Output 11/02/24 07:00 Intake Total 850 ml Output Total 0 ml Balance 850 ml Intake Oral 800 ml IV Total 50 ml Output Urine Total 0 ml # Voids 6 General Appearance: Alert, Oriented X3, Cooperative Extremities: No edema Medications Current Medications Medications Dose Ordered Sig/Thaddeus Route Start Time Stop Time Status Last Admin Dose Admin Ondansetron HCl 4 mg Q4HP PRN IV 10/22/24 14:30 10/28/24 12:24 4 MG Acetaminophen 650 mg Q6HP PRN PO 10/22/24 14:30 Diagnostic Test (Pha) 1 strip ACHS 10/22/24 17:00 11/02/24 06:06 1 STRIP Insulin Human Regular ACHS SC 10/22/24 17:00 11/02/24 06:09 4 UNITS Dextrose 50 ml UD PRN IV 10/22/24 14:30 Amlodipine Besylate 10 mg DAILY PO 10/23/24 10:00 11/02/24 09:11 10 MG Atorvastatin Calcium 40 mg HS PO 10/22/24 22:00 11/01/24 21:32 40 MG Hydralazine HCl 50 mg TID PRN PO 10/22/24 14:30 11/01/24 12:25 50 MG Cholecalciferol 5,000 unit DAILY PO 10/23/24 10:00 11/02/24 09:11 5,000 UNIT Magnesium Oxide 400 mg BID PO 10/26/24 22:00 11/02/24 09:09 400 MG Furosemide 20 mg DAILY PO 10/27/24 10:00 11/02/24 09:10 20 MG Docusate Sodium 100 mg BID PO 10/28/24 22:00 11/02/24 09:09 100 MG Polyethylene Glycol 17 gm DAILY PO 10/29/24 10:00 11/02/24 09:11 17 GM Daptomycin 450 mg/ Sodium Chloride 50 ml @ 100 mls/hr Q48H IV 10/28/24 14:00 11/01/24 15:16 100 MLS/HR Acetaminophen/ Hydrocodone Bitart 1 tab Q6HPRN PRN PO 11/01/24 14:45 11/01/24 21:33 1 TAB Insulin Glargine 10 units BID@0700,2200 SC 11/02/24 22:00 Laboratory Results Laboratory Tests 11/02/24 04:53 Chemistry Test 11/02/24 04:53 Albumin 2.9 g/dL (3.2-4.8) L Calcium Level 8.1 mg/dL (8.7-10.4) L Magnesium Level 2.2 mg/dL (1.6-2.6) Total Protein 5.7 g/dL (5.7-8.2) LFT Test 11/02/24 04:53 Alanine Aminotransferase (ALT) < 9 U/L (7-40) Alkaline Phosphatase 110 U/L (46-116) Aspartate Amino Transferase (AST) < 8 U/L (13-40) L Total Bilirubin < 0.2 mg/dL (0.2-1.0) L Urinalysis Test 10/23/24 06:30 10/27/24 00:10 Urine Hyaline Casts Few /lpf (0 - 2) Urine Yeast (Budding) Occasional /hpf (None Urine Color Light-yellow (Yellow) Urine Clarity Clear (Clear) Urine pH 6.5 (5.0-9.0) Urine Specific [place] 1.011 (1.001-1.035) Urine Protein 3+ (Negative) H Urine Ketones Negative (Negative) Urine Blood 1+ /uL (Negative) H Urine Nitrite Negative (Negative) Urine Bilirubin Negative (Negative) Urine Urobilinogen Normal mg/dL (Negative) Urine Leukocyte Esterase Negative /uL (Negative) Urine RBC 1 /hpf (0 - 4) Urine Microscopic WBC 2 /HPF (0-5) Urine Squamous Epithelial Cells Few /hpf (<5) Urine Bacteria Few /hpf (None Seen) H Urine Creatinine 58.35 mg/dL (30.0-125.0) Urine Protein/Creatinine Ratio 8.99 Urine Glucose 4+ mg/dL (Normal) H Urine Total Protein 524.3 mg/dL (1-14) H Urine Test Negative (Negative) Microbiology Microbiology Date/Time Source Procedure Growth Status 10/25/24 13:15 Foot Left Gram Stain - Final Complete 10/25/24 13:15 Foot Left Anaerobic Culture - Final Complete 10/25/24 13:15 Aerobic Culture - Final Methicillin Resistant S.aureus Streptococcus Group B Complete 10/22/24 14:51 Blood Blood Culture - Final NO GROWTH AFTER 5 DAYS OF INCUBATION. Complete Assessment/Plan Assessment/Plan Left foot cellulitis and nonhealing wound Hypertension Type 2 diabetes Mixed hyperlipidemia Chronic kidney disease Chronic anemia Plan IV antibiotics with clindamycin Podiatry consult Monitor the blood glucose with a sliding scale regular insulin Resume home medications Monitor closely Full code Wound culture Advance directives discussed for 16 minutes 10/24/2024: NPO after midnight for surgery tomorrow Podiatry consult is on Continue IV clindamycin Monitor the patient closely Discussed with the patient and at the bedside 10/25/2024: Surgery is for today Monitor the patient closely Continue IV clindamycin The rest of the management will depend on the hospital course 10/26/2024: 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: Continue IV clindamycin Chronic kidney disease: Consult Nephrology Anemia: Get iron studies Order a PICC line We will arrange IV antibiotics for 6 weeks once the culture from the surgical specimen is back Monitor closely and the rest of the management will depend on the hospital course Hypomagnesemia: Replace 10/27/2024: Second surgery to be done today G stain from the 1st surgery showed Gram-positive cocci in pairs Chronic anemia of chronic kidney disease Switch the antibiotics to ertapenem IV PICC line for home IV antibiotics Monitor closely 10/28/2024: IV daptomycin while in the hospital Consult infectious disease Dr. Parkinson recommended for the patient to get outpatient dalbavancin which is given in 2 doses IV by home health with out a PICC line Anemia: Hemoglobin stable at 7.5 Chronic kidney disease: Stable with a creatinine of 2.4, potassium 5.4, GFR of 25 10/29/24: Continue daptomycin in the hospital Dalbavancin as outpatient starting Friday Wound care Discharge planning for Friday10/30/2024: Consult the manager social responsibility to arrange transportation from the patient's home to the infusion clinic so she can have her IV antibiotic as an outpatient since the patient does not have transportation and does not have a car to bring her to the clinic Continue daptomycin IV as soon as the patient is here Discharge planning 10/31/2024: Continue current management pending arrangements for the IV antibiotics 11/01/2024: Continue daptomycin IV for now The patient wants to discuss her options with the social workers regarding her IV antibiotics whether she wants to do IV daptomycin at home with home health for 6 weeks versus dalbavancin x2 doses without a PICC line but with the option she would need transportation arranged to go to the infusion clinic 11/02/2024: Hyperkalemia: She was given [facility] Nephrology is following Change her diet to a more restricted potassium diet adz worker is still working on arrangements for her to get dalbavancin IV as outpatient since she can not get home health due to her geographic area residents there is no home health there She needs transportation to go to the infusion clinic which the case management is working on Plan discussed with: Patient My Orders Orders - PATSY DAVIDSON MD Procedure Category Date Status Time Hydrocodone-Acet PHA 11/01/24 In Process 5/325mg Tab ([place] 14:45 Insulin Lantus PHA 11/02/24 In Process (Glargine) (Lantus) 22:00 Date of Service: November 02, 2024 Billing Provider: PATSY DAVIDSON MD Common Visit Codes: [id number] INP/OBS CARE(MOD) PATSY DAVIDSON MD November 02, 2024 11:36
--- NOTE | 2024-11-02 12:00 | DVHPN2 ---
Progress Note - Dictate Date Seen: November 02, 2024 Has the PT tested + for MRSA If YES, has PT been informed?: No Medical Necessity Reason Pt with a Central, PICC or Fol: No Subjective no new symptoms vital signs Vital Sign Date Time Temp Pulse Resp B/P (MAP) Pulse Ox O2 Delivery O2 Flow Rate FiO2 11/02/24 09:13 97.9 88 19 135/69 (91) 93 97.9 11/02/24 08:00 Room Air* 0 21 Total Intake and Output 11/01/24 11/01/24 11/02/24 15:00 23:00 07:00 Intake Total 650 ml 200 ml Output Total 0 ml Balance 650 ml 200 ml medications Current Medications Medications Dose Ordered Sig/Thaddeus Route Start Time Stop Time Status Last Admin Dose Admin Ondansetron HCl 4 mg Q4HP PRN IV 10/22/24 14:30 10/28/24 12:24 4 MG Acetaminophen 650 mg Q6HP PRN PO 10/22/24 14:30 Diagnostic Test (Pha) 1 strip ACHS 10/22/24 17:00 11/02/24 06:06 1 STRIP Insulin Human Regular ACHS SC 10/22/24 17:00 11/02/24 06:09 4 UNITS Dextrose 50 ml UD PRN IV 10/22/24 14:30 Amlodipine Besylate 10 mg DAILY PO 10/23/24 10:00 11/02/24 09:11 10 MG Atorvastatin Calcium 40 mg HS PO 10/22/24 22:00 11/01/24 21:32 40 MG Hydralazine HCl 50 mg TID PRN PO 10/22/24 14:30 11/01/24 12:25 50 MG Cholecalciferol 5,000 unit DAILY PO 10/23/24 10:00 11/02/24 09:11 5,000 UNIT Magnesium Oxide 400 mg BID PO 10/26/24 22:00 11/02/24 09:09 400 MG Furosemide 20 mg DAILY PO 10/27/24 10:00 11/02/24 09:10 20 MG Docusate Sodium 100 mg BID PO 10/28/24 22:00 11/02/24 09:09 100 MG Polyethylene Glycol 17 gm DAILY PO 10/29/24 10:00 11/02/24 09:11 17 GM Daptomycin 450 mg/ Sodium Chloride 50 ml @ 100 mls/hr Q48H IV 10/28/24 14:00 11/01/24 15:16 100 MLS/HR Acetaminophen/ Hydrocodone Bitart 1 tab Q6HPRN PRN PO 11/01/24 14:45 11/01/24 21:33 1 TAB Insulin Glargine 10 units BID@0700,2200 SC 11/02/24 22:00 Sodium Bicarbonate 650 mg BID PO 11/02/24 22:00 UNV objective Alert and oriented x 3 HEENT: NC,AT NAD Lungs CTA CV: RR, no pericardial rub Abdomen: soft, NT Neuro: AAOx3 laboratory and microbiology Laboratory Tests 11/02/24 04:53 Test 11/02/24 04:53 Range/Units Serum Glucose 243 H 74-106 mg/dL Assessment/Plan Assessment: 1. NEHA 2. CKD stage IV 3. Diabetic nephropathy 4. Proteinuria 5. Diabetic foot infection/left foot osteomyelitis 6. Metabolic acidosis 7. Hyperkalemia Plan: Dalbavancin recommended by ID to avoid PICC line and 6 weeks of antibiotics (will get a total of 2 doses, one week apart) changed diet to renal diet (2 g K). low K diet reviewed with patient continue Lasix 20 mg PO daily start sodium bicarb 650 mg PO BID . this will improve hyperkalemia as well Will start SGLT2i and follow as outpatient strict I&OS will need close outpatient follow up Dietary Evaluation Review Comments: CCHO-45 diet, consider Maged supplementation for wounds if GFR improves Expected Outcomes/Goals: controlled DM and healed wounds. Plan discussed with: Patient, Other GARY MCKINNON MD November 02, 2024 12:00
--- NOTE | 2024-11-02 13:42 | DVHPN2 ---
Tuyet Crews is a 39-year-old female with past medical history of hypertension, hyperlipidemia, diabetes type 2, right knee surgery, right foot surgery, left foot partial amputation, and who presents to the hospital with left foot ulcer with podiatry. Per podiatry she will have surgery this Friday. Patient also reports that she had pneumonia since June and was not taking medications for it. Patient states that she is allergic to Dilaudid gets hives and GI symptoms. She also reports that penicillin she has a high tolerance to which is no longer effective. Patient states that she sees a business relations manager, hrbp, and threat monitoring analyst. She denies any chest pain, shortness of breath, fever, chills, lightheadedness, weakness, dizziness, abdominal pain, nausea, vomiting, or diarrhea. Changes from previous H/P or p: No Changes Skin: Other (Left foot ulcer) Objective Vitals Vital Signs Date Time Temp Pulse Resp B/P (MAP) Pulse Ox O2 Delivery O2 Flow Rate FiO2 11/02/24 12:47 97.7 96 20 152/71 (98) 95 97.7 11/02/24 08:00 Room Air* 0 21 Intake/Output Intake and Output 11/02/24 06:59 Intake Total 850 ml Output Total 0 ml Balance 850 ml Intake Oral 800 ml IV Total 50 ml Output Urine Total 0 ml # Voids 6 Exam Dermatological: Skin is dry with mild erythema and some maceration around the wound site No gross deformities noted Mild non-pitting edema present bilaterally Sutures intact Vascular: Dorsalis pedis and posterior tibial pulses are 1+ bilaterally Capillary refill is under 2 seconds Skin temperature is warm bilaterally Neurologic: Protective sensation is absent on the plantar forefoot bilaterally Monofilament testing reveals decreased sensation in multiple plantar sites Musculoskeletal: Range of motion at the ankle and MTP joints is within normal limits. Strength is 5/5 in all tested muscle groups. Gait is antalgic due to offloading of the affected limb. General Appearance: Alert, Oriented X3, Cooperative Extremities: No edema Medications Current Medications Medications Dose Ordered Sig/Thaddeus Route Start Time Stop Time Status Last Admin Dose Admin Ondansetron HCl 4 mg Q4HP PRN IV 10/22/24 14:30 10/28/24 12:24 4 MG Acetaminophen 650 mg Q6HP PRN PO 10/22/24 14:30 Diagnostic Test (Pha) 1 strip ACHS 10/22/24 17:00 11/02/24 11:30 1 STRIP Insulin Human Regular ACHS SC 10/22/24 17:00 11/02/24 12:29 6 UNITS Dextrose 50 ml UD PRN IV 10/22/24 14:30 Amlodipine Besylate 10 mg DAILY PO 10/23/24 10:00 11/02/24 09:11 10 MG Atorvastatin Calcium 40 mg HS PO 10/22/24 22:00 11/01/24 21:32 40 MG Hydralazine HCl 50 mg TID PRN PO 10/22/24 14:30 11/01/24 12:25 50 MG Cholecalciferol 5,000 unit DAILY PO 10/23/24 10:00 11/02/24 09:11 5,000 UNIT Magnesium Oxide 400 mg BID PO 10/26/24 22:00 11/02/24 09:09 400 MG Furosemide 20 mg DAILY PO 10/27/24 10:00 11/02/24 09:10 20 MG Docusate Sodium 100 mg BID PO 10/28/24 22:00 11/02/24 09:09 100 MG Polyethylene Glycol 17 gm DAILY PO 10/29/24 10:00 11/02/24 09:11 17 GM Daptomycin 450 mg/ Sodium Chloride 50 ml @ 100 mls/hr Q48H IV 10/28/24 14:00 11/01/24 15:16 100 MLS/HR Acetaminophen/ Hydrocodone Bitart 1 tab Q6HPRN PRN PO 11/01/24 14:45 11/01/24 21:33 1 TAB Insulin Glargine 10 units BID@0700,2200 SC 11/02/24 22:00 Sodium Bicarbonate 650 mg BID PO 11/02/24 22:00 Laboratory Results Laboratory Tests 11/02/24 04:53 Chemistry Test 11/02/24 04:53 Albumin 2.9 g/dL (3.2-4.8) L Calcium Level 8.1 mg/dL (8.7-10.4) L Magnesium Level 2.2 mg/dL (1.6-2.6) Total Protein 5.7 g/dL (5.7-8.2) LFT Test 11/02/24 04:53 Alanine Aminotransferase (ALT) < 9 U/L (7-40) Alkaline Phosphatase 110 U/L (46-116) Aspartate Amino Transferase (AST) < 8 U/L (13-40) L Total Bilirubin < 0.2 mg/dL (0.2-1.0) L Urinalysis Test 10/23/24 06:30 10/27/24 00:10 Urine Hyaline Casts Few /lpf (0 - 2) Urine Yeast (Budding) Occasional /hpf (None Urine Color Light-yellow (Yellow) Urine Clarity Clear (Clear) Urine pH 6.5 (5.0-9.0) Urine Specific [place] 1.011 (1.001-1.035) Urine Protein 3+ (Negative) H Urine Ketones Negative (Negative) Urine Blood 1+ /uL (Negative) H Urine Nitrite Negative (Negative) Urine Bilirubin Negative (Negative) Urine Urobilinogen Normal mg/dL (Negative) Urine Leukocyte Esterase Negative /uL (Negative) Urine RBC 1 /hpf (0 - 4) Urine Microscopic WBC 2 /HPF (0-5) Urine Squamous Epithelial Cells Few /hpf (<5) Urine Bacteria Few /hpf (None Seen) H Urine Creatinine 58.35 mg/dL (30.0-125.0) Urine Protein/Creatinine Ratio 8.99 Urine Glucose 4+ mg/dL (Normal) H Urine Total Protein 524.3 mg/dL (1-14) H Urine Test Negative (Negative) Microbiology Microbiology Date/Time Source Procedure Growth Status 10/25/24 13:15 Foot Left Gram Stain - Final Complete 10/25/24 13:15 Foot Left Anaerobic Culture - Final Complete 10/25/24 13:15 Aerobic Culture - Final Methicillin Resistant S.aureus Streptococcus Group B Complete 10/22/24 14:51 Blood Blood Culture - Final NO GROWTH AFTER 5 DAYS OF INCUBATION. Complete Assessment/Plan Assessment/Plan ASSESSMENT: Patient is a 39-year-old seen on the floor 6 day s/p from a left foot I&D and delayed closure PLAN: - The patients chart was reviewed, clinical findings were discussed with the patient, the etiologies of the conditions were discussed in detail, and a treatment plan was agreed to at this time, with both oral and written instructions provided. - reviewed advanced imaging - discussed with the patient that surgery went well - patient should be nonweightbearing to left lower extremity - patient will need a PICC line for 6 weeks IV antibiotics - Leave dressings in place until she sees me on Friday - we will schedule an outpatient appointment for Friday All questions were answered and concerns addressed to the patient's satisfaction. The patient was given the phone number to the clinic and was told how to make contact with the clinic should any concerns or questions arise. Patient understands that if any questions or concerns arise prior to the next appointment, we should be contacted immediately. FOLLOW-UP: Continue to follow while inpatient Plan discussed with: Patient Problem List: (1) Cellulitis of foot (2) Abscess of foot (3) Osteomyelitis of foot (4) Diabetic ulcer of foot associated with type 2 diabetes mellitus, with bone involvement without evidence of necrosis Date of Service: November 02, 2024 Billing Provider: HECTOR WRIGHT DPM Common Visit Codes: [id number] INP/OBS CARE(HIGH) HECTOR WRIGHT DPM November 02, 2024 13:42
[2024-11-02] MEDS: SODIUM BICARBONATE 650 MG TAB PO SCH (21:38)
[2024-11-02] MEDS: INSULIN LANTUS (GLARGINE) 1 /0.01ml (100units/ml) SC SCH (21:45)
[2024-11-03 01:00] VITALS: BP 161/81; PULSE 94; RESP 16; TEMP 98; O2SAT 99
[2024-11-03 05:00] VITALS: BP 133/61; PULSE 85; RESP 16; TEMP 98.3; O2SAT 93
[2024-11-03 06:28] LABS: Anion Gap 7 (5-15); Carbon Dioxide 22 mmol/L (20-31); Sodium 138 mmol/L (136-145)
[2024-11-03 06:34] LABS: BUN/Creatinine Ratio 11.9 (10.0-20.0)
[2024-11-03 06:44] LABS: Chloride 109 mmol/L (98-107)
[2024-11-03 06:45] LABS: Blood Urea Nitrogen 37 mg/dL (9-23); Calcium 8.1 mg/dL (8.7-10.4); Glucose 252 mg/dL (74-106)
[2024-11-03 06:47] LABS: Potassium 5.7 mmol/L (3.5-5.1)
[2024-11-03 08:00] VITALS: PULSE 94; RESP 18; O2SAT 92
[2024-11-03 08:34] VITALS: BP 125/53; PULSE 94; RESP 18; TEMP 98.2; O2SAT 92
[2024-11-03] MEDS: SODIUM ZIRCONIUM CYCL 10 GM PAK PO ONE (09:27)
[2024-11-03 09:49] VITALS: BP 125/53; PULSE 94; RESP 18; TEMP 98.2; O2SAT 92
--- NOTE | 2024-11-03 22:23 | DVHDS2 ---
Discharge Summary Date of Admission October 22, 2024 at 14:28 Date of Discharge: November 03, 2024 Labs/Diagnostic Data: Laboratory Results Test 11/03/24 05:30 11/03/24 05:21 11/02/24 04:53 10/27/24 00:10 POC Glucose 261 mg/dl (70-106) Sodium Level 138 mmol/L (136-145) Potassium Level 5.7 mmol/L (3.5-5.1) Chloride Level 109 mmol/L (98-107) Carbon Dioxide Level 22 mmol/L (20-31) Anion Gap 7 (5-15) Blood Urea Nitrogen 37 mg/dL (9-23) Creatinine 3.12 mg/dL (0.550-1.02) Glomerular Filtration Rate Calc 19 mL/min (>90) BUN/Creatinine Ratio 11.9 (10.0-20.0) Serum Glucose 252 mg/dL (74-106) Calcium Level 8.1 mg/dL (8.7-10.4) White Blood Count 7.2 10^3/uL (4.4-10.8) Red Blood Count 2.69 10^6/uL (4.0-5.20) Hemoglobin 7.5 g/dL (12.2-16.2) Hematocrit 22.0 % (36.0-46.0) Mean Corpuscular Volume 81.8 fL (80.0-100.0) Mean Corpuscular Hemoglobin 27.9 pg (28.0-32.0) Mean Corpuscular Hemoglobin Concent 34.2 g/dL (32.0-36.0) Red Cell Distribution Width 14.2 % (11.8-14.3) Platelet Count 411 10^3/uL (140-450) Mean Platelet Volume 7.4 fL (6.9-10.8) Neutrophils (%) (Auto) 45.2 % (37.0-80.0) Lymphocytes (%) (Auto) 42.7 % (10.0-50.0) Monocytes (%) (Auto) 8.2 % (0.0-12.0) Eosinophils (%) (Auto) 3.4 % (0.0-7.0) Basophils (%) (Auto) 0.5 % (0.0-2.0) Neutrophils # (Auto) 3.2 10 ^3/uL (1.6-8.6) Lymphocytes # (Auto) 3.1 10 ^3/uL (0.4-5.4) Monocytes # (Auto) 0.6 10 ^3/uL (0-1.3) Eosinophils # (Auto) 0.2 10 ^3/uL (0-0.8) Basophils # (Auto) 0 10 ^3/uL (0-0.2) Nucleated Red Blood Cells 0.1 % Magnesium Level 2.2 mg/dL (1.6-2.6) Total Bilirubin < 0.2 mg/dL (0.2-1.0) Aspartate Amino Transferase (AST) < 8 U/L (13-40) Alanine Aminotransferase (ALT) < 9 U/L (7-40) Alkaline Phosphatase 110 U/L (46-116) Total Protein 5.7 g/dL (5.7-8.2) Albumin 2.9 g/dL (3.2-4.8) Urine Color Light-yellow (Yellow) Urine Clarity Clear (Clear) Urine pH 6.5 (5.0-9.0) Urine Specific [place] 1.011 (1.001-1.035) Urine Protein 3+ (Negative) Urine Ketones Negative (Negative) Urine Blood 1+ /uL (Negative) Urine Nitrite Negative (Negative) Urine Bilirubin Negative (Negative) Urine Urobilinogen Normal mg/dL (Negative) Urine Leukocyte Esterase Negative /uL (Negative) Urine RBC 1 /hpf (0 - 4) Urine Microscopic WBC 2 /HPF (0-5) Urine Squamous Epithelial Cells Few /hpf (<5) Urine Bacteria Few /hpf (None Seen) Urine Creatinine 58.35 mg/dL (30.0-125.0) Urine Protein/Creatinine Ratio 8.99 Urine Glucose 4+ mg/dL (Normal) Urine Total Protein 524.3 mg/dL (1-14) Urine Test Negative (Negative) Test 10/26/24 06:44 10/25/24 05:30 10/24/24 23:53 10/23/24 06:30 Iron Level 31 ug/dL (50-170) Total Iron Binding Capacity 212 ug/dL (250-425) Percent Iron Saturation 14.6 % (15-50) Prothrombin Time 10.1 sec (9.3-11.8) Prothrombin Time INR 0.95 (0.9-1.15) Activated Partial Thromboplast Time < 20.0 SEC (24.5-34.5) Beta HCG, Quantitative 0.9 mIU/mL (1.5-4.2) Urine Hyaline Casts Few /lpf (0 - 2) Urine Yeast (Budding) Occasional /hpf (None Urine Opiates Screen Neg (NEGATIVE) Urine Fentanyl Screen Neg (NEGATIVE) Urine Barbiturates Screen Neg (NEGATIVE) Urine Phencyclidine Screen Neg (NEGATIVE) Urine Amphetamines Screen Neg (NEGATIVE) Urine Benzodiazepines Screen Neg (NEGATIVE) Urine Cocaine Screen Neg (NEGATIVE) Urine Cannabinoids Screen Neg (NEGATIVE) Test 10/22/24 14:57 10/22/24 14:45 Hemoglobin A1c 8.1 % A1C (<5.7) Erythrocyte Sedimentation Rate 124 mm/hr (0-20) Lactic Acid Level 0.4 mmol/L (0.4-2.0) C-Reactive Protein High Sensitivity 2.06 mg/dL (<1.0) Other Laboratory Tests 11/03/24 05:21 11/02/24 04:53 Brief Hx & Hospital Course: Final diagnoses: Left foot cellulitis and nonhealing wound Left foot osteomyelitis status post incision and drainage Left foot abscess status post incision and drainage Hypertension Type 2 diabetes Mixed hyperlipidemia Chronic kidney disease Chronic anemia 39-year-old female with a history of chronic kidney disease, diabetes, hypertension came with a nonhealing wound of her left foot after she was seen by hotel maintenance technician and was sent to the hospital for admission she was admitted on IV antibiotics She had surgery I and D and debridement and the culture came back MRSA Needed IV antibiotics at home for 6 weeks and therefore we investigated the possibility of home health and a PICC line to go home with the fact that she lives in an area that is not service with home health possible and therefore we consulted Infectious Disease recommended to start the patient on dalbavancin which can be given as an it was ordered and her approved it and therefore the plan was for her to be with no PICC line and have it at antibiotic done Because she needs transportation to go and have the antibiotic done, she needed social service to arrange that for her which was eventually done discharge today to the infusion clinic to have the 1st dose and then she will come next week again to have the 2nd dose. Regarding her chronic kidney disease, she had episodes of hyperkalemia which was treated with [facility] nephrology follow up with the patient, her kidney function is stable and she will follow as an outpatient Condition at Discharge: Stable Final Diagnosis/Problems List Left foot cellulitis and nonhealing wound s/p Sx Left foot osteomyelitis Hypertension Type 2 diabetes Mixed hyperlipidemia Chronic kidney disease Chronic anemia Discharge Disposition: Home SNF Discharge Will this Physician continue t: No Discharge Instruct/Medications Diet: Consistent carbohydrate, Cardiac 2g Na,low cholest, Renal Activity: No Restrictions, As Tolerated Activity comment: NON weight bearing on left foot. Follow Up/Referral: Jerry today at [facility] for first dose of dalbavancin Jerry 11/10 at [facility] for second dose of dalbavancin F/U Dr. Rosales as scheduled Medications: Same home meds Discharge Statement: "Patient was advised to return to the ER or call 911 if any headaches, dizziness, shortness of breath, chest pain, abdominal pain, bleeding, fevers, or worsening of medical condition. Patient was counseled about treatment plan, medications, possible side effects, patientverbalized understanding. All questions were answered to the best of my ability. This discharge took greater then 30 minutes in planning, reviewing documentation, counseling the patient, and discussing with other team members." ASSESSMENT ASSESSMENT Assessment Left foot cellulitis and nonhealing wound s/p Sx Left foot osteomyelitis Hypertension Type 2 diabetes Mixed hyperlipidemia Chronic kidney disease Chronic anemia Date of Service: November 03, 2024 Billing Provider: PATSY DAVIDSON MD Common Visit Codes: [id number] DISCH DAY >30min PATSY DAVIDSON MD November 03, 2024 22:23
== END 2024-11-03 11:45 | disposition home or self-care (01) | DRG 380 ==
LOC: CENTRAL 14:28
PROVIDERS: ADMIT Internal Medicine Geriatric Medicine; ATTEND Internal Medicine Geriatric Medicine
PROC: 0QBP0ZX Excision of Left Metatarsal, Open Approach, Diagnostic (ICD-10-PCS; 2024-10-25)
PROC: 0Y9N0ZZ Drainage of Left Foot, Open Approach (ICD-10-PCS; principal; 2024-10-25 12:54)
PROC: 0Y9N0ZZ Drainage of Left Foot, Open Approach (ICD-10-PCS; 2024-10-27)
PROC: 0QBP0ZX Excision of Left Metatarsal, Open Approach, Diagnostic (ICD-10-PCS; 2024-10-27)
DX: E11.69 Type 2 diabetes mellitus with other specified complication (principal); L97.529 Non-pressure chronic ulcer of other part of left foot with unspecified severity; N17.9 Acute kidney failure, unspecified; E87.20 Acidosis, unspecified; E11.22 Type 2 diabetes mellitus with diabetic chronic kidney disease; E44.1 Mild protein-calorie malnutrition; L03.116 Cellulitis of left lower limb; E11.621 Type 2 diabetes mellitus with foot ulcer; B95.1 Streptococcus, group B, as the cause of diseases classified elsewhere; B95.62 Methicillin resistant Staphylococcus aureus infection as the cause of diseases classified elsewhere; N18.4 Chronic kidney disease, stage 4 (severe); Z68.33 Body mass index [BMI] 33.0-33.9, adult; D64.9 Anemia, unspecified; L02.612 Cutaneous abscess of left foot; E11.628 Type 2 diabetes mellitus with other skin complications; E87.5 Hyperkalemia; I12.9 Hypertensive chronic kidney disease with stage 1 through stage 4 chronic kidney disease, or unspecified chronic kidney disease; E66.9 Obesity, unspecified; E78.2 Mixed hyperlipidemia; L84 Corns and callosities; Z98.891 History of uterine scar from previous surgery; Z83.3 Family history of diabetes mellitus; Z80.0 Family history of malignant neoplasm of digestive organs; Z88.5 Allergy status to narcotic agent
CPT/HCPCS: 36415; 71045; 80048; 80053; 80307; 81001; 81025; 82565; 82570; 82962; 83036; 83540; 83550; 83605; 83735; 84156; 84702; 85025; 85610; 85652; 85730; 86141; 86850; 86900; 86901; 87040; 87070; 87075; 87077; 87186; 87205; G0378; J1100; J1335; J1815; J2003; J2250; J2405; J2704; J3490

== ENCOUNTER 2025-05-26 13:10 | Inpatient (IN) | payer MEDICAID ==
[~2025-05-26] VITALS: Ht 162.6 cm; Wt 114.0 kg
--- NOTE | 2025-05-26 13:39 | ED.PDOC ---
History of Present Illness HPI Comments 40 y/o F, with PMHx of CKF presents to the ED for CC of abnormal labs. Patient states, she was sent by her Urologist for initiation of dialysis d/t elevated potassium and creatinine levels. At this time patient reports, generalized body pain. No other symptoms or modifying factors are reported. 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 CLERK Hx Family History Family History: Unknown Social History Smoker: Non-Smoker Alcohol: Denies ETOH Use Drugs: Denies Drug Use Lives In: Home Constitutional: denies: chills, diaphoresis, fatigue, fever, malaise, sweats, weakness, others EENTM: denies: blurred vision, double vision, ear bleeding, ear discharge, ear drainage, ear pain, ear ringing, eye pain, eye redness, hearing loss, mouth pain, mouth swelling, nasal discharge, nose bleeding, nose congestion, nose pain, photophobia, tearing, throat pain, throat swelling, voice changes, others Respiratory: denies: cough, hemoptysis, orthopnea, SOB at rest, shortness of breath, SOB with excertion, stridor, wheezing, others Cardiovascular: denies: chest pain, dizzy spells, diaphoresis, Dyspnea on exertion, edema, irregular heart beat, left arm pain, lightheadedness, palpitations, PND, syncope, others Gastrointestinal: denies: abdomen distended, abdominal pain, blood streaked bowels, constipated, diarrhea, dysphagia, difficulty swallowing, hematemesis, melena, nausea, poor appetite, poor fluid intake, rectal bleeding, rectal pain, vomiting, others Genitourinary: denies: abnormal vagina bleeding, burning, dyspareunia, dysuria, flank pain, frequency, hematuria, incontinence, pain, , vagina discharge, urgency, others Neurological: denies: dizziness, fainting, headache, left sided numbness, left sided weakness, numbness, paresthesia, pre-existing deficit, right sided numbness, right sided weakness, seizure, speech problems, tingling, tremors, weakness, others Musculoskeletal: reports: others (body-aches); denies: back pain, gout, joint pain, joint swelling, muscle pain, muscle stiffness, neck pain Integumetry: denies: bruises, change in color, change in hair/nails, dryness, laceration, lesions, lumps, rash, wounds, others Allergic/Immunocompromised: denies: Difficulty Healing, Frequent Infections, Hives, Itching, others Hematologic/Lymphatic: denies: anemia, blood clots, easy bleeding, easy bruising, swollen glands, others Endocrine: denies: excessive hunger, excessive sweating, excessive thirst, excessive urination, flushing, intolerance to cold, intolerance to heat, unexplained weight gain, unexplained weight loss, others Psychiatric: denies: anxiety, bipolar disorder, depression, hopeless, panic disorder, schizophrenia, sleepless, suicidal, others Physical Exam General Appearance: No Apparent Distress, Obese HEENT: Normal ENT Inspection, Pharynx Normal Neck: Full Range of Motion, Non-Tender, Normal, Normal Inspection Respiratory: Chest Non-Tender, Lungs Clear, No Accessory Muscle Use, No Respiratory Distress, Normal Breath Sounds Cardiovascular: No Edema, No Murmur, No Gallop, Normal Peripheral Pulses, Regular Rate/Rhythm Breast Exam: Deferred Gastrointestinal: No Organomegaly, Non Tender, No Pulsatile Mass, Normal Bowel Sounds, Soft Genitalia: Deferred Pelvic: Deferred Rectal: Deferred Extremities: No calf tenderness, Normal capillary refill, Normal inspection, Normal range of motion, Non-tender, No pedal edema Musculoskeletal : Apperance: Normal 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 Was a procedure done?: No Differential Dx Considerations may include: kidney disease/renal failure X-Ray, Labs, Meds, VS Vital Signs Date Time Temp Pulse Resp B/P (MAP) Pulse Ox O2 Delivery O2 Flow Rate FiO2 05/26/25 13:42 94 24 96 Room Air* 0 21 05/26/25 13:42 94 24 189/92 (124) 96 05/26/25 13:33 96 05/26/25 13:14 98.1 89 18 194/110 98 98.1 Lab Test 05/26/25 13:44 05/26/25 13:43 Range/Units Urine Color Light-yellow Yellow Urine Clarity Clear Clear Urine pH 6.5 5.0-9.0 Urine Specific [place] 1.014 1.001-1.035 Urine Protein 3+ H Negative Urine Ketones Negative Negative Urine Blood 1+ H Negative /uL Urine Nitrite Negative Negative Urine Bilirubin Negative Negative Urine Urobilinogen Normal Negative mg/dL Urine Leukocyte Esterase Negative Negative /uL Urine RBC 2 0 - 4 /hpf Urine Microscopic WBC 3 0-5 /HPF Urine Squamous Epithelial Cells Few <5 /hpf Urine Bacteria Few H None Seen /hpf Urine Glucose 4+ H Normal mg/dL White Blood Count 7.4 4.4-10.8 10^3/uL Red Blood Count 3.34 L 4.0-5.20 10^6/uL Hemoglobin 8.5 L 12.2-16.2 g/dL Hematocrit 27.5 L 36.0-46.0 % Mean Corpuscular Volume 82.4 80.0-100.0 fL Mean Corpuscular Hemoglobin 25.4 L 28.0-32.0 pg Mean Corpuscular Hemoglobin Concent 30.8 L 32.0-36.0 g/dL Red Cell Distribution Width 16.6 H 11.8-14.3 % Platelet Count 313 140-450 10^3/uL Mean Platelet Volume 7.7 6.9-10.8 fL Neutrophils (%) (Auto) 74.0 37.0-80.0 % Lymphocytes (%) (Auto) 16.8 10.0-50.0 % Monocytes (%) (Auto) 6.5 0.0-12.0 % Eosinophils (%) (Auto) 2.1 0.0-7.0 % Basophils (%) (Auto) 0.6 0.0-2.0 % Neutrophils # (Auto) 5.5 1.6-8.6 10 ^3/uL Lymphocytes # (Auto) 1.2 0.4-5.4 10 ^3/uL Monocytes # (Auto) 0.5 0-1.3 10 ^3/uL Eosinophils # (Auto) 0.2 0-0.8 10 ^3/uL Basophils # (Auto) 0 0-0.2 10 ^3/uL Nucleated Red Blood Cells 0.1 % Prothrombin Time 10.8 9.3-11.8 sec Prothrombin Time INR 1.02 0.9-1.15 Activated Partial Thromboplast Time 24.5 24.5-34.5 SEC Sodium Level 139 136-145 mmol/L Potassium Level 5.9 *H 3.5-5.1 mmol/L Chloride Level 115 H 98-107 mmol/L Carbon Dioxide Level 15 L 20-31 mmol/L Anion Gap 9 5-15 Blood Urea Nitrogen 44 H 9-23 mg/dL Creatinine 6.14 H 0.550-1.02 mg/dL Glomerular Filtration Rate Calc 8 >90 mL/min BUN/Creatinine Ratio 7.2 L 10.0-20.0 Serum Glucose 185 H 74-106 mg/dL Calcium Level 7.7 L 8.7-10.4 mg/dL Phosphorus Level 6.6 H 2.4-5.1 mg/dL Magnesium Level 1.5 L 1.6-2.6 mg/dL Hepatitis B Surface Antigen Pending Hepatitis B Surface Antibody Pending Hepatitis C Antibody Pending Current Medications Medications (Trade) Dose Ordered Sig/Thaddeus Route Start Time Stop Time Status Last Admin Insulin Human Regular (InsuLIN R) 10 units ONCE ONCE IV 05/26/25 15:00 05/26/25 15:04 DC 05/26/25 15:50 Dextrose 50 ml ONCE ONCE IV 05/26/25 15:00 05/26/25 15:03 DC 05/26/25 15:49 Albuterol (Ventolin Medneb) 20 mg ONCE ONCE NEB 05/26/25 15:00 05/26/25 15:03 DC 05/26/25 15:11 Zirconium Oxide (Lokelma) 10 gm ONCE ONCE PO 05/26/25 15:00 05/26/25 15:03 DC 05/26/25 15:51 Magnesium Sulfate/ Dextrose 100 ml @ 100 mls/hr Q1H IV 05/26/25 15:00 05/26/25 16:59 DC 05/26/25 16:[address] [address] Ph: [phone] DIAGNOSTIC IMAGING Diagnostic Imaging Report : [id number] Signed with Addenda PATIENT: FLAVIO ESPINAL ACCT: [id number] UNIT: [id number] : 1985 LOC: ER ROOM / BED: / AGE / SEX: 40 / F ADM STATUS: REG ER SERVICE 1333 ORDERING PHYSICIAN: JENNIFER HERNANDEZ MD PROCEDURE(s): CXRP - CHEST PORTABLE REASON: sob ORDER NUMBER(s): [id number], ACCESSION NUMBER(s): [id number] ADDENDUM ADDENDUM # 1 hs:y ORIGINAL REPORT CHEST RADIOGRAPH INDICATION: sob TECHNIQUE: Single frontal view of the chest was obtained COMPARISON: CT CHEST WITHOUT on DOS: 02/17/25, XR CHEST 1 VIEW on DOS: 02/17/25, XR CHEST 2 VIEWS on DOS: 11/17/24, XY CHEST PORTABLE on DOS: 10/27/24, XY CHEST XRAY 1 VIEW on DOS: 10/22/24 FINDINGS: Lines and Tubes: None Lungs: Mild diffuse increased prominence of the pulmonary vasculature. No evidence of focal consolidation. Pleura: No effusion. No pneumothorax. Cardiomediastinal contours: Unremarkable Bones: Unremarkable IMPRESSION: 1. Mild diffuse increased prominence of the pulmonary vasculature. ATED BY: PITO RUSS MD DICTATED DATE/TIME: 05/26/251500 SIGNED BY: PITO RUSS MD SIGNED DATE/TIME: 05/26/25 150 CC: CHEST RADIOGRAPH INDICATION: sob TECHNIQUE: Single frontal view of the chest was obtained COMPARISON: CT CHEST WITHOUT on DOS: 02/17/25, XR CHEST 1 VIEW on DOS: 02/17/25, XR CHEST 2 VIEWS on DOS: 11/17/24, XY CHEST PORTABLE on DOS: 10/27/24, XY CHEST XRAY 1 VIEW on DOS: 10/22/24 FINDINGS: Lines and Tubes: None Lungs: Mild diffuse increased prominence of the pulmonary vasculature. No evidence of focal consolidation. Pleura: No effusion. No pneumothorax. Cardiomediastinal contours: Unremarkable Bones: Unremarkable IMPRESSION: 1. Mild diffuse increased prominence of the pulmonary vasculature. ATED BY: PITO RUSS MD DICTATED DATE/TIME: 05/26/251433 SIGNED BY: PITO RUSS MD SIGNED DATE/TIME: 05/26/251433 CC: Time of 1ST Reevaluation: 14:00 Reevaluation 1ST: Unchanged Patient Education/Counseling: Diagnosis, Treatment Family Education/Counseling: Diagnosis, Treatment SEPSIS Sepsis Screen Date sepsis recognized/suspect: May 26, 2025 Time Sepsis recognized/suspect: 1316 Recent Procedure: No On Antibiotic Therapy: No Respiratory Rate >20: No Heart Rate >90: No Temp<36 C (96.8 F) or >38.3 C: No SBP <90 or MAP <65 mmHG: No New Acute Mental Status Change: No Is the patient on CPAP, BIPAP,: No Physician Orders Chest Portable (05/26/25 13:33) Insert Midline (05/26/25 14:15) *Dr. Norton [facility] (05/26/25 15:07) * Radiologist Consult (05/26/25 15:08) Vital Signs Date Time Temp Pulse Resp B/P (MAP) Pulse Ox O2 Delivery O2 Flow Rate FiO2 05/26/25 13:42 94 24 96 Room Air* 0 21 05/26/25 13:42 94 24 189/92 (124) 96 05/26/25 13:33 96 05/26/25 13:14 98.1 89 18 194/110 98 98.1 Laboratory Tests Test 05/26/25 13:43 White Blood Count 7.4 10^3/uL (4.4-10.8) Medications Medications Dose Ordered Sig/Thaddeus Route Start Time Stop Time Status Last Admin Dose Admin Albuterol 20 mg ONCE ONCE NEB 05/26/25 15:00 05/26/25 15:03 DC 05/26/25 15:11 Dextrose 50 ml ONCE ONCE IV 05/26/25 15:00 05/26/25 15:03 DC 05/26/25 15:49 Insulin Human Regular 10 units ONCE ONCE IV 05/26/25 15:00 05/26/25 15:04 DC 05/26/25 15:50 Magnesium Sulfate/ Dextrose 100 ml @ 100 mls/hr Q1H IV 05/26/25 15:00 05/26/25 16:59 DC 05/26/25 16:49 Zirconium Oxide 10 gm ONCE ONCE PO 05/26/25 15:00 05/26/25 15:03 DC 05/26/25 15:51 Departure 1 Departure Time of Disposition: 17:27 (Patient with a worsening kidney failure and hyperkalemia. We will empirically cover patient with a hyper K cocktail admit patient for initiation of dialysis.) Impression: Primary Impression: Hyperkalemia Additional Impression: Renal failure Disposition: ADMITTED INPATIENT Admit to: Tele Condition: Guarded e-Prescriptions No Active Prescriptions or Reported Meds Critical Care Note Critical Care Time?: Yes Critical care comment: Hyperkalemia Authorized and Performed by: Jennifer Hernandez MD Total critical care time: Approximately 39 minutes Due to a high probability of clinically significant, life threatening deterioration, the patient required my highest level of preparedness to intervene emergently and I personally spent this critical care time directly and personally managing the patient. This critical care time included obtaining a history; examining the patient; pulse oximetry; ordering and review of studies; arranging urgent treatment with development of a management plan; evaluation of patient's response to treatment; frequent reassessment; and, discussions with other providers. This critical care time was performed to assess and manage the high probability of imminent, life-threatening deterioration that could result in multi-organ failure. It was exclusive of separately billable procedures and treating other patients and teaching time. Please see my other sections and the rest of the note for further information on patient assessment and treatment. Stability Stability form required: No Heart Score Heart Score: Heart Score Response (Comments) Value History N/A 0 EKG N/A 0 Age N/A 0 Risk Factors N/A 0 Troponin N/A 0 Total 0 I personally scribed for JENNIFER HERNANDEZ MD ([email or web address]) on 05/26/25 at 13:39. Electronically submitted by Lindy Kaur ([email or web address]). I personally scribed for JENNIFER HERNANDEZ MD ([email or web address]) on 05/26/25 at 16:31. Electronically submitted by Lindy Kaur ([email or web address]). JENNIFER HERNANDEZ MD May 26, 2025 13:39
[2025-05-26 13:42] VITALS: PULSE 94; RESP 24; O2SAT 96
[2025-05-26 13:53] LABS: Nucleated Red Blood Cells % 0.1 %
[2025-05-26 13:55] LABS: Hematocrit 27.5 % (36.0-46.0); Hemoglobin 8.5 g/dL (12.2-16.2); Mean Corpuscular Hemoglobin 25.4 pg (28.0-32.0); Mean Corpuscular Volume 82.4 fL (80.0-100.0)
[2025-05-26 14:01] LABS: Urine Protein, UAD 3+ (Negative)
[2025-05-26 14:03] LABS: Sodium 139 mmol/L (136-145)
[2025-05-26 14:04] LABS: Anion Gap 9 (5-15)
[2025-05-26 14:09] LABS: BUN/Creatinine Ratio 7.2 (10.0-20.0)
[2025-05-26 14:10] LABS: Blood Urea Nitrogen 44 mg/dL (9-23); Calcium 7.7 mg/dL (8.7-10.4); Carbon Dioxide 15 mmol/L (20-31); Chloride 115 mmol/L (98-107); Glucose 185 mg/dL (74-106); Magnesium 1.5 mg/dL (1.6-2.6)
[2025-05-26 14:11] LABS: Potassium 5.9 mmol/L (3.5-5.1)
[2025-05-26 14:13] LABS: INR 1.02 (0.9-1.15); Partial Thromboplastin Time 24.5 SEC (24.5-34.5); Prothrombin Time 10.8 sec (9.3-11.8)
--- NOTE | 2025-05-26 14:37 | DVH ---
CHEST RADIOGRAPH INDICATION: sob TECHNIQUE: Single frontal view of the chest was obtained COMPARISON: CT CHEST WITHOUT on DOS: 02/17/25, XR CHEST 1 VIEW on DOS: 02/17/25, XR CHEST 2 VIEWS on DOS: 11/17/24, XY CHEST PORTABLE on DOS: 10/27/24, XY CHEST XRAY 1 VIEW on DOS: 10/22/24 FINDINGS: Lines and Tubes: None Lungs: Mild diffuse increased prominence of the pulmonary vasculature. No evidence of focal consolidation. Pleura: No effusion. No pneumothorax. Cardiomediastinal contours: Unremarkable Bones: Unremarkable IMPRESSION: 1. Mild diffuse increased prominence of the pulmonary vasculature.
--- NOTE | 2025-05-26 15:01 | DVHHP2 ---
Admitting Diagnosis: Abnormal lab History of Present Illness 40 y/o F, with PMHx of CKF presents to the ED for CC of abnormal labs. Patient states, she was sent by her nephro for initiation of dialysis d/t elevated potassium and creatinine levels. At this time patient reports, generalized body pain. No other symptoms or modifying factors are reported. 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 Allergies: Coded Allergies: Hydromorphone (Verified Allergy, Intermediate, 10/22/24) Penicillins (Verified Allergy, Unknown, 10/22/24) Home Meds No Active Prescriptions or Reported Meds Current Medications Current Medications Medications (Trade) Dose Ordered Sig/Thaddeus Route PRN Reason Start Time Stop Time Status Last Admin Magnesium Sulfate/ Dextrose 100 ml @ 100 mls/hr Q1H IV 05/26/25 15:00 05/26/25 16:59 Sodium Chloride (Saline Lock Ns) 10 ml Q8HR IV 05/26/25 22:00 UNV Docusate Sodium (Colace Capsule) 100 mg BIDPRN PRN PO FOR CONSTIPATION 05/26/25 15:15 UNV Acetaminophen (Tylenol Tablet) 650 mg Q6HP PRN PO PAIN SCALE 1-3 OR TEMP>100.4 05/26/25 15:15 UNV Acetaminophen/ Hydrocodone Bitart ([place] 5/325MG Tab) 1 tab Q4HP PRN PO MODERATE PAIN (4-6 PAIN SCALE) 05/26/25 15:15 UNV Hydromorphone HCl (Dilaudid Injection) 0.5 mg Q4HP PRN IV SEVERE PAIN (7-10 PAIN SCALE) 05/26/25 15:15 UNV Ondansetron HCl (Zofran) 4 mg Q4HP PRN IV NAUSEA / VOMITING 05/26/25 15:15 UNV Diagnostic Test (Pha) (Accu-Chek Comfort Curve T) 1 strip ACHS 05/26/25 17:00 UNV Insulin Human Regular (InsuLIN R) ACHS SC 05/26/25 17:00 UNV Dextrose 50 ml UD PRN IV Blood Sugar LESS THAN 60 05/26/25 15:15 UNV Hydralazine HCl (Apresoline Injection) 10 mg Q6H PRN IV SBP > 165 05/26/25 15:15 UNV Vital Signs Vital Signs Date Time Temp Pulse Resp B/P (MAP) Pulse Ox O2 Delivery O2 Flow Rate FiO2 05/26/25 13:42 94 24 96 Room Air* 0 21 05/26/25 13:42 189/92 (124) 05/26/25 13:14 98.1 98.1 Physical Exam Generally-40 years old woman, morbidly obese, lying in bed. No apparent distre ss HEENT-atraumatic normocephalic Heart-regular rate and rhythm decreased breath sounds bilaterally Abdomen soft nontender nondistended Musculoskeletal-he had edema Neuro-AO x3, no focal deficits SEPSIS Sepsis Screen Date sepsis recognized/suspect: May 26, 2025 Time Sepsis recognized/suspect: 1316 Recent Procedure: No On Antibiotic Therapy: No Respiratory Rate >20: No Heart Rate >90: No Temp<36 C (96.8 F) or >38.3 C: No SBP <90 or MAP <65 mmHG: No New Acute Mental Status Change: No Is the patient on CPAP, BIPAP,: No Physician Orders Chest Portable (05/26/25 13:33) Electrocardigram (05/26/25 13:33) Insert Midline (05/26/25 14:15) Magnesium Sulfate 1gm/100ml (05/26/25 15:00) *Dr. Norton [facility] (05/26/25 15:07) * Radiologist Consult (05/26/25 15:08) Npo Except For Medications (05/26/25 15:09) Npo (Nothing By Mouth) Diet (05/26/25 Dinner) Admit (05/26/25 15:09) Code Status (05/26/25 15:09) Vital Signs .PER UNIT PROTOCOL (05/26/25 15:09) Review Orders With Adm. (05/26/25 15:09) Encourage Activity As Tolerate (05/26/25 15:09) Sodium Chloride Lock (Saline Lock Ns) (05/26/25 22:00) Docusate Sodium Capsule (Colace Capsule) (05/26/25 15:15) Acetaminophen Tablet (Tylenol Tablet) (05/26/25 15:15) Notify Md Of Changes From Base (05/26/25 15:09) Advance Directive (05/26/25 15:09) Patient Condition (05/26/25 15:09) Allergies (05/26/25 15:09) Hydrocodone-Acet 5/325mg Tab ([place] 5/32 (05/26/25 15:15) Hydromorphone Injection (Dilaudid Inject (05/26/25 15:15) Ondansetron Hcl (Zofran) (05/26/25 15:15) Glucose Blood (Accu-Chek Comfort Curve T (05/26/25 17:00) Insulin R (Human) (Insulin R) (05/26/25 17:00) Dextrose 50% Syringe (05/26/25 15:15) Isolation Order (05/26/25 15:09) Get List Of Home Medications (05/26/25 15:11) Hydralazine Injection (Apresoline Inject (05/26/25 15:15) Complete Blood Count (05/27/25 05:00) Complete Blood Count (05/28/25 05:00) Complete Blood Count (05/29/25 05:00) Complete Blood Count (05/30/25 05:00) Complete Blood Count (05/31/25 05:00) Comprehensive Metabolic Panel (05/27/25 05:00) Comprehensive Metabolic Panel (05/28/25 05:00) Comprehensive Metabolic Panel (05/29/25 05:00) Comprehensive Metabolic Panel (05/30/25 05:00) Comprehensive Metabolic Panel (05/31/25 05:00) Magnesium (05/27/25 05:00) Magnesium (05/28/25 05:00) Magnesium (05/29/25 05:00) Magnesium (05/30/25 05:00) Magnesium (05/31/25 05:00) Vital Signs Date Time Temp Pulse Resp B/P (MAP) Pulse Ox O2 Delivery O2 Flow Rate FiO2 05/26/25 13:42 94 24 96 Room Air* 0 21 05/26/25 13:42 94 24 189/92 (124) 96 05/26/25 13:33 96 05/26/25 13:14 98.1 89 18 194/110 98 98.1 Laboratory Tests Test 05/26/25 13:43 White Blood Count 7.4 10^3/uL (4.4-10.8) Medications Medications Dose Ordered Sig/Thaddeus Route Start Time Stop Time Status Last Admin Dose Admin Albuterol 20 mg ONCE ONCE NEB 05/26/25 15:00 05/26/25 15:03 DC 05/26/25 15:11 Results Labs Test 05/26/25 13:44 05/26/25 13:43 Range/Units Urine Color Light-yellow Yellow Urine Clarity Clear Clear Urine pH 6.5 5.0-9.0 Urine Specific [place] 1.014 1.001-1.035 Urine Protein 3+ H Negative Urine Ketones Negative Negative Urine Blood 1+ H Negative /uL Urine Nitrite Negative Negative Urine Bilirubin Negative Negative Urine Urobilinogen Normal Negative mg/dL Urine Leukocyte Esterase Negative Negative /uL Urine RBC 2 0 - 4 /hpf Urine Microscopic WBC 3 0-5 /HPF Urine Squamous Epithelial Cells Few <5 /hpf Urine Bacteria Few H None Seen /hpf Urine Glucose 4+ H Normal mg/dL White Blood Count 7.4 4.4-10.8 10^3/uL Red Blood Count 3.34 L 4.0-5.20 10^6/uL Hemoglobin 8.5 L 12.2-16.2 g/dL Hematocrit 27.5 L 36.0-46.0 % Mean Corpuscular Volume 82.4 80.0-100.0 fL Mean Corpuscular Hemoglobin 25.4 L 28.0-32.0 pg Mean Corpuscular Hemoglobin Concent 30.8 L 32.0-36.0 g/dL Red Cell Distribution Width 16.6 H 11.8-14.3 % Platelet Count 313 140-450 10^3/uL Mean Platelet Volume 7.7 6.9-10.8 fL Neutrophils (%) (Auto) 74.0 37.0-80.0 % Lymphocytes (%) (Auto) 16.8 10.0-50.0 % Monocytes (%) (Auto) 6.5 0.0-12.0 % Eosinophils (%) (Auto) 2.1 0.0-7.0 % Basophils (%) (Auto) 0.6 0.0-2.0 % Neutrophils # (Auto) 5.5 1.6-8.6 10 ^3/uL Lymphocytes # (Auto) 1.2 0.4-5.4 10 ^3/uL Monocytes # (Auto) 0.5 0-1.3 10 ^3/uL Eosinophils # (Auto) 0.2 0-0.8 10 ^3/uL Basophils # (Auto) 0 0-0.2 10 ^3/uL Nucleated Red Blood Cells 0.1 % Prothrombin Time 10.8 9.3-11.8 sec Prothrombin Time INR 1.02 0.9-1.15 Activated Partial Thromboplast Time 24.5 24.5-34.5 SEC Sodium Level 139 136-145 mmol/L Potassium Level 5.9 *H 3.5-5.1 mmol/L Chloride Level 115 H 98-107 mmol/L Carbon Dioxide Level 15 L 20-31 mmol/L Anion Gap 9 5-15 Blood Urea Nitrogen 44 H 9-23 mg/dL Creatinine 6.14 H 0.550-1.02 mg/dL Glomerular Filtration Rate Calc 8 >90 mL/min BUN/Creatinine Ratio 7.2 L 10.0-20.0 Serum Glucose 185 H 74-106 mg/dL Calcium Level 7.7 L 8.7-10.4 mg/dL Phosphorus Level 6.6 H 2.4-5.1 mg/dL Magnesium Level 1.5 L 1.6-2.6 mg/dL Primary Diagnosis Hyperkalemia End-stage renal disease hypomagnesemia hyperphosphatemia Plan Per technical service specialist want to initial hemodialysis on this admission. IR consulted for hemodialysis tunnel catheter npo Resume renal diet after tunnel catheter hyperkalemia protocol Magnesium repleted nephrology consulted. follow up with further rec Medications reconciliation ordered Insulin sliding scale for fingerstick goal 140-180 Hydralazine p.r.n. ordered for SBP more than one Full code npo for now. start renal diet after HD cath placement SCD for dvt ppx Plan discussed with: Patient Problems List: (1) Hyperkalemia (2) ESRD (end stage renal disease) Date of Service: May 26, 2025 Billing Provider: TERRENCE DIGGS MD Common Visit Codes: [id number] INP/OBS CARE (HIGH) TERRENCE DIGGS MD May 26, 2025 15:01
[2025-05-26] MEDS: ALBUTEROL SULF 2.5 MG/0.5ML(0.5%) NEB SOLN NEB ONE (15:11)
[2025-05-26] MEDS ORDERED: HYDROmorphone HCL 2 MG/ML VL/or syr IV PRN (15:15)
[2025-05-26] MEDS ORDERED: DOCUSATE SOD 100 MG CAP PO PRN (15:15)
[2025-05-26] MEDS ORDERED: DEXTROSE (50%) 50ML SYRG IV PRN (15:15)
[2025-05-26] MEDS: DEXTROSE (50%) 50ML SYRG IV ONE (15:49)
[2025-05-26] MEDS: MAGNESIUM SULFATE 1GM/100ML 100 ML IV SCH (15:49)
[2025-05-26] MEDS: InsuLIN REG 1unit/0.01ml Soln (100units/ml) IV ONE (15:50)
[2025-05-26] MEDS: SODIUM ZIRCONIUM CYCL 10 GM PAK PO ONE (15:51)
--- NOTE | 2025-05-26 15:54 | ECG ---
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
[2025-05-26] MEDS: hydrALAZINE HCL 20 MG/ML VL IV PRN (16:23)
[2025-05-26] MEDS: ACETAMINOPHEN 325 MG TAB PO PRN (16:23)
[2025-05-26] MEDS: InsuLIN REG 1unit/0.01ml Soln (100units/ml) SC SCH (17:55)
[2025-05-26] MEDS: ACCU-CHEK COMFORT CURVE STRIP VI SCH (17:55)
[2025-05-26] MEDS: LABETALOL HCL 20 MG/4 ML VL IV ONE (17:58)
[2025-05-26 19:15] VITALS: PULSE 95; RESP 15; O2SAT 95
[2025-05-26] MEDS: SODIUM CHLOR 0.9% PF (SALINE LOCK) 10ML VIAL/SYR IV SCH (22:43)
[2025-05-26] MEDS: METOPROLOL TARTRATE 50 MG TAB PO SCH (22:49)
[2025-05-27] VITALS (12 sets, daily range): BP systolic 126–178; BP diastolic 70–105; PULSE 80–97; RESP 14–18; TEMP 97.1–98.5; O2SAT 95–98
[2025-05-27 06:43] LABS: Hemoglobin 8.1 g/dL (12.2-16.2); Nucleated Red Blood Cells % 0.1 %
[2025-05-27 06:46] LABS: Hematocrit 25.3 % (36.0-46.0); Mean Corpuscular Hemoglobin 25.7 pg (28.0-32.0); Mean Corpuscular Volume 80.0 fL (80.0-100.0)
[2025-05-27 07:06] LABS: Alanine Aminotransferase 11 U/L (7-40); Anion Gap 10 (5-15); BUN/Creatinine Ratio 9.5 (10.0-20.0); Magnesium 1.8 mg/dL (1.6-2.6); Sodium 142 mmol/L (136-145)
[2025-05-27 07:07] LABS: Albumin 2.7 g/dL (3.2-4.8); Alkaline Phosphatase 145 U/L (46-116); Bilirubin, Total 0.3 mg/dL (0.2-1.0); Blood Urea Nitrogen 60 mg/dL (9-23); Calcium 7.7 mg/dL (8.7-10.4); Carbon Dioxide 16 mmol/L (20-31); Chloride 116 mmol/L (98-107); Glucose 108 mg/dL (74-106); Potassium 5.3 mmol/L (3.5-5.1); Total Protein 5.6 g/dL (5.7-8.2)
[2025-05-27 10:00] LABS: Hepatitis B Surface Antigen Negative (Negative)
[2025-05-27] MEDS: HEPARIN SODIUM (PORCINE) 5000 UNITS/ML 1ML VIAL ONE (10:09)
[2025-05-27] MEDS: fentaNYL CITRATE 100 MCG/2 ML VL ONE (10:09)
[2025-05-27] MEDS: MIDAZOLAM HCL 2MG/2ML 2ml VIAL (1mg/ml) ONE (10:10)
[2025-05-27] MEDS: LIDOCAINE 2%HCL (LOCAL ANESTH.) INJ 20ML MDV ONE (10:10)
[2025-05-27 10:22] LABS: Hepatitis C Antibody Negative (Negative)
--- NOTE | 2025-05-27 10:26 | DVHINCON2 ---
Date of service: May 27, [address] Paramjit Melvin Reason for Consultation Chronic kidney disease stage 5 History of Present Illness This is a 40-year-old female with history of Chronic kidney disease stage 5 who was sent into the emergency room for initiation of dialysis. She was in the process of undergoing PD catheter placement but was noncompliant with her outpatient appointments with the surgeon. Did obtain cardiac clearance for the same. Patient noticed increased swelling to bilateral lower extremities with gain of about 45 lb in the past three weeks. Patient was on diuretics at home with no improvement in her symptoms. Nephrology has been consulted for initiation of dialysis. Patient scheduled to undergo tunneled catheter placement today. Past Medical History Chronic kidney disease stage five Hypertension Past Surgical History Denies Family History: Patient reports no known family medical history. Family History Noncontributory Social History Patient is an ex drug abuser Allergies: Coded Allergies: Hydromorphone (Verified Allergy, Intermediate, 10/22/24) Penicillins (Verified Allergy, Unknown, 10/22/24) Home Meds No Active Prescriptions or Reported Meds Current Medications Current Medications Medications (Trade) Dose Ordered Sig/Thaddeus Route PRN Reason Start Time Stop Time Status Last Admin Magnesium Sulfate/ Dextrose 100 ml @ 100 mls/hr Q1H IV 05/26/25 15:00 05/26/25 16:59 DC 05/26/25 16:49 Sodium Chloride (Saline Lock Ns) 10 ml Q8HR IV 05/26/25 22:00 05/27/25 06:16 Docusate Sodium (Colace Capsule) 100 mg BIDPRN PRN PO FOR CONSTIPATION 05/26/25 15:15 Acetaminophen (Tylenol Tablet) 650 mg Q6HP PRN PO PAIN SCALE 1-3 OR TEMP>100.4 05/26/25 15:15 05/26/25 16:23 Acetaminophen/ Hydrocodone Bitart ([place] 5/325MG Tab) 1 tab Q4HP PRN PO MODERATE PAIN (4-6 PAIN SCALE) 05/26/25 15:15 Hold Hydromorphone HCl (Dilaudid Injection) 0.5 mg Q4HP PRN IV SEVERE PAIN (7-10 PAIN SCALE) 05/26/25 15:15 Hold Ondansetron HCl (Zofran) 4 mg Q4HP PRN IV NAUSEA / VOMITING 05/26/25 15:15 Diagnostic Test (Pha) (Accu-Chek Comfort Curve T) 1 strip ACHS 05/26/25 17:00 05/27/25 06:20 Insulin Human Regular (InsuLIN R) ACHS SC 05/26/25 17:00 05/26/25 22:47 Dextrose 50 ml UD PRN IV Blood Sugar LESS THAN 60 05/26/25 15:15 Hydralazine HCl (Apresoline Injection) 10 mg Q6H PRN IV SBP > 165 05/26/25 15:15 05/26/25 16:23 Hydralazine HCl (Apresoline Tablet) 50 mg Q8HR PO 05/26/25 22:00 05/27/25 06:19 Amlodipine Besylate (Norvasc Tablet) 10 mg DAILY PO 05/27/25 10:00 Metoprolol Tartrate (Lopressor Tablet) 50 mg BID PO 05/26/25 22:00 05/26/25 22:49 Review of Systems 12 point review of system negative except as stated in the HPI Vital Signs Vital Signs Date Time Temp Pulse Resp B/P (MAP) Pulse Ox O2 Delivery O2 Flow Rate FiO2 05/27/25 09:00 98.5 81 18 126/70 (88) 95 98.5 05/27/25 01:39 Room Air* 0 21 Physical Exam Awake alert oriented x3 HEENT: Normocephalic, no JVD, periorbital edema present Lungs: Diminished breath sounds at bases CVS: S1, S2 regular rate rhythm Abdomen: Distended NOTCH GRINDER: No focal deficits Extremities: 2+ edema Labs/Diagnostic Data Labs Test 05/27/25 06:29 05/27/25 06:25 05/26/25 13:44 05/26/25 13:43 Range/Units White Blood Count 7.5 4.4-10.8 10^3/uL Red Blood Count 3.16 L 4.0-5.20 10^6/uL Hemoglobin 8.1 L 12.2-16.2 g/dL Hematocrit 25.3 L 36.0-46.0 % Mean Corpuscular Volume 80.0 80.0-100.0 fL Mean Corpuscular Hemoglobin 25.7 L 28.0-32.0 pg Mean Corpuscular Hemoglobin Concent 32.2 32.0-36.0 g/dL Red Cell Distribution Width 16.2 H 11.8-14.3 % Platelet Count 309 140-450 10^3/uL Mean Platelet Volume 7.5 6.9-10.8 fL Neutrophils (%) (Auto) 73.1 37.0-80.0 % Lymphocytes (%) (Auto) 18.1 10.0-50.0 % Monocytes (%) (Auto) 6.4 0.0-12.0 % Eosinophils (%) (Auto) 1.7 0.0-7.0 % Basophils (%) (Auto) 0.7 0.0-2.0 % Neutrophils # (Auto) 5.4 1.6-8.6 10 ^3/uL Lymphocytes # (Auto) 1.3 0.4-5.4 10 ^3/uL Monocytes # (Auto) 0.5 0-1.3 10 ^3/uL Eosinophils # (Auto) 0.1 0-0.8 10 ^3/uL Basophils # (Auto) 0.1 0-0.2 10 ^3/uL Nucleated Red Blood Cells 0.1 % Sodium Level 142 136-145 mmol/L Potassium Level 5.3 H 3.5-5.1 mmol/L Chloride Level 116 H 98-107 mmol/L Carbon Dioxide Level 16 L 20-31 mmol/L Anion Gap 10 5-15 Blood Urea Nitrogen 60 #H 9-23 mg/dL Creatinine 6.33 H 0.550-1.02 mg/dL Glomerular Filtration Rate Calc 8 >90 mL/min BUN/Creatinine Ratio 9.5 L 10.0-20.0 Serum Glucose 108 H 74-106 mg/dL Calcium Level 7.7 L 8.7-10.4 mg/dL Magnesium Level 1.8 1.6-2.6 mg/dL Total Bilirubin 0.3 0.2-1.0 mg/dL Aspartate Amino Transferase (AST) 9 L 13-40 U/L Alanine Aminotransferase (ALT) 11 7-40 U/L Alkaline Phosphatase 145 H 46-116 U/L Total Protein 5.6 L 5.7-8.2 g/dL Albumin 2.7 L 3.2-4.8 g/dL POC Glucose 116 H 70-106 mg/dl Urine Color Light-yellow Yellow Urine Clarity Clear Clear Urine pH 6.5 5.0-9.0 Urine Specific [place] 1.014 1.001-1.035 Urine Protein 3+ H Negative Urine Ketones Negative Negative Urine Blood 1+ H Negative /uL Urine Nitrite Negative Negative Urine Bilirubin Negative Negative Urine Urobilinogen Normal Negative mg/dL Urine Leukocyte Esterase Negative Negative /uL Urine RBC 2 0 - 4 /hpf Urine Microscopic WBC 3 0-5 /HPF Urine Squamous Epithelial Cells Few <5 /hpf Urine Bacteria Few H None Seen /hpf Urine Glucose 4+ H Normal mg/dL Prothrombin Time 10.8 9.3-11.8 sec Prothrombin Time INR 1.02 0.9-1.15 Activated Partial Thromboplast Time 24.5 24.5-34.5 SEC Phosphorus Level 6.6 H 2.4-5.1 mg/dL Hepatitis B Surface Antigen Negative Negative Hepatitis B Surface Antibody Positive H Negative Assessment End-stage kidney disease Hyperkalemia Chronic metabolic acidosis Hypertension Anemia in Chronic kidney disease Proteinuria Plan/Recommendation Patient is scheduled to have tunneled catheter placed today. Patient will undergo dialysis today. Epogen with dialysis. We will schedule another session of dialysis tomorrow. workshop manager consulted for outpatient chair time at [facility]. Hepatitis panel. Plan discussed with: Patient MARCELA TREJO MD May 27, 2025 10:26
[2025-05-27] MEDS: SODIUM CHL 0.9% 1000 ML BAG XX ONE (10:30)
--- NOTE | 2025-05-27 12:55 | DVH ---
XY Insertion of Venous Cath, HISTORY: TUNNELED DIALYSIS CATH INSERTION PROCEDURE: Informed consent was obtained. The patient was placed supine on the interventional table. A limited localization ultrasound of the right neck was obtained. The right neck base and upper chest were prepped with chlorhexidine which was allowed to dry and draped in the usual sterile fashion. Time out was performed. IV sedation was administered. The skin and the soft tissues were infiltrated with 1% Lidocaine mixed with Epinephrine. With real-time ultrasound guidance, the internal jugular vein was accessed with a micropuncture kit, and an image documenting patency was recorded to PACS. A subcutaneous tunneled tract was created from the right upper chest to the venotomy site. A 15.5 Salv[place] 19 cm long hemodialysis catheter was advanced through the tunneled tract. Fluoroscopy was used to advance a guidewire through the internal jugular vein into the inferior vena cava. Following serial dilatation, a 15 Salv[place]orean peel-away sheath was introduced, though which was advanced the catheter into the right atrium. The catheter tip position was confirmed with fluoroscopy. There was satisfactory flow in both lumens. The catheter lumens were flushed with saline and heparin was left indwelling in the catheter. A post-procedure image of the chest was obtained. The neck incision site was closed with a Vicryl suture and dressed sterilely. The catheter was sutured at the skin surface and exit site also dressed sterilely. No immediate complication was identified. FLUOROSCOPY TIME: 0.5 minutes. DAP:141.72 SEDATION: Dr. Sow was personally responsible for the administration of moderate sedation during the procedure performed, including the use of an independent trained observer who had no other duties during the procedure. The drugs utilized were IV fentanyl and versed (see nursing log for details). The total time of supervision by the attending physician was approximately 15 minutes. FINDINGS: Widely patent right IJ. Post procedure image demonstrates smooth course of the hemodialysis catheter with the tip in the right atrium. IMPRESSION: 1. Successful placement of 15.5 welsh brand, 19 cm long hemodialysis catheter through right internal jugular/vein. Plan: Please contact IR for removal when no longer needed.
[2025-05-27] MEDS: ONDANSETRON HCL 4 MG/2 ML VIAL IV PRN (21:32)
[2025-05-27] MEDS: EPOETIN ALFA-EPBX 4,000 UNIT/ML VIAL SC ONE (21:34)
[2025-05-28] VITALS (8 sets, daily range): BP systolic 99–174; BP diastolic 54–99; PULSE 67–83; RESP 15–18; TEMP 97.4–98.3; O2SAT 90–96
[2025-05-28 06:04] LABS: COVID19 ANTIGEN SOFIA FIA NEGATIVE (NEGATIVE)
[2025-05-28 06:26] LABS: Hematocrit 23.8 % (36.0-46.0); Hemoglobin 7.4 g/dL (12.2-16.2); Mean Corpuscular Hemoglobin 25.1 pg (28.0-32.0); Mean Corpuscular Volume 80.8 fL (80.0-100.0); Nucleated Red Blood Cells % 0.0 %
[2025-05-28 06:52] LABS: Anion Gap 9 (5-15); BUN/Creatinine Ratio 7.4 (10.0-20.0); Bilirubin, Total 0.4 mg/dL (0.2-1.0); Carbon Dioxide 24 mmol/L (20-31); Magnesium 1.7 mg/dL (1.6-2.6); Potassium 4.4 mmol/L (3.5-5.1); Sodium 142 mmol/L (136-145)
[2025-05-28 06:55] LABS: Alanine Aminotransferase < 9 U/L (7-40); Albumin 2.4 g/dL (3.2-4.8); Alkaline Phosphatase 123 U/L (46-116); Blood Urea Nitrogen 32 mg/dL (9-23); Calcium 7.3 mg/dL (8.7-10.4); Chloride 109 mmol/L (98-107); Glucose 111 mg/dL (74-106); Total Protein 4.8 g/dL (5.7-8.2)
[2025-05-28] MEDS ORDERED: SODIUM CHL 0.9% 1000 ML BAG XX ONE (07:00)
--- NOTE | 2025-05-28 13:33 | DVHPN2 ---
Progress Note - Dictate Date Seen: May 28, 2025 Medical Necessity Reason Pt with a Central, PICC or Fol: No Subjective Underwent HD yesterday Ultrafiltration of 2 L vital signs Vital Sign Date Time Temp Pulse Resp B/P (MAP) Pulse Ox O2 Delivery O2 Flow Rate FiO2 05/28/25 12:44 97.9 82 16 174/99 (124) 93 97.9 05/28/25 08:00 Room Air* 0 21 Total Intake and Output 05/27/25 05/27/25 05/28/25 15:00 23:00 07:00 Intake Total 0 ml 500 ml Balance 0 ml 500 ml medications Current Medications Medications Dose Ordered Sig/Thaddeus Route Start Time Stop Time Status Last Admin Dose Admin Sodium Chloride 10 ml Q8HR IV 05/26/25 22:00 05/28/25 06:44 10 ML Docusate Sodium 100 mg BIDPRN PRN PO 05/26/25 15:15 Acetaminophen 650 mg Q6HP PRN PO 05/26/25 15:15 05/26/25 16:23 650 MG Acetaminophen/ Hydrocodone Bitart 1 tab Q4HP PRN PO 05/26/25 15:15 Hydromorphone HCl 0.5 mg Q4HP PRN IV 05/26/25 15:15 Hold Ondansetron HCl 4 mg Q4HP PRN IV 05/26/25 15:15 05/28/25 11:28 4 MG Diagnostic Test (Pha) 1 strip ACHS 05/26/25 17:00 05/28/25 11:30 1 STRIP Insulin Human Regular ACHS SC 05/26/25 17:00 05/27/25 22:06 2 UNITS Dextrose 50 ml UD PRN IV 05/26/25 15:15 Hydralazine HCl 10 mg Q6H PRN IV 05/26/25 15:15 05/26/25 16:23 10 MG Hydralazine HCl 50 mg Q8HR PO 05/26/25 22:00 05/27/25 21:30 50 MG Amlodipine Besylate 10 mg DAILY PO 05/27/25 10:00 05/27/25 17:11 10 MG Metoprolol Tartrate 50 mg BID PO 05/26/25 22:00 05/28/25 12:36 50 MG objective Awake alert oriented x3 HEENT: Normocephalic, no JVD, periorbital edema present Lungs: Diminished breath sounds at bases CVS: S1, S2 regular rate rhythm Abdomen: Distended SHOT TUBE MACHINE TENDER: No focal deficits Extremities: 2+ edema laboratory and microbiology Laboratory Tests 05/28/25 05:06 Test 05/28/25 05:06 Range/Units Serum Glucose 111 H 74-106 mg/dL Problem List End-stage kidney disease Hyperkalemia Chronic metabolic acidosis Hypertension Anemia in Chronic kidney disease Proteinuria Assessment/Plan Dialyzed yesterday . HD in AM . Awaiting outpatient HD chair time Plan discussed with: Patient MARCELA TREJO MD May 28, 2025 13:33
[2025-05-28] MEDS: EPOETIN ALFA-EPBX 4,000 UNIT/ML VIAL SC ONE (23:12)
[2025-05-29] VITALS (9 sets, daily range): BP systolic 127–141; BP diastolic 70–86; PULSE 66–80; RESP 15–18; TEMP 97–98.3; O2SAT 90–97
[2025-05-29 07:01] LABS: Nucleated Red Blood Cells % 0.1 %
[2025-05-29 07:04] LABS: Hematocrit 23.2 % (36.0-46.0); Hemoglobin 7.4 g/dL (12.2-16.2); Mean Corpuscular Hemoglobin 25.3 pg (28.0-32.0); Mean Corpuscular Volume 79.6 fL (80.0-100.0)
[2025-05-29 07:22] LABS: Anion Gap 7 (5-15); BUN/Creatinine Ratio 6.1 (10.0-20.0); Blood Urea Nitrogen 20 mg/dL (9-23); Carbon Dioxide 30 mmol/L (20-31); Chloride 104 mmol/L (98-107); Magnesium 1.7 mg/dL (1.6-2.6); Potassium 4.1 mmol/L (3.5-5.1); Sodium 141 mmol/L (136-145)
[2025-05-29 07:36] LABS: Alkaline Phosphatase 147 U/L (46-116); Glucose 143 mg/dL (74-106)
[2025-05-29 07:37] LABS: Alanine Aminotransferase < 9 U/L (7-40); Albumin 2.5 g/dL (3.2-4.8); Bilirubin, Total 0.2 mg/dL (0.2-1.0); Calcium 7.4 mg/dL (8.7-10.4); Total Protein 5.0 g/dL (5.7-8.2)
--- NOTE | 2025-05-29 20:12 | DVHPN2 ---
Progress Note - Dictate Date Seen: May 29, 2025 Medical Necessity Reason Pt with a Central, PICC or Fol: No Subjective Underwent HD yesterday Ultrafiltration of 2 L vital signs Vital Sign Date Time Temp Pulse Resp B/P (MAP) Pulse Ox O2 Delivery O2 Flow Rate FiO2 05/29/25 17:31 141/84 05/29/25 16:45 98.0 71 17 93 98.0 05/29/25 08:05 Room Air* 0 21 Total Intake and Output 05/28/25 05/28/25 05/29/25 15:00 23:00 07:00 Intake Total 800 ml 500 ml Balance 800 ml 500 ml medications Current Medications Medications Dose Ordered Sig/Thaddeus Route Start Time Stop Time Status Last Admin Dose Admin Sodium Chloride 10 ml Q8HR IV 05/26/25 22:00 05/29/25 14:00 10 ML Docusate Sodium 100 mg BIDPRN PRN PO 05/26/25 15:15 Acetaminophen 650 mg Q6HP PRN PO 05/26/25 15:15 05/26/25 16:23 650 MG Acetaminophen/ Hydrocodone Bitart 1 tab Q4HP PRN PO 05/26/25 15:15 Hydromorphone HCl 0.5 mg Q4HP PRN IV 05/26/25 15:15 Hold Ondansetron HCl 4 mg Q4HP PRN IV 05/26/25 15:15 05/29/25 09:52 4 MG Diagnostic Test (Pha) 1 strip ACHS 05/26/25 17:00 05/29/25 17:00 1 STRIP Insulin Human Regular ACHS SC 05/26/25 17:00 05/29/25 17:00 3 UNITS Dextrose 50 ml UD PRN IV 05/26/25 15:15 Hydralazine HCl 10 mg Q6H PRN IV 05/26/25 15:15 05/28/25 14:55 10 MG Hydralazine HCl 50 mg Q8HR PO 05/26/25 22:00 05/29/25 17:31 50 MG Amlodipine Besylate 10 mg DAILY PO 05/27/25 10:00 05/29/25 09:49 10 MG Metoprolol Tartrate 50 mg BID PO 05/26/25 22:00 05/29/25 09:50 50 MG objective Awake alert oriented x3 HEENT: Normocephalic, no JVD, periorbital edema present Lungs: Diminished breath sounds at bases CVS: S1, S2 regular rate rhythm Abdomen: Distended STRATEGIC INSIGHTS LEAD: No focal deficits Extremities: 2+ edema laboratory and microbiology Laboratory Tests 05/29/25 06:28 Test 05/29/25 06:28 Range/Units Serum Glucose 143 H 74-106 mg/dL Problem List End-stage kidney disease Hyperkalemia Chronic metabolic acidosis Hypertension Anemia in Chronic kidney disease Proteinuria Assessment/Plan Dialyzed on Fri and Sat Awaiting outpatient HD chair time Next HD on Plan discussed with: Other MARCELA TREJO MD May 29, 2025 20:12
[2025-05-29] MEDS: HYDROcodone-ACET 5/325MG TAB PO PRN (21:54)
--- NOTE | 2025-05-29 22:23 | DVHPN2 ---
Reviewed: Care Plan, H&P, Labs, Medications, Previous Orders, Radiology Changes from previous H/P or p: No Changes General: Per HPI Objective Vitals Vital Signs Date Time Temp Pulse Resp B/P (MAP) Pulse Ox O2 Delivery O2 Flow Rate FiO2 05/29/25 21:53 73 127/70 05/29/25 21:00 98.3 18 97 98.3 05/29/25 19:30 Room Air* 0 21 Intake/Output Intake and Output 05/29/25 07:00 Intake Total 1300 ml Balance 1300 ml Intake Oral 1300 ml # Voids 5 Medications Current Medications Medications Dose Ordered Sig/Thaddeus Route Start Time Stop Time Status Last Admin Dose Admin Sodium Chloride 10 ml Q8HR IV 05/26/25 22:00 05/29/25 21:52 10 ML Docusate Sodium 100 mg BIDPRN PRN PO 05/26/25 15:15 Acetaminophen 650 mg Q6HP PRN PO 05/26/25 15:15 05/26/25 16:23 650 MG Acetaminophen/ Hydrocodone Bitart 1 tab Q4HP PRN PO 05/26/25 15:15 05/29/25 21:54 1 TAB Hydromorphone HCl 0.5 mg Q4HP PRN IV 05/26/25 15:15 Hold Ondansetron HCl 4 mg Q4HP PRN IV 05/26/25 15:15 05/29/25 09:52 4 MG Diagnostic Test (Pha) 1 strip ACHS 05/26/25 17:00 05/29/25 21:54 1 STRIP Insulin Human Regular ACHS SC 05/26/25 17:00 05/29/25 21:53 4 UNITS Dextrose 50 ml UD PRN IV 05/26/25 15:15 Hydralazine HCl 10 mg Q6H PRN IV 05/26/25 15:15 05/28/25 14:55 10 MG Hydralazine HCl 50 mg Q8HR PO 05/26/25 22:00 05/29/25 21:52 50 MG Amlodipine Besylate 10 mg DAILY PO 05/27/25 10:00 05/29/25 09:49 10 MG Metoprolol Tartrate 50 mg BID PO 05/26/25 22:00 05/29/25 21:53 50 MG Laboratory Results Laboratory Tests 05/29/25 06:28 Chemistry Test 05/29/25 06:28 Albumin 2.5 g/dL (3.2-4.8) L Calcium Level 7.4 mg/dL (8.7-10.4) L Magnesium Level 1.7 mg/dL (1.6-2.6) Total Protein 5.0 g/dL (5.7-8.2) L LFT Test 05/29/25 06:28 Alanine Aminotransferase (ALT) < 9 U/L (7-40) Alkaline Phosphatase 147 U/L (46-116) H Aspartate Amino Transferase (AST) 17 U/L (13-40) Total Bilirubin 0.2 mg/dL (0.2-1.0) Urinalysis Test 05/26/25 13:44 Urine Color Light-yellow (Yellow) Urine Clarity Clear (Clear) Urine pH 6.5 (5.0-9.0) Urine Specific [place] 1.014 (1.001-1.035) Urine Protein 3+ (Negative) H Urine Ketones Negative (Negative) Urine Blood 1+ /uL (Negative) H Urine Nitrite Negative (Negative) Urine Bilirubin Negative (Negative) Urine Urobilinogen Normal mg/dL (Negative) Urine Leukocyte Esterase Negative /uL (Negative) Urine RBC 2 /hpf (0 - 4) Urine Microscopic WBC 3 /HPF (0-5) Urine Squamous Epithelial Cells Few /hpf (<5) Urine Bacteria Few /hpf (None Seen) H Urine Glucose 4+ mg/dL (Normal) H Microbiology Microbiology Date/Time Source Procedure Growth Status 05/27/25 13:54 Nose MRSA Screen - Final Complete Labs and/or images reviewed: Labs reviewed by me, Image(s) reviewed by me Assessment/Plan Assessment/Plan 40 y/o F, with PMHx of CKF presents to the ED for CC of abnormal labs. Patient states, she was sent by her nephro for initiation of dialysis d/t elevated potassium and creatinine levels. At this time patient reports, generalized body pain. No other symptoms or modifying factors are reported. Hyperkalemia End-stage renal disease hypomagnesemia hyperphosphatemia started on HD per slot supervisor pending chair time Plan discussed with: Patient Date of Service: May 27, 2025 Billing Provider: CLARITZA SANTIAGO DO Common Visit Codes: [id number] INP/OBS CARE(HIGH) CLARITZA SANTIAGO DO May 29, 2025 22:23
--- NOTE | 2025-05-29 22:25 | DVHPN2 ---
Reviewed: Care Plan, H&P, Labs, Medications, Previous Orders, Radiology Changes from previous H/P or p: No Changes General: Per HPI Objective Vitals Vital Signs Date Time Temp Pulse Resp B/P (MAP) Pulse Ox O2 Delivery O2 Flow Rate FiO2 05/29/25 21:53 73 127/70 05/29/25 21:00 98.3 18 97 98.3 05/29/25 19:30 Room Air* 0 21 Intake/Output Intake and Output 05/29/25 07:00 Intake Total 1300 ml Balance 1300 ml Intake Oral 1300 ml # Voids 5 Medications Current Medications Medications Dose Ordered Sig/Thaddeus Route Start Time Stop Time Status Last Admin Dose Admin Sodium Chloride 10 ml Q8HR IV 05/26/25 22:00 05/29/25 21:52 10 ML Docusate Sodium 100 mg BIDPRN PRN PO 05/26/25 15:15 Acetaminophen 650 mg Q6HP PRN PO 05/26/25 15:15 05/26/25 16:23 650 MG Acetaminophen/ Hydrocodone Bitart 1 tab Q4HP PRN PO 05/26/25 15:15 05/29/25 21:54 1 TAB Hydromorphone HCl 0.5 mg Q4HP PRN IV 05/26/25 15:15 Hold Ondansetron HCl 4 mg Q4HP PRN IV 05/26/25 15:15 05/29/25 09:52 4 MG Diagnostic Test (Pha) 1 strip ACHS 05/26/25 17:00 05/29/25 21:54 1 STRIP Insulin Human Regular ACHS SC 05/26/25 17:00 05/29/25 21:53 4 UNITS Dextrose 50 ml UD PRN IV 05/26/25 15:15 Hydralazine HCl 10 mg Q6H PRN IV 05/26/25 15:15 05/28/25 14:55 10 MG Hydralazine HCl 50 mg Q8HR PO 05/26/25 22:00 05/29/25 21:52 50 MG Amlodipine Besylate 10 mg DAILY PO 05/27/25 10:00 05/29/25 09:49 10 MG Metoprolol Tartrate 50 mg BID PO 05/26/25 22:00 05/29/25 21:53 50 MG Laboratory Results Laboratory Tests 05/29/25 06:28 Chemistry Test 05/29/25 06:28 Albumin 2.5 g/dL (3.2-4.8) L Calcium Level 7.4 mg/dL (8.7-10.4) L Magnesium Level 1.7 mg/dL (1.6-2.6) Total Protein 5.0 g/dL (5.7-8.2) L LFT Test 05/29/25 06:28 Alanine Aminotransferase (ALT) < 9 U/L (7-40) Alkaline Phosphatase 147 U/L (46-116) H Aspartate Amino Transferase (AST) 17 U/L (13-40) Total Bilirubin 0.2 mg/dL (0.2-1.0) Urinalysis Test 05/26/25 13:44 Urine Color Light-yellow (Yellow) Urine Clarity Clear (Clear) Urine pH 6.5 (5.0-9.0) Urine Specific [place] 1.014 (1.001-1.035) Urine Protein 3+ (Negative) H Urine Ketones Negative (Negative) Urine Blood 1+ /uL (Negative) H Urine Nitrite Negative (Negative) Urine Bilirubin Negative (Negative) Urine Urobilinogen Normal mg/dL (Negative) Urine Leukocyte Esterase Negative /uL (Negative) Urine RBC 2 /hpf (0 - 4) Urine Microscopic WBC 3 /HPF (0-5) Urine Squamous Epithelial Cells Few /hpf (<5) Urine Bacteria Few /hpf (None Seen) H Urine Glucose 4+ mg/dL (Normal) H Microbiology Microbiology Date/Time Source Procedure Growth Status 05/27/25 13:54 Nose MRSA Screen - Final Complete Assessment/Plan Assessment/Plan 40 y/o F, with PMHx of CKF presents to the ED for CC of abnormal labs. Patient states, she was sent by her nephro for initiation of dialysis d/t elevated potassium and creatinine levels. At this time patient reports, generalized body pain. No other symptoms or modifying factors are reported. Hyperkalemia End-stage renal disease hypomagnesemia hyperphosphatemia started on HD per reel blade bender furnace tender pending chair time Plan discussed with: Patient Date of Service: May 29, 2025 Billing Provider: CLARITZA SANTIAGO DO Common Visit Codes: [id number] INP/OBS CARE(HIGH) CLARITZA SANTIAGO DO May 29, 2025 22:25
--- NOTE | 2025-05-29 22:25 | DVHPN2 ---
Reviewed: Care Plan, H&P, Labs, Medications, Previous Orders, Radiology Changes from previous H/P or p: No Changes General: Per HPI Objective Vitals Vital Signs Date Time Temp Pulse Resp B/P (MAP) Pulse Ox O2 Delivery O2 Flow Rate FiO2 05/29/25 21:53 73 127/70 05/29/25 21:00 98.3 18 97 98.3 05/29/25 19:30 Room Air* 0 21 Intake/Output Intake and Output 05/29/25 07:00 Intake Total 1300 ml Balance 1300 ml Intake Oral 1300 ml # Voids 5 Medications Current Medications Medications Dose Ordered Sig/Thaddeus Route Start Time Stop Time Status Last Admin Dose Admin Sodium Chloride 10 ml Q8HR IV 05/26/25 22:00 05/29/25 21:52 10 ML Docusate Sodium 100 mg BIDPRN PRN PO 05/26/25 15:15 Acetaminophen 650 mg Q6HP PRN PO 05/26/25 15:15 05/26/25 16:23 650 MG Acetaminophen/ Hydrocodone Bitart 1 tab Q4HP PRN PO 05/26/25 15:15 05/29/25 21:54 1 TAB Hydromorphone HCl 0.5 mg Q4HP PRN IV 05/26/25 15:15 Hold Ondansetron HCl 4 mg Q4HP PRN IV 05/26/25 15:15 05/29/25 09:52 4 MG Diagnostic Test (Pha) 1 strip ACHS 05/26/25 17:00 05/29/25 21:54 1 STRIP Insulin Human Regular ACHS SC 05/26/25 17:00 05/29/25 21:53 4 UNITS Dextrose 50 ml UD PRN IV 05/26/25 15:15 Hydralazine HCl 10 mg Q6H PRN IV 05/26/25 15:15 05/28/25 14:55 10 MG Hydralazine HCl 50 mg Q8HR PO 05/26/25 22:00 05/29/25 21:52 50 MG Amlodipine Besylate 10 mg DAILY PO 05/27/25 10:00 05/29/25 09:49 10 MG Metoprolol Tartrate 50 mg BID PO 05/26/25 22:00 05/29/25 21:53 50 MG Laboratory Results Laboratory Tests 05/29/25 06:28 Chemistry Test 05/29/25 06:28 Albumin 2.5 g/dL (3.2-4.8) L Calcium Level 7.4 mg/dL (8.7-10.4) L Magnesium Level 1.7 mg/dL (1.6-2.6) Total Protein 5.0 g/dL (5.7-8.2) L LFT Test 05/29/25 06:28 Alanine Aminotransferase (ALT) < 9 U/L (7-40) Alkaline Phosphatase 147 U/L (46-116) H Aspartate Amino Transferase (AST) 17 U/L (13-40) Total Bilirubin 0.2 mg/dL (0.2-1.0) Urinalysis Test 05/26/25 13:44 Urine Color Light-yellow (Yellow) Urine Clarity Clear (Clear) Urine pH 6.5 (5.0-9.0) Urine Specific [place] 1.014 (1.001-1.035) Urine Protein 3+ (Negative) H Urine Ketones Negative (Negative) Urine Blood 1+ /uL (Negative) H Urine Nitrite Negative (Negative) Urine Bilirubin Negative (Negative) Urine Urobilinogen Normal mg/dL (Negative) Urine Leukocyte Esterase Negative /uL (Negative) Urine RBC 2 /hpf (0 - 4) Urine Microscopic WBC 3 /HPF (0-5) Urine Squamous Epithelial Cells Few /hpf (<5) Urine Bacteria Few /hpf (None Seen) H Urine Glucose 4+ mg/dL (Normal) H Microbiology Microbiology Date/Time Source Procedure Growth Status 05/27/25 13:54 Nose MRSA Screen - Final Complete Assessment/Plan Assessment/Plan 40 y/o F, with PMHx of CKF presents to the ED for CC of abnormal labs. Patient states, she was sent by her nephro for initiation of dialysis d/t elevated potassium and creatinine levels. At this time patient reports, generalized body pain. No other symptoms or modifying factors are reported. Hyperkalemia End-stage renal disease hypomagnesemia hyperphosphatemia started on HD per real estate sales associate pending chair time Plan discussed with: Patient Date of Service: May 28, 2025 Billing Provider: CLARITZA SANTIAGO DO Common Visit Codes: [id number] INP/OBS CARE(HIGH) CLARITZA SANTIAGO DO May 29, 2025 22:25
[2025-05-30] VITALS (7 sets, daily range): BP systolic 116–149; BP diastolic 67–88; PULSE 64–77; RESP 15–17; TEMP 97.8–98.2; O2SAT 90–96
[2025-05-30 06:29] LABS: Hematocrit 24.0 % (36.0-46.0); Hemoglobin 7.6 g/dL (12.2-16.2); Mean Corpuscular Hemoglobin 25.5 pg (28.0-32.0); Mean Corpuscular Volume 80.3 fL (80.0-100.0); Nucleated Red Blood Cells % 0.1 %
[2025-05-30 07:02] LABS: Alanine Aminotransferase 14 U/L (7-40); Anion Gap 9 (5-15); BUN/Creatinine Ratio 6.9 (10.0-20.0); Carbon Dioxide 26 mmol/L (20-31); Chloride 103 mmol/L (98-107); Magnesium 1.9 mg/dL (1.6-2.6); Potassium 4.6 mmol/L (3.5-5.1); Sodium 138 mmol/L (136-145)
[2025-05-30 07:21] LABS: Albumin 2.4 g/dL (3.2-4.8); Alkaline Phosphatase 168 U/L (46-116); Bilirubin, Total 0.2 mg/dL (0.2-1.0); Blood Urea Nitrogen 28 mg/dL (9-23); Calcium 7.2 mg/dL (8.7-10.4); Glucose 110 mg/dL (74-106); Total Protein 5.1 g/dL (5.7-8.2)
--- NOTE | 2025-05-30 14:07 | DVHPN2 ---
Subjective Patient denies any symptoms at this time Reviewed: Care Plan, H&P, Labs, Medications, Previous Orders, Radiology Changes from previous H/P or p: No Changes General: Per HPI Objective Vitals Vital Signs Date Time Temp Pulse Resp B/P (MAP) Pulse Ox O2 Delivery O2 Flow Rate FiO2 05/30/25 13:14 69 149/88 05/30/25 08:59 97.9 17 94 97.9 05/29/25 19:30 Room Air* 0 21 Intake/Output Intake and Output 05/30/25 07:00 Intake Total 930 ml Balance 930 ml Intake Oral 930 ml # Voids 8 # Bowel Movements 2 General Appearance: Alert, Oriented X3, Cooperative, mild distress HEENT: Atraumatic, PERRLA Lungs: Clear to auscultation, Normal air movement Cardiovascular: Normal S1, Normal S2 Abdomen: Normal bowel sounds, Soft, No tenderness, No hepatospenomegaly Musculoskeletal: Normal sensory function, Normal motor function Neuro: Normal speech Skin: Dry, Intact Psych/Mental Status: Mental status NL, Mood NL Medications Current Medications Medications Dose Ordered Sig/Thaddeus Route Start Time Stop Time Status Last Admin Dose Admin Sodium Chloride 10 ml Q8HR IV 05/26/25 22:00 05/30/25 06:04 10 ML Docusate Sodium 100 mg BIDPRN PRN PO 05/26/25 15:15 Acetaminophen 650 mg Q6HP PRN PO 05/26/25 15:15 05/26/25 16:23 650 MG Acetaminophen/ Hydrocodone Bitart 1 tab Q4HP PRN PO 05/26/25 15:15 05/30/25 06:01 1 TAB Hydromorphone HCl 0.5 mg Q4HP PRN IV 05/26/25 15:15 Hold Ondansetron HCl 4 mg Q4HP PRN IV 05/26/25 15:15 05/30/25 08:38 4 MG Diagnostic Test (Pha) 1 strip ACHS 05/26/25 17:00 05/30/25 06:04 1 STRIP Insulin Human Regular ACHS SC 05/26/25 17:00 05/29/25 21:53 4 UNITS Dextrose 50 ml UD PRN IV 05/26/25 15:15 Hydralazine HCl 10 mg Q6H PRN IV 05/26/25 15:15 05/28/25 14:55 10 MG Hydralazine HCl 50 mg Q8HR PO 05/26/25 22:00 05/30/25 06:00 50 MG Amlodipine Besylate 10 mg DAILY PO 05/27/25 10:00 05/30/25 12:00 10 MG Metoprolol Tartrate 50 mg BID PO 05/26/25 22:00 05/30/25 12:01 50 MG Laboratory Results Laboratory Tests 05/30/25 05:19 Chemistry Test 05/30/25 05:19 Albumin 2.4 g/dL (3.2-4.8) L Calcium Level 7.2 mg/dL (8.7-10.4) L Magnesium Level 1.9 mg/dL (1.6-2.6) Total Protein 5.1 g/dL (5.7-8.2) L LFT Test 05/30/25 05:19 Alanine Aminotransferase (ALT) 14 U/L (7-40) Alkaline Phosphatase 168 U/L (46-116) H Aspartate Amino Transferase (AST) 19 U/L (13-40) Total Bilirubin 0.2 mg/dL (0.2-1.0) Urinalysis Test 05/26/25 13:44 Urine Color Light-yellow (Yellow) Urine Clarity Clear (Clear) Urine pH 6.5 (5.0-9.0) Urine Specific [place] 1.014 (1.001-1.035) Urine Protein 3+ (Negative) H Urine Ketones Negative (Negative) Urine Blood 1+ /uL (Negative) H Urine Nitrite Negative (Negative) Urine Bilirubin Negative (Negative) Urine Urobilinogen Normal mg/dL (Negative) Urine Leukocyte Esterase Negative /uL (Negative) Urine RBC 2 /hpf (0 - 4) Urine Microscopic WBC 3 /HPF (0-5) Urine Squamous Epithelial Cells Few /hpf (<5) Urine Bacteria Few /hpf (None Seen) H Urine Glucose 4+ mg/dL (Normal) H Microbiology Microbiology Date/Time Source Procedure Growth Status 05/27/25 13:54 Nose MRSA Screen - Final Complete Labs and/or images reviewed: Labs reviewed by me, Image(s) reviewed by me Assessment/Plan Assessment/Plan Impression: -ESRD with new onset of hemodialysis -hyperkalemia -diabetes mellitus -primary hypertension -obesity Plan: -patient had tunneled dialysis catheter with two treatments less far. Awaiting outpatient hemodialysis chair time -continue antihypertensives -regular insulin sliding scale -check hemoglobin A1c -discharge once patient has a established chair time. Total time spent with patient discussing and formulating plan of care: 35 minutes. This medical document was created using an electronic medical record system with [employer] dictation system. Although this document has been carefully reviewed, there may still be some phonetic and typographical errors. These areas are purely typographical due to imperfections of the software programs, and do not reflect any compromise in the patient's medical care. Plan discussed with: Patient, Other (RN) My Orders Orders - IMELDA NARAYANAN NP Procedure Category Date Status Time Hemoglobin A1c LAB 05/30/25 Verified 14:05 Date of Service: May 30, 2025 Billing Provider: IMELDA NARAYANAN NP Common Visit Codes: [id number] INP/OBS CARE(HIGH) IMELDA NARAYANAN NP May 30, 2025 14:07
--- NOTE | 2025-05-30 16:37 | DVHPN2 ---
Progress Note - Dictate Date Seen: May 30, 2025 Medical Necessity Reason Pt with a Central, PICC or Fol: No Subjective no new symptoms vital signs Vital Sign Date Time Temp Pulse Resp B/P (MAP) Pulse Ox O2 Delivery O2 Flow Rate FiO2 05/30/25 15:06 144/88 05/30/25 13:14 69 05/30/25 08:59 97.9 17 94 97.9 05/30/25 08:00 Room Air* 0 21 Total Intake and Output 05/29/25 05/29/25 05/30/25 15:00 23:00 07:00 Intake Total 300 ml 630 ml Balance 300 ml 630 ml medications Current Medications Medications Dose Ordered Sig/Thaddeus Route Start Time Stop Time Status Last Admin Dose Admin Sodium Chloride 10 ml Q8HR IV 05/26/25 22:00 05/30/25 06:04 10 ML Docusate Sodium 100 mg BIDPRN PRN PO 05/26/25 15:15 Acetaminophen 650 mg Q6HP PRN PO 05/26/25 15:15 05/26/25 16:23 650 MG Acetaminophen/ Hydrocodone Bitart 1 tab Q4HP PRN PO 05/26/25 15:15 05/30/25 06:01 1 TAB Hydromorphone HCl 0.5 mg Q4HP PRN IV 05/26/25 15:15 Hold Ondansetron HCl 4 mg Q4HP PRN IV 05/26/25 15:15 05/30/25 08:38 4 MG Diagnostic Test (Pha) 1 strip ACHS 05/26/25 17:00 05/30/25 11:30 1 STRIP Insulin Human Regular ACHS SC 05/26/25 17:00 05/30/25 11:30 3 UNITS Dextrose 50 ml UD PRN IV 05/26/25 15:15 Hydralazine HCl 10 mg Q6H PRN IV 05/26/25 15:15 05/28/25 14:55 10 MG Hydralazine HCl 50 mg Q8HR PO 05/26/25 22:00 05/30/25 15:06 50 MG Amlodipine Besylate 10 mg DAILY PO 05/27/25 10:00 05/30/25 12:00 10 MG Metoprolol Tartrate 50 mg BID PO 05/26/25 22:00 05/30/25 12:01 50 MG objective Awake alert oriented x3 HEENT: Normocephalic, no JVD, periorbital edema present Lungs: Diminished breath sounds at bases CVS: S1, S2 regular rate rhythm Abdomen: Distended EDITOR IN CHIEF: No focal deficits Extremities: 2+ edema laboratory and microbiology Laboratory Tests 05/30/25 05:19 Test 05/30/25 05:19 Range/Units Serum Glucose 110 H 74-106 mg/dL Assessment/Plan End-stage kidney disease Hyperkalemia Chronic metabolic acidosis Hypertension Anemia in Chronic kidney disease Proteinuria Assessment/Plan s/p HD on Friday Next HD on Friday. goal 3 L UF Fluid restriction discussed Awaiting outpatient HD chair time Continue Amlodipine 10 mg daily, and Metoprolol 50 mg PO BID ALICE post HD Plan discussed with: Patient GARY MCKINNON MD May 30, 2025 16:37
[2025-05-31] VITALS (7 sets, daily range): BP systolic 127–148; BP diastolic 73–81; PULSE 66–84; RESP 16–18; TEMP 97.7–98.2; O2SAT 90–96
[2025-05-31 06:34] LABS: Nucleated Red Blood Cells % 0.0 %
[2025-05-31 06:37] LABS: Hematocrit 23.9 % (36.0-46.0); Hemoglobin 7.7 g/dL (12.2-16.2); Mean Corpuscular Hemoglobin 25.5 pg (28.0-32.0); Mean Corpuscular Volume 79.7 fL (80.0-100.0)
[2025-05-31 06:42] LABS: Alanine Aminotransferase 15 U/L (7-40); Albumin 2.5 g/dL (3.2-4.8); Alkaline Phosphatase 188 U/L (46-116); Anion Gap 7 (5-15); BUN/Creatinine Ratio 7.6 (10.0-20.0); Bilirubin, Total 0.2 mg/dL (0.2-1.0); Blood Urea Nitrogen 36 mg/dL (9-23); Calcium 7.2 mg/dL (8.7-10.4); Carbon Dioxide 27 mmol/L (20-31); Chloride 103 mmol/L (98-107); Glucose 155 mg/dL (74-106); Magnesium 1.9 mg/dL (1.6-2.6); Potassium 5.0 mmol/L (3.5-5.1); Sodium 137 mmol/L (136-145); Total Protein 5.0 g/dL (5.7-8.2)
[2025-05-31] MEDS ORDERED: SODIUM CHL 0.9% 1000 ML BAG XX ONE (07:00)
--- NOTE | 2025-05-31 10:43 | DVHPN2 ---
Subjective Patient denies any symptoms at this time Reviewed: Care Plan, H&P, Labs, Medications, Previous Orders, Radiology Changes from previous H/P or p: No Changes General: Per HPI Objective Vitals Vital Signs Date Time Temp Pulse Resp B/P (MAP) Pulse Ox O2 Delivery O2 Flow Rate FiO2 05/31/25 08:38 97.7 72 16 128/74 (92) 94 97.7 05/30/25 20:00 Room Air* 0 21 Intake/Output Intake and Output 05/31/25 07:00 Intake Total 1000 ml Balance 1000 ml Intake Oral 1000 ml # Voids 9 General Appearance: Alert, Oriented X3, Cooperative, mild distress HEENT: Atraumatic, PERRLA Lungs: Clear to auscultation, Normal air movement Cardiovascular: Normal S1, Normal S2 Abdomen: Normal bowel sounds, Soft, No tenderness, No hepatospenomegaly Musculoskeletal: Normal sensory function, Normal motor function Neuro: Normal speech Skin: Dry, Intact Psych/Mental Status: Mental status NL, Mood NL Medications Current Medications Medications Dose Ordered Sig/Thaddeus Route Start Time Stop Time Status Last Admin Dose Admin Sodium Chloride 10 ml Q8HR IV 05/26/25 22:00 05/31/25 05:42 10 ML Docusate Sodium 100 mg BIDPRN PRN PO 05/26/25 15:15 Acetaminophen 650 mg Q6HP PRN PO 05/26/25 15:15 05/26/25 16:23 650 MG Acetaminophen/ Hydrocodone Bitart 1 tab Q4HP PRN PO 05/26/25 15:15 05/30/25 06:01 1 TAB Hydromorphone HCl 0.5 mg Q4HP PRN IV 05/26/25 15:15 Hold Ondansetron HCl 4 mg Q4HP PRN IV 05/26/25 15:15 05/31/25 09:07 4 MG Diagnostic Test (Pha) 1 strip ACHS 05/26/25 17:00 05/31/25 05:47 1 STRIP Insulin Human Regular ACHS SC 05/26/25 17:00 05/31/25 05:44 2 UNITS Dextrose 50 ml UD PRN IV 05/26/25 15:15 Hydralazine HCl 10 mg Q6H PRN IV 05/26/25 15:15 05/28/25 14:55 10 MG Hydralazine HCl 50 mg Q8HR PO 05/26/25 22:00 05/31/25 05:43 50 MG Amlodipine Besylate 10 mg DAILY PO 05/27/25 10:00 05/30/25 12:00 10 MG Metoprolol Tartrate 50 mg BID PO 05/26/25 22:00 05/30/25 22:00 50 MG Laboratory Results Laboratory Tests 05/31/25 05:24 Chemistry Test 05/31/25 05:24 Albumin 2.5 g/dL (3.2-4.8) L Calcium Level 7.2 mg/dL (8.7-10.4) L Magnesium Level 1.9 mg/dL (1.6-2.6) Total Protein 5.0 g/dL (5.7-8.2) L LFT Test 05/31/25 05:24 Alanine Aminotransferase (ALT) 15 U/L (7-40) Alkaline Phosphatase 188 U/L (46-116) H Aspartate Amino Transferase (AST) 15 U/L (13-40) Total Bilirubin 0.2 mg/dL (0.2-1.0) Urinalysis Test 05/26/25 13:44 Urine Color Light-yellow (Yellow) Urine Clarity Clear (Clear) Urine pH 6.5 (5.0-9.0) Urine Specific [place] 1.014 (1.001-1.035) Urine Protein 3+ (Negative) H Urine Ketones Negative (Negative) Urine Blood 1+ /uL (Negative) H Urine Nitrite Negative (Negative) Urine Bilirubin Negative (Negative) Urine Urobilinogen Normal mg/dL (Negative) Urine Leukocyte Esterase Negative /uL (Negative) Urine RBC 2 /hpf (0 - 4) Urine Microscopic WBC 3 /HPF (0-5) Urine Squamous Epithelial Cells Few /hpf (<5) Urine Bacteria Few /hpf (None Seen) H Urine Glucose 4+ mg/dL (Normal) H Microbiology Microbiology Date/Time Source Procedure Growth Status 05/27/25 13:54 Nose MRSA Screen - Final Complete Labs and/or images reviewed: Labs reviewed by me, Image(s) reviewed by me Assessment/Plan Assessment/Plan Impression: -ESRD with new onset of hemodialysis -hyperkalemia -diabetes mellitus -primary hypertension -obesity Plan: Events: Patient continues to wait for hemodialysis chart time. Time taken to receive hemodialysis today, with hemodialysis chair time machine. Patient reporting generalized weakness sign nausea. -continue antihypertensives -regular insulin sliding scale -antiemetics -reassess for discharge planning. Total time spent with patient discussing and formulating plan of care: 35 minutes. This medical document was created using an electronic medical record system with [employer] dictation system. Although this document has been carefully reviewed, there may still be some phonetic and typographical errors. These areas are purely typographical due to imperfections of the software programs, and do not reflect any compromise in the patient's medical care. Plan discussed with: Patient, Other (RN) Date of Service: May 31, 2025 Billing Provider: IMELDA NARAYANAN NP Common Visit Codes: [id number] INP/OBS CARE(HIGH) IMELDA NARAYANAN NP May 31, 2025 10:43
--- NOTE | 2025-05-31 16:32 | DVHPN2 ---
Progress Note - Dictate Date Seen: May 31, 2025 Medical Necessity Reason Pt with a Central, PICC or Fol: No Subjective no new symptoms vital signs Vital Sign Date Time Temp Pulse Resp B/P (MAP) Pulse Ox O2 Delivery O2 Flow Rate FiO2 05/31/25 13:00 98.1 66 16 131/81 (98) 95 98.1 05/31/25 08:00 Room Air* 0 21 Total Intake and Output 05/30/25 05/30/25 05/31/25 15:00 23:00 07:00 Intake Total 600 ml 400 ml Balance 600 ml 400 ml medications Current Medications Medications Dose Ordered Sig/Thaddeus Route Start Time Stop Time Status Last Admin Dose Admin Sodium Chloride 10 ml Q8HR IV 05/26/25 22:00 05/31/25 05:42 10 ML Docusate Sodium 100 mg BIDPRN PRN PO 05/26/25 15:15 Acetaminophen 650 mg Q6HP PRN PO 05/26/25 15:15 05/26/25 16:23 650 MG Acetaminophen/ Hydrocodone Bitart 1 tab Q4HP PRN PO 05/26/25 15:15 05/30/25 06:01 1 TAB Hydromorphone HCl 0.5 mg Q4HP PRN IV 05/26/25 15:15 Hold Ondansetron HCl 4 mg Q4HP PRN IV 05/26/25 15:15 05/31/25 09:07 4 MG Diagnostic Test (Pha) 1 strip ACHS 05/26/25 17:00 05/31/25 05:47 1 STRIP Insulin Human Regular ACHS SC 05/26/25 17:00 05/31/25 05:44 2 UNITS Dextrose 50 ml UD PRN IV 05/26/25 15:15 Hydralazine HCl 10 mg Q6H PRN IV 05/26/25 15:15 05/28/25 14:55 10 MG Hydralazine HCl 50 mg Q8HR PO 05/26/25 22:00 05/31/25 05:43 50 MG Amlodipine Besylate 10 mg DAILY PO 05/27/25 10:00 05/31/25 10:50 10 MG Metoprolol Tartrate 50 mg BID PO 05/26/25 22:00 05/31/25 10:50 50 MG objective Awake alert oriented x3 HEENT: Normocephalic, no JVD, periorbital edema present Lungs: Diminished breath sounds at bases CVS: S1, S2 regular rate rhythm Abdomen: Distended 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 net UF 3 L Next HD on if still in house. but she has a confirmed dialysis chair at [facility], which she can follow up and have her dialysis on . Fluid restriction discussed Continue Amlodipine 10 mg daily, and Metoprolol 50 mg PO BID ALICE post HD Plan discussed with: Patient, Other GARY MCKINNON MD May 31, 2025 16:32
[2025-05-31] MEDS: EPOETIN ALFA-EPBX 10,000 UNIT/1ML VIAL SC ONE (21:16)
[2025-06-01] VITALS (7 sets, daily range): BP systolic 127–158; BP diastolic 71–98; PULSE 72–79; RESP 16–18; TEMP 36.5; O2SAT 93–97
--- NOTE | 2025-06-01 10:12 | DVHPN2 ---
Subjective Reporting nausea and inability to eat. Reviewed: Care Plan, H&P, Labs, Medications, Previous Orders, Radiology Changes from previous H/P or p: Changes General: Per HPI Objective Vitals Vital Signs Date Time Temp Pulse Resp B/P (MAP) Pulse Ox O2 Delivery O2 Flow Rate FiO2 06/01/25 10:06 72 142/80 06/01/25 08:59 97.2 16 94 97.2 05/31/25 20:00 Room Air* 0 21 Intake/Output Intake and Output 06/01/25 07:00 Intake Total 1050 ml Balance 1050 ml Intake Oral 1050 ml # Voids 6 # Bowel Movements 1 General Appearance: Alert, Oriented X3, Cooperative, mild distress HEENT: Atraumatic, PERRLA Lungs: Clear to auscultation, Normal air movement Cardiovascular: Normal S1, Normal S2 Abdomen: Normal bowel sounds, Soft, No tenderness, No hepatospenomegaly Musculoskeletal: Normal sensory function, Normal motor function Neuro: Normal speech Skin: Dry, Intact Psych/Mental Status: Mental status NL, Mood NL Medications Current Medications Medications Dose Ordered Sig/Thaddeus Route Start Time Stop Time Status Last Admin Dose Admin Sodium Chloride 10 ml Q8HR IV 05/26/25 22:00 06/01/25 05:21 10 ML Docusate Sodium 100 mg BIDPRN PRN PO 05/26/25 15:15 Acetaminophen 650 mg Q6HP PRN PO 05/26/25 15:15 05/26/25 16:23 650 MG Acetaminophen/ Hydrocodone Bitart 1 tab Q4HP PRN PO 05/26/25 15:15 05/30/25 06:01 1 TAB Hydromorphone HCl 0.5 mg Q4HP PRN IV 05/26/25 15:15 Hold Ondansetron HCl 4 mg Q4HP PRN IV 05/26/25 15:15 05/31/25 09:07 4 MG Diagnostic Test (Pha) 1 strip ACHS 05/26/25 17:00 06/01/25 05:52 1 STRIP Insulin Human Regular ACHS SC 05/26/25 17:00 06/01/25 05:51 3 UNITS Dextrose 50 ml UD PRN IV 05/26/25 15:15 Hydralazine HCl 10 mg Q6H PRN IV 05/26/25 15:15 05/28/25 14:55 10 MG Hydralazine HCl 50 mg Q8HR PO 05/26/25 22:00 06/01/25 05:21 50 MG Amlodipine Besylate 10 mg DAILY PO 05/27/25 10:00 06/01/25 10:05 10 MG Metoprolol Tartrate 50 mg BID PO 05/26/25 22:00 06/01/25 10:06 50 MG Laboratory Results Laboratory Tests 05/31/25 05:24 Urinalysis Test 05/26/25 13:44 Urine Color Light-yellow (Yellow) Urine Clarity Clear (Clear) Urine pH 6.5 (5.0-9.0) Urine Specific [place] 1.014 (1.001-1.035) Urine Protein 3+ (Negative) H Urine Ketones Negative (Negative) Urine Blood 1+ /uL (Negative) H Urine Nitrite Negative (Negative) Urine Bilirubin Negative (Negative) Urine Urobilinogen Normal mg/dL (Negative) Urine Leukocyte Esterase Negative /uL (Negative) Urine RBC 2 /hpf (0 - 4) Urine Microscopic WBC 3 /HPF (0-5) Urine Squamous Epithelial Cells Few /hpf (<5) Urine Bacteria Few /hpf (None Seen) H Urine Glucose 4+ mg/dL (Normal) H Microbiology Microbiology Date/Time Source Procedure Growth Status 05/27/25 13:54 Nose MRSA Screen - Final Complete Labs and/or images reviewed: Labs reviewed by me, Image(s) reviewed by me Assessment/Plan Assessment/Plan Impression: -ESRD with new onset of hemodialysis -hyperkalemia -diabetes mellitus -primary hypertension -obesity -Questionable gastroparesis Plan: Events: persistent Nausea -NPO -GI consult -KUB -Trial of Reglan -continue antihypertensives -regular insulin sliding scale -antiemetics -reassess for discharge planning. Total time spent with patient discussing and formulating plan of care: 35 minutes. This medical document was created using an electronic medical record system with [employer] dictation system. Although this document has been carefully reviewed, there may still be some phonetic and typographical errors. These areas are purely typographical due to imperfections of the software programs, and do not reflect any compromise in the patient's medical care. Plan discussed with: Patient, Other (RN) My Orders Orders - IMELDA NARAYANAN DOBIE WORKER Procedure Category Date Status Time Npo (Nothing By DIET 06/01/25 Verified Mouth) Diet Lunch * Gi Dvh Block Mason CONS 06/01/25 Verified 10:04 Kub Abdomen Single XY 06/01/25 Verified View 10:04 Date of Service: Jun 01, 2025 Billing Provider: IMELDA NARAYANAN NP Common Visit Codes: [id number] INP/OBS CARE(HIGH) IMELDA NARAYANAN NP Jun 01, 2025 10:12
[2025-06-01 12:22] LABS: Chloride 104 mmol/L (98-107); Potassium 4.8 mmol/L (3.5-5.1); Sodium 140 mmol/L (136-145)
[2025-06-01 12:23] LABS: Anion Gap 10 (5-15); Carbon Dioxide 26 mmol/L (20-31)
[2025-06-01 12:24] LABS: Calcium 7.4 mg/dL (8.7-10.4)
[2025-06-01 12:28] LABS: BUN/Creatinine Ratio 8.4 (10.0-20.0)
[2025-06-01 12:30] LABS: Blood Urea Nitrogen 34 mg/dL (9-23); Glucose 126 mg/dL (74-106)
--- NOTE | 2025-06-01 14:13 | DVH ---
Date: 06/01/2025 01:36 PM Examination: XY KUB ABDOMEN SINGLE VIEW History: nausea and abdominal distension COMPARISON: None TECHNIQUE: Frontal views of the abdomen was obtained. FINDINGS: Bowel gas pattern is unremarkable. No abnormally distended bowel or stomach. The lung bases are unremarkable. No acute osseous abnormality identified. IMPRESSION: 1. Nonobstructive bowel gas pattern.
--- NOTE | 2025-06-01 14:47 | DVHPN2 ---
Progress Note - Dictate Date Seen: Jun 01, 2025 Medical Necessity Reason Pt with a Central, PICC or Fol: No Subjective no new symptoms vital signs Vital Sign Date Time Temp Pulse Resp B/P (MAP) Pulse Ox O2 Delivery O2 Flow Rate FiO2 06/01/25 14:31 158/98 06/01/25 13:54 97.4 76 16 97 97.4 06/01/25 08:00 Room Air* 0 21 Total Intake and Output 05/31/25 05/31/25 06/01/25 15:00 23:00 07:00 Intake Total 650 ml 400 ml Balance 650 ml 400 ml medications Current Medications Medications Dose Ordered Sig/Thaddeus Route Start Time Stop Time Status Last Admin Dose Admin Sodium Chloride 10 ml Q8HR IV 05/26/25 22:00 06/01/25 05:21 10 ML Docusate Sodium 100 mg BIDPRN PRN PO 05/26/25 15:15 Acetaminophen 650 mg Q6HP PRN PO 05/26/25 15:15 05/26/25 16:23 650 MG Acetaminophen/ Hydrocodone Bitart 1 tab Q4HP PRN PO 05/26/25 15:15 05/30/25 06:01 1 TAB Hydromorphone HCl 0.5 mg Q4HP PRN IV 05/26/25 15:15 Hold Ondansetron HCl 4 mg Q4HP PRN IV 05/26/25 15:15 05/31/25 09:07 4 MG Diagnostic Test (Pha) 1 strip ACHS 05/26/25 17:00 06/01/25 11:30 1 STRIP Insulin Human Regular ACHS SC 05/26/25 17:00 06/01/25 05:51 3 UNITS Dextrose 50 ml UD PRN IV 05/26/25 15:15 Hydralazine HCl 10 mg Q6H PRN IV 05/26/25 15:15 05/28/25 14:55 10 MG Hydralazine HCl 50 mg Q8HR PO 05/26/25 22:00 06/01/25 14:31 50 MG Amlodipine Besylate 10 mg DAILY PO 05/27/25 10:00 06/01/25 10:05 10 MG Metoprolol Tartrate 50 mg BID PO 05/26/25 22:00 06/01/25 10:06 50 MG objective Awake alert oriented x3 HEENT: Normocephalic, no JVD, periorbital edema present Lungs: Diminished breath sounds at bases CVS: S1, S2 regular rate rhythm Abdomen: Distended DATA NETWORK ARCHITECT: No focal deficits Extremities: 2+ edema laboratory and microbiology Laboratory Tests 06/01/25 12:05 05/31/25 05:24 Test 06/01/25 12:05 Range/Units Serum Glucose 126 H 74-106 mg/dL Assessment/Plan End-stage kidney disease Hyperkalemia, resolved Chronic metabolic acidosis Hypertension Anemia in Chronic kidney disease Proteinuria Assessment/Plan s/p HD Friday. net UF 3 L Next HD on if still in house. but she has a confirmed dialysis chair at [facility], which she can follow up and have her dialysis on . Fluid restriction discussed Continue Amlodipine 10 mg daily, and Metoprolol 50 mg PO BID ALICE post HD Dietary Evaluation Review Comments: Follw ESRD dialysis regimen and renal diet. Encourage patient to adhere to a CCHO-Renal diet consistently. Monitor oral intake to ensure adequacy and help maintain blood sugar within normal limits (WNL). Advise patient to take a walk after each meal. Increase daily physical activity as tolerated to promote better glycemic control and weight management Expected Outcomes/Goals: controlled diabetes, healed wounds, gradual wt loss Plan discussed with: Patient, Other GARY MCKINNON MD Jun 01, 2025 14:47
[2025-06-01] MEDS ORDERED: METO5TAB67 PO (16:05)
--- NOTE | 2025-06-01 16:14 | DVHDS2 ---
Discharge Summary Date of Admission May 26, 2025 at 15:09 Date of Discharge: Jun 01, 2025 Admitting Diagnosis Hyperkalemia Labs/Diagnostic Data: Laboratory Results Test 06/01/25 12:15 06/01/25 12:05 05/31/25 05:24 05/30/25 05:19 POC Glucose 129 mg/dl (70-106) Sodium Level 140 mmol/L (136-145) Potassium Level 4.8 mmol/L (3.5-5.1) Chloride Level 104 mmol/L (98-107) Carbon Dioxide Level 26 mmol/L (20-31) Anion Gap 10 (5-15) Blood Urea Nitrogen 34 mg/dL (9-23) Creatinine 4.07 mg/dL (0.550-1.02) Glomerular Filtration Rate Calc 13 mL/min (>90) BUN/Creatinine Ratio 8.4 (10.0-20.0) Serum Glucose 126 mg/dL (74-106) Calcium Level 7.4 mg/dL (8.7-10.4) White Blood Count 6.8 10^3/uL (4.4-10.8) Red Blood Count 3.00 10^6/uL (4.0-5.20) Hemoglobin 7.7 g/dL (12.2-16.2) Hematocrit 23.9 % (36.0-46.0) Mean Corpuscular Volume 79.7 fL (80.0-100.0) Mean Corpuscular Hemoglobin 25.5 pg (28.0-32.0) Mean Corpuscular Hemoglobin Concent 32.0 g/dL (32.0-36.0) Red Cell Distribution Width 15.1 % (11.8-14.3) Platelet Count 235 10^3/uL (140-450) Mean Platelet Volume 8.1 fL (6.9-10.8) Neutrophils (%) (Auto) 64.7 % (37.0-80.0) Lymphocytes (%) (Auto) 19.4 % (10.0-50.0) Monocytes (%) (Auto) 12.5 % (0.0-12.0) Eosinophils (%) (Auto) 2.9 % (0.0-7.0) Basophils (%) (Auto) 0.5 % (0.0-2.0) Neutrophils # (Auto) 4.4 10 ^3/uL (1.6-8.6) Lymphocytes # (Auto) 1.3 10 ^3/uL (0.4-5.4) Monocytes # (Auto) 0.8 10 ^3/uL (0-1.3) Eosinophils # (Auto) 0.2 10 ^3/uL (0-0.8) Basophils # (Auto) 0 10 ^3/uL (0-0.2) Nucleated Red Blood Cells 0.0 % Magnesium Level 1.9 mg/dL (1.6-2.6) Total Bilirubin 0.2 mg/dL (0.2-1.0) Aspartate Amino Transferase (AST) 15 U/L (13-40) Alanine Aminotransferase (ALT) 15 U/L (7-40) Alkaline Phosphatase 188 U/L (46-116) Total Protein 5.0 g/dL (5.7-8.2) Albumin 2.5 g/dL (3.2-4.8) Hemoglobin A1c 6.6 % A1C (<5.7) Hepatitis B Core Total Antibody Negative (Negative) Test 05/27/25 13:54 05/26/25 13:44 05/26/25 13:43 SARS-CoV-2 Antigen (Rapid) Negative (NEGATIVE) Urine Color Light-yellow (Yellow) Urine Clarity Clear (Clear) Urine pH 6.5 (5.0-9.0) Urine Specific [place] 1.014 (1.001-1.035) Urine Protein 3+ (Negative) Urine Ketones Negative (Negative) Urine Blood 1+ /uL (Negative) Urine Nitrite Negative (Negative) Urine Bilirubin Negative (Negative) Urine Urobilinogen Normal mg/dL (Negative) Urine Leukocyte Esterase Negative /uL (Negative) Urine RBC 2 /hpf (0 - 4) Urine Microscopic WBC 3 /HPF (0-5) Urine Squamous Epithelial Cells Few /hpf (<5) Urine Bacteria Few /hpf (None Seen) Urine Glucose 4+ mg/dL (Normal) Prothrombin Time 10.8 sec (9.3-11.8) Prothrombin Time INR 1.02 (0.9-1.15) Activated Partial Thromboplast Time 24.5 SEC (24.5-34.5) Phosphorus Level 6.6 mg/dL (2.4-5.1) Hepatitis B Surface Antigen Negative (Negative) Hepatitis B Surface Antibody Positive (Negative) Hepatitis C Antibody Negative (Negative) Other Laboratory Tests 06/01/25 12:05 05/31/25 05:24 Brief Hx & Hospital Course: History of Present Illness 40 y/o F, with PMHx of CKF presents to the ED for CC of abnormal labs. Patient states, she was sent by her nephro for initiation of dialysis d/t elevated potassium and creatinine levels. At this time patient reports, generalized body pain. No other symptoms or modifying factors are reported. Course of hospitalization: IR consultation was obtained. Patient had tunneled dialysis catheter placed. Patient was treated with regular insulin sliding scale given her history of diabetes mellitus. Patient's hyperkalemia was resolved after having multiple treatments of hemodialysis. Patient obtained outpatient HD chair time. Prior to being discharged, patient reported having nausea and inability tolerate oral intake yesterday evening and today. Patient was given a trial of Reglan, with improvement of patient's symptoms. Patient will be discharged home and proceed with outpatient HD, with her established appointment tomorrow. She will continue all previous home medications and continue with Reglan 5 mg p.o. before meals. She is instructed to follow up with her PCP at next available appointment. Physical exam General: Alert and Oriented x3. No acute distress. Well-nourished. Obese Eyes: EOMI. Anicteric. HENT: Moist mucous membranes. Lungs: Clear to auscultation bilaterally. No accessory muscle use. Cardiovascular: Regular rate and rhythm. No murmur. No JVD. Abdomen: Soft, non-tender and non-distended. No palpable masses. Extremities: No edema. Non-tender. Skin: No rashes or lesions. Warm. Neurologic: No focal neurological deficits. CN II-XII grossly intact, but not individually tested. Psychiatric: Cooperative. Appropriate mood and affect. Total time spent with patient discussing and formulating plan of care: 35 minutes. This medical document was created using an electronic medical record system with mobli dictation system. Although this document has been carefully reviewed, there may still be some phonetic and typographical errors. These areas are purely typographical due to imperfections of the software programs, and do not reflect any compromise in the patient's medical care. Consults/Reason for consult Nephrology: ESRD with hyperkalemia Condition at Discharge: Guarded Final Diagnosis/Problems List -ESRD with new onset of hemodialysis -hyperkalemia -diabetes mellitus -primary hypertension -obesity -Questionable gastroparesis Discharge Disposition: Home Discharge Instruct/Medications Diet: Consistent carbohydrate, Renal Activity: No Restrictions, As Tolerated Follow Up/Referral: HD chair time tomorrow PCP in 1-2 weeks Medications: Reglan 5 mg p.o. before meals Continue home medications Scheduled Metoclopramide Hcl (Reglan), 5 MG PO AC 36 Discharge Statement: "Patient was advised to return to the ER or call 911 if any headaches, dizziness, shortness of breath, chest pain, abdominal pain, bleeding, fevers, or worsening of medical condition. Patient was counseled about treatment plan, medications, possible side effects, patientverbalized understanding. All questions were answered to the best of my ability. This discharge took greater then 30 minutes in planning, reviewing documentation, counseling the patient, and discussing with other team members." ASSESSMENT ASSESSMENT Assessment Date of Service: Jun 01, 2025 Billing Provider: IMELDA NARAYANAN NP Common Visit Codes: 33065-HNH/OBS DISCH DAY >30min IMELDA NARAYANAN NP Jun 01, 2025 16:14
--- NOTE | 2025-06-01 16:15 | DVHINCON2 ---
Date of service: Jun 01, 2025 Referring Physician Ab Reason for Consultation N/V abd distension History of Present Illness 40 y/o F, with PMHx of CKF presents to the ED for CC of abnormal labs. Patient states, she was sent by her nephro for initiation of dialysis d/t elevated potassium and creatinine levels. At this time patient reports, generalized body pain. No other symptoms or modifying factors are reported. Past Medical History PAST MEDICAL HISTORY: CKF Past Surgical History Surgical History: Denies all surgeries WHEEL FITTER History: Denies all WHEEL FITTER Hx Family History: Unknown Family History: Patient reports no known family medical history. 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 Review of Systems Social History Smoker: Non-Smoker Alcohol: Denies ETOH Use Drugs: Denies Drug Use Lives In: Home Vital Signs Vital Signs Date Time Temp Pulse Resp B/P (MAP) Pulse Ox O2 Delivery O2 Flow Rate FiO2 06/01/25 14:31 158/98 06/01/25 13:54 97.4 76 16 97 97.4 06/01/25 08:00 Room Air* 0 21 Physical Exam Awake alert oriented x3 HEENT: Normocephalic, no JVD, periorbital edema present Lungs: Diminished breath sounds at bases CVS: S1, S2 regular rate rhythm Abdomen: Distended OPERATIONS OFFICER: No focal deficits Ext 2 + edema Labs/Diagnostic Data Labs Test 06/01/25 12:15 06/01/25 12:05 05/31/25 05:24 05/30/25 05:19 Range/Units POC Glucose 129 H 70-106 mg/dl Sodium Level 140 136-145 mmol/L Potassium Level 4.8 3.5-5.1 mmol/L Chloride Level 104 98-107 mmol/L Carbon Dioxide Level 26 20-31 mmol/L Anion Gap 10 5-15 Blood Urea Nitrogen 34 H 9-23 mg/dL Creatinine 4.07 H 0.550-1.02 mg/dL Glomerular Filtration Rate Calc 13 >90 mL/min BUN/Creatinine Ratio 8.4 L 10.0-20.0 Serum Glucose 126 H 74-106 mg/dL Calcium Level 7.4 L 8.7-10.4 mg/dL White Blood Count 6.8 4.4-10.8 10^3/uL Red Blood Count 3.00 L 4.0-5.20 10^6/uL Hemoglobin 7.7 L 12.2-16.2 g/dL Hematocrit 23.9 L 36.0-46.0 % Mean Corpuscular Volume 79.7 L 80.0-100.0 fL Mean Corpuscular Hemoglobin 25.5 L 28.0-32.0 pg Mean Corpuscular Hemoglobin Concent 32.0 32.0-36.0 g/dL Red Cell Distribution Width 15.1 H 11.8-14.3 % Platelet Count 235 140-450 10^3/uL Mean Platelet Volume 8.1 6.9-10.8 fL Neutrophils (%) (Auto) 64.7 37.0-80.0 % Lymphocytes (%) (Auto) 19.4 10.0-50.0 % Monocytes (%) (Auto) 12.5 H 0.0-12.0 % Eosinophils (%) (Auto) 2.9 0.0-7.0 % Basophils (%) (Auto) 0.5 0.0-2.0 % Neutrophils # (Auto) 4.4 1.6-8.6 10 ^3/uL Lymphocytes # (Auto) 1.3 0.4-5.4 10 ^3/uL Monocytes # (Auto) 0.8 0-1.3 10 ^3/uL Eosinophils # (Auto) 0.2 0-0.8 10 ^3/uL Basophils # (Auto) 0 0-0.2 10 ^3/uL Nucleated Red Blood Cells 0.0 % Magnesium Level 1.9 1.6-2.6 mg/dL Total Bilirubin 0.2 0.2-1.0 mg/dL Aspartate Amino Transferase (AST) 15 13-40 U/L Alanine Aminotransferase (ALT) 15 7-40 U/L Alkaline Phosphatase 188 H 46-116 U/L Total Protein 5.0 L 5.7-8.2 g/dL Albumin 2.5 L 3.2-4.8 g/dL Hemoglobin A1c 6.6 H <5.7 % A1C Hepatitis B Core Total Antibody Negative Negative Test 05/27/25 13:54 05/26/25 13:44 05/26/25 13:43 Range/Units SARS-CoV-2 Antigen (Rapid) Negative NEGATIVE Urine Color Light-yellow Yellow Urine Clarity Clear Clear Urine pH 6.5 5.0-9.0 Urine Specific [place] 1.014 1.001-1.035 Urine Protein 3+ H Negative Urine Ketones Negative Negative Urine Blood 1+ H Negative /uL Urine Nitrite Negative Negative Urine Bilirubin Negative Negative Urine Urobilinogen Normal Negative mg/dL Urine Leukocyte Esterase Negative Negative /uL Urine RBC 2 0 - 4 /hpf Urine Microscopic WBC 3 0-5 /HPF Urine Squamous Epithelial Cells Few <5 /hpf Urine Bacteria Few H None Seen /hpf Urine Glucose 4+ H Normal mg/dL Prothrombin Time 10.8 9.3-11.8 sec Prothrombin Time INR 1.02 0.9-1.15 Activated Partial Thromboplast Time 24.5 24.5-34.5 SEC Phosphorus Level 6.6 H 2.4-5.1 mg/dL Hepatitis B Surface Antigen Negative Negative Hepatitis B Surface Antibody Positive H Negative Hepatitis C Antibody Negative Negative Microbiology Date/Time Source Procedure Growth Status 05/27/25 13:54 Nose MRSA Screen - Final Complete CXR Negative Problems(with codes): (1) Diabetic gastroparesis (2) ESRD (end stage renal disease) (3) Renal failure (4) Hyperkalemia (5) Anemia of chronic disease Plan/Recommendation Plan Continue supportive care Advance diet as tolerated Patient appears to have anemia of chronic disease Nausea and vomiting likely related to gastroparesis Give her a trial of IV Protonix and Reglan If the patient continues to be symptomatic I will be standing by for an endoscopy Plan discussed with: Other (Nurse) RON LOBO MD Jun 01, 2025 16:15
[2025-06-01] MEDS ORDERED: ONDANSETRON HCL 4 MG/2 ML VIAL IV PRN (16:45)
[2025-06-01] MEDS ORDERED: METOCLOPRAMIDE HCL 5MG/ml INJ 2ml VIAL IV SCH (22:00)
[2025-06-02] MEDS ORDERED: PANTOPRAZOLE 40 MG/10 ML VIAL INJ IV SCH (10:00)
== END 2025-06-01 21:15 | disposition home or self-care (01) | DRG 425 ==
LOC: ER 13:10 → OVERFLOW 15:09 → TELE-CENTR 05-27 01:25
PROVIDERS: ADMIT Nurse Practitioner Acute Care; ATTEND Nurse Practitioner Acute Care
PROC: 05HF33Z Insertion of Infusion Device into Left Cephalic Vein, Percutaneous Approach (ICD-10-PCS; 2025-05-26)
PROC: B54NZZA Ultrasonography of Left Upper Extremity Veins, Guidance (ICD-10-PCS; 2025-05-26)
PROC: 5A1D70Z Performance of Urinary Filtration, Intermittent, Less than 6 Hours Per Day (ICD-10-PCS; principal; 2025-05-27)
PROC: 0JH63XZ Insertion of Tunneled Vascular Access Device into Chest Subcutaneous Tissue and Fascia, Percutaneous Approach (ICD-10-PCS; 2025-05-27)
PROC: 02H633Z Insertion of Infusion Device into Right Atrium, Percutaneous Approach (ICD-10-PCS; 2025-05-27)
PROC: B5181ZA Fluoroscopy of Superior Vena Cava using Low Osmolar Contrast, Guidance (ICD-10-PCS; 2025-05-27)
PROC: B548ZZA Ultrasonography of Superior Vena Cava, Guidance (ICD-10-PCS; 2025-05-27)
PROC: 5A1D70Z Performance of Urinary Filtration, Intermittent, Less than 6 Hours Per Day (ICD-10-PCS; 2025-05-28)
PROC: 5A1D70Z Performance of Urinary Filtration, Intermittent, Less than 6 Hours Per Day (ICD-10-PCS; 2025-05-31)
DX: E87.5 Hyperkalemia (principal); E87.22 Chronic metabolic acidosis; I12.0 Hypertensive chronic kidney disease with stage 5 chronic kidney disease or end stage renal disease; E83.39 Other disorders of phosphorus metabolism; N18.6 End stage renal disease; E11.43 Type 2 diabetes mellitus with diabetic autonomic (poly)neuropathy; D63.1 Anemia in chronic kidney disease; E66.9 Obesity, unspecified; E11.22 Type 2 diabetes mellitus with diabetic chronic kidney disease; Z20.822 Contact with and (suspected) exposure to COVID-19; K31.84 Gastroparesis; E83.42 Hypomagnesemia; R80.9 Proteinuria, unspecified; Z88.5 Allergy status to narcotic agent; Z88.0 Allergy status to penicillin; Z68.41 Body mass index [BMI] 40.0-44.9, adult; Z79.899 Other long term (current) drug therapy; Z79.4 Long term (current) use of insulin
CPT/HCPCS: 36415; 36558; 71045; 74018; 77001; 80048; 80053; 81001; 82962; 83036; 83735; 84100; 85025; 85610; 85730; 86706; 86803; 87081; 87340; 87426; 90935; 93005; 94640; 96374; 96375; 99152; 99291; C1894; G0378; J1642; J1815; J2250; J2405